=== PATIENT | female | born 1960 | race Caucasian/White ===

== ENCOUNTER → 2019-06-08 09:02 | Outpatient (CLI) | payer MEDICARE, MEDICAID, SELFPAY ==
--- NOTE | 2019-06-08 | DI.MRI.S_ITS ---
PROCEDURE: MR CERVICAL SPINE WO CON INDICATIONS: CERVICALGIA LOW BACK PAIN TECHNIQUE: Noncontrast sagittal T1 spin echo and T2 fast spin echo, sagittal STIR, foraminal oblique sagittal T2 fast spin echo, and axial gradient echo or T2 fast spin echo through the cervical spine. COMPARISON: [facility] Outside Film, CT, CT CERVICAL SPINE WITHOUT CONTRAST, 04/24/2016, 12:29. [facility], MR, MR LUMBAR SPINE WO CON, 06/08/2019, 9:51. [facility] [place], CR, XR CERVICAL SPINE 2 OR 3 VIEWS, 05/23/2019, 14:30. [facility] Outside Film, CT, CT CERVICAL SPINE WITHOUT CONTRAST, 11/13/2016, 14:29. FINDINGS: Image quality: This examination is limited by involuntary motion artifact. Images are repeated, with some improvement. Alignment and Curvature: There is normal bony alignment. Bone Marrow: Marrow demonstrates normal overall signal. Scattered foci are seen, which are hyperintense on T1-weighted and T2-weighted imaging, which are most consistent with benign vertebral body hemangiomas. Spinal Cord: Visualized spinal cord has normal size and signal. No cerebellar tonsillar herniation. Paraspinous Soft Tissues: No paravertebral masses. Prevertebral soft tissues are normal in thickness. C2-C3: Moderate loss of disc height is seen. Loss of disc signal is seen. No significant neural foraminal or central canal narrowing can be seen. C3-C4: The disc height is well-preserved. Loss of disc signal is seen at this level. No significant neural foraminal or central canal narrowing can be seen. C4-C5: Moderate loss of disc height is seen. Loss of disc signal is seen. Moderate generalized disc osteophyte complex is seen. There is a mild central disc osteophyte protrusion, as on series 3 image 20. Uncovertebral joint hypertrophy is seen at this level. Mild to moderate facet hypertrophy is seen. There is moderate to severe bilateral neural foraminal narrowing seen. Moderate central canal narrowing is seen, with mild mass effect upon the ventral spinal cord. C5-C6: There is at least moderate loss of disc height and disc signal seen. At least moderate disc osteophyte complex is seen. Uncovertebral joint hypertrophy is seen at this level. Mild to moderate facet hypertrophy is seen. There is moderate to severe bilateral neural foraminal narrowing seen. Moderate central canal narrowing is seen, with mild mass effect upon the ventral spinal cord. C6-C7: At least moderate loss of disc height and disc signal can be seen. Moderate generalized disc osteophyte complex is seen. Uncovertebral joint hypertrophy is seen at this level. Mild facet joint hypertrophy is seen. There is moderate to severe bilateral neural foraminal narrowing seen, left worse than right. Mild to moderate central canal narrowing is seen, with mild mass effect upon the ventral spinal cord. C7-T1: Moderate loss of disc height is seen. Loss of disc signal is seen. Moderate generalized disc osteophyte complex is seen. [id number]-[id number] bilateral neural foraminal narrowing is seen. No significant central canal narrowing is seen. IMPRESSION: Multiple levels of cervical spine degenerative change are seen, which are most prominent inferiorly. Dictated by: Antony Bates M.D. on 06/08/2019 at 9:15 Approved by: Antony Bates M.D. on 06/08/2019 at 9:24
--- NOTE | 2019-06-08 | DI.MRI.S_ITS ---
PROCEDURE: MR LUMBAR SPINE WO CON INDICATIONS: CERVICALGIA LOW BACK PAIN TECHNIQUE: Noncontrast sagittal T1 spin echo and T2 fast echo, sagittal STIR, axial T1 and T2 fast spin echo through the lumbar spine. In cases with scoliosis, additional coronal T2 fast spin echo may be performed. COMPARISON: [facility] Outside Film, MR, MR LUMBAR SPINE WITHOUT CONTRAST, 08/05/2016, 12:30 (images only, no report). [facility], MR, LUMBAR SPINE W/O CONTRAST, 03/19/2013, 10:30. [facility] Outside Film, CR, XR LUMBAR SPINE 2 OR 3 VIEWS, 04/24/2016, 12:28. [facility] Outside Film, CR, XR LUMBAR SPINE 2 OR 3 VIEWS, 04/10/2018, 14:43. [facility], MR, MR CERVICAL SPINE WO CON, 06/08/2019, 9:12. [facility] [place], CR, XR LUMBAR SPINE 2 OR 3 VIEWS, 05/23/2019, 14:34. FINDINGS: Image quality: Diagnostic, with note made of motion artifact. Alignment and Curvature: There is normal bony alignment. Bone Marrow: Marrow is of normal overall signal. Scattered foci are seen, which are hyperintense on T1-weighted and T2-weighted imaging, which are most consistent with benign vertebral body hemangiomas. No acute vertebral body compression fractures. Spinal Cord: Conus medullaris terminates at the L1 level. Visualized cord demonstrates normal signal and size. Paraspinous Soft Tissues: No paravertebral masses. T12-L1: Moderate loss of disc height is seen. Loss of disc signal is seen. Bridging endplate osteophytes are seen. Mild to moderate disc bulge is seen, with a central/left disc protrusion seen. No neural foraminal narrowing is seen. Mild central canal narrowing is seen. When comparison is made with the prior examination, these findings are similar. L1-L2: Mild to moderate disc bulge is seen, with a central disc protrusion. Mild facet joint hypertrophy is seen. No neural foraminal narrowing is seen. Mild central canal narrowing is seen. When comparison is made with the prior examination, these findings are similar. L2-L3: Mild loss of disc height is seen. Loss of disc signal is seen. Mild generalized disc bulge is seen. Mild facet joint hypertrophy is seen. No significant neural foraminal or central canal narrowing can be seen. When comparison is made with the prior examination, these findings are similar. L3-L4: Mild loss of disc height is seen. Loss of disc signal is seen. Mild to moderate disc bulge is seen, which is eccentric to the left. [id number] bilateral neural foraminal narrowing can be seen. Mild central canal narrowing is seen. No significant change from the prior. L4-L5: Moderate loss of disc height is seen. Loss of disc signal is seen. Moderate disc bulge is seen, with a central/left disc extrusion, with mild superior migration of disc material. Moderate to severe facet hypertrophy is seen. Fluid can be seen within the facet joints themselves. There is moderate to severe bilateral neural foraminal narrowing, right worse than left. There is a degree of compression seen upon the exiting nerve roots. At least moderate central canal narrowing is seen. These degenerative changes have clearly progressed compared to 2017. L5-S1: Moderate loss of disc height is seen. Loss of disc signal is seen. Reactive marrow endplate changes are seen, which are hyperintense on T1-weighted and T2-weighted imaging and most consistent with fatty metaplasia (Modic type II changes). Interval Schmorl's nodes can be seen at the inferior plate of L5 and superior endplate of S1. Moderate generalized disc bulge is seen. Moderate facet joint hypertrophy is seen. Moderate to severe bilateral neural foraminal narrowing is seen at this level. There is a degree of compression seen upon the exiting nerve roots. Mild to moderate central canal narrowing is seen. These degenerative changes have progressed compared to the prior. IMPRESSION: Multiple levels of lumbar spine degenerative change are seen, which are most prominent inferiorly. The degenerative changes at L4-L5 and L5-S1 progressed compared to the outside 2017 MRI examination. There is now seen a disc extrusion at L4-L5. Dictated by: Antony Bates M.D. on 06/08/2019 at 9:40 Approved by: Antony Bates M.D. on 06/08/2019 at 9:48
== END ==
PROVIDERS: PCP Nurse Practitioner Family; Visit Provider Orthopaedic Surgery Orthopaedic Surgery of the Spine
DX: M54.2 Cervicalgia (principal); M47.812 Spondylosis without myelopathy or radiculopathy, cervical region; M47.816 Spondylosis without myelopathy or radiculopathy, lumbar region; M47.817 Spondylosis without myelopathy or radiculopathy, lumbosacral region; M51.26 Other intervertebral disc displacement, lumbar region
CPT/HCPCS: 72141; 72148

== ENCOUNTER → 2019-09-04 15:50 | Outpatient (CLI) | payer MEDICARE, MEDICAID, SELFPAY ==
--- NOTE | 2019-09-04 | DI.ECHO.S_ITS ---
[facility]+ [facility] +---------+ : : [address] : [place] : : : : [id number] : : : : Phone: [phone]+ Echocardiogram Report + + :Name: FEI MCKEON Study Date: 09/04/2019 Height: 62 in : :[facility] Weight: 140 lb : : Gender: Female BSA: 1.6 m2 : :: 1960 Age: 59 yrs BP: 128/74 mmHg: :Reason For Study: Hypertension : :Ordering Physician: : :Joesph Orellana Performed By: Ruth Senior : :Referring: Marimar Gomes : + + Interpretation Summary 1) Normal left ventricular size, thickness, wall motion, and systolic function (EF 60-65%). 2) Normal right ventricular size and function. 3) No significant valvular abnormalities. 4) The right ventricular systolic pressure is estimated to be at least 22 mmHg based on an estimated right atrial pressure of 3 mm Hg. 5) No prior Echo available for comparison. Procedure: A two-dimensional transthoracic echocardiogram with color flow and Doppler was performed. The study quality was technically adequate. There is no prior echocardiogram noted for this patient. The patient was in normal sinus rhythm during the exam. Left Ventricle: The left ventricle is normal in size and wall thickness. The ejection fraction is estimated to be 60-65%. Left ventricular wall motion is normal. Diastolic parameters suggest probable normal left ventricular diastolic function and normal filling pressures. Right Ventricle: The right ventricle is normal in size and function. Atria: Both atria are normal in size. Mitral Valve: The mitral valve is normal in structure and function. There is no mitral regurgitation noted. Aortic Valve: The aortic valve opens well. The aortic valve is trileaflet. There is no aortic valve stenosis. There is trace aortic regurgitation. Tricuspid Valve: The tricuspid valve is normal in structure and function. There is a trace or physiologic amount of tricuspid regurgitation. The right ventricular systolic pressure is estimated to be at least 22 mmHg based on an estimated right atrial pressure of 3 mm Hg. Pulmonic Valve: The pulmonic valve is not well seen, but is grossly normal. There is a trace or physiologic amount of pulmonic regurgitation. Great Vessels: The aortic root is normal size. The ascending aorta is normal in size. The IVC is of normal diameter and collapses greater than 50% with a sniff. This suggests a low right atrial pressure of 3 mm Hg. Pericardium/ Pleura There is no pericardial effusion. MMode/2D Measurements & Calculations LVIDd: 4.7 cm LVOT diam: 2.1 cm LVIDs: 2.8 cm Ao root diam: 3.0 cm FS: 38.9 % asc Aorta Diam: 3.1 cm EPSS: 0.37 cm Ao Arch Diam (Prox Trans): 2.4 cm IVSd: 0.76 cm LVPWd: 1.1 cm LV morin. diameter/BSA (cm/m^2): 2.8 LV sys. diameter/BSA (cm/m^2): 1.7 LA A2 area: 16.0 cm2 RA long axis: 4.8 cm LA A4 area: 15.7 cm2 RA area: 16.2 cm2 LA length (vol): 4.6 cm RA vol: 46.5 ml LA vol: 46.5 ml RA : 28.3 ml/m2 LA vol index: 28.3 ml/m2 IVC diam: 1.7 cm RVD1 (basal): 3.0 cm RVD2 (mid): 3.0 cm TAPSE: 2.2 cm Doppler Measurements & Calculations Ao V2 max: 129.3 cm/sec LVOT Max Theo: 100.4 cm/sec Ao V2 mean: 87.7 cm/sec LV V1 max P.0 mmHg Ao max P.7 mmHg LV V1 VTI: 21.7 cm Ao mean P.4 mmHg EVERTON(I,D): 2.5 cm2 Ao V2 VTI: 28.2 cm EVERTON(V,D): 2.6 cm2 sev ratio: 0.77 EVERTON indexed to BSA (cm^2/m^2): 1.5 MV E max theo: 77.7 cm/sec TR max theo: 220.4 cm/sec MV A max theo: 73.0 cm/sec TR max P.4 mmHg MV E/A: 1.1 PA V2 max: 93.2 cm/sec Med Peak E' Theo: 7.7 cm/sec PA V2 mean: 64.9 cm/sec E/E' med: 10.1 PA mean P.9 mmHg Lat Peak E' Theo: 11.8 cm/sec PA pr(Accel): 30.7 mmHg E/E' lat: 6.6 PA Accel Time: 0.12 sec E/e' average: 8.4 MV dec time: 0.22 sec MV P1/2t: 63.2 msec MV P1/2t max theo: 79.5 cm/sec SV(LVOT): 71.7 ml MVA(P1/2t): 3.5 cm2 Reading Physician:[id number] PM
== END ==
PROVIDERS: PCP Family Medicine; Referring Provider Family Medicine; Visit Provider Internal Medicine Pulmonary Disease
DX: I27.20 Pulmonary hypertension, unspecified (principal)
CPT/HCPCS: 93306

== ENCOUNTER 2019-09-21 15:04 | Inpatient (IN) | payer MEDICARE, MEDICAID, SELFPAY ==
[2019-09-21] VITALS (12 sets, daily range): BP systolic 92–114; BP diastolic 52–61; PULSE 68–94; RESP 18–83; TEMP 36.6–37.4; O2SAT 4–98; BMI 23.8
--- NOTE | 2019-09-21 15:06 | DI.RAD.S_ITS ---
PROCEDURE: XR CHEST 1V INDICATIONS: SOB TECHNIQUE: One view of the chest was acquired. COMPARISON: Outside Film, CR, XR CHEST 2 VIEWS, 05/15/2018, 12:52. FINDINGS: Surgical changes and devices: None. Lungs and pleura: Bilateral patchy pulmonary opacities are present. Mediastinum: Mediastinal contours appear normal. Heart size is minimally prominent. Bones and chest wall: No suspicious bony lesions. Overlying soft tissues appear unremarkable. IMPRESSION: Bilateral pulmonary opacities suggestive of pneumonia. Areas of underlying edema and/or atelectasis cannot be excluded. Dictated by: Lynn Trujillo M.D. on 09/21/2019 at 16:09 Approved by: Lynn Trujillo M.D. on 09/21/2019 at 16:10
--- NOTE | 2019-09-21 15:15 | ED_ITS ---
HPI - General Adult General Chief complaint: Shortness of Breath/Dyspnea Stated complaint: SOB Time Seen by Provider: 09/21/19 15:05 Source: patient Mode of arrival: EMS Limitations: no limitations History of Present Illness HPI narrative: Patient is a 59-year-old female. Has a history of COPD. Is on 2 L of oxygen at home by nasal cannula. Here for evaluation of 3-4 days of dyspnea on exertion, productive cough, subjective fevers. No chest pain. No lower extremity swelling. No recent travel. No recent antibiotic use. She does not have a nebulizer at home. She states that her nebulizer broke. 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 She does use a Symbicort inhaler at home. Does take Lasix. No diagnosis of heart failure. Has been taking the rest of her medications. Received a DuoNeb in route by EMS Related Data Home Medications Medication Instructions Recorded Confirmed amitriptyline 100 mg PO BEDTIME 09/21/19 09/21/19 aspirin 81 mg PO QAM 09/21/19 09/21/19 budesonide-formoterol [Symbicort] 2 inh INHALATION BID 09/21/19 09/21/19 duloxetine 120 mg PO QAM 09/21/19 09/21/19 estradiol 0.5 mg PO QAM 09/21/19 09/21/19 furosemide 20 mg PO MOWEFR 09/21/19 09/21/19 gabapentin 1,200 mg PO TID 09/21/19 09/21/19 ibuprofen 800 mg PO TID PRN 09/21/19 09/21/19 lisinopril 2.5 mg PO QAM 09/21/19 09/21/19 lorazepam 0.5 mg PO DAILY PRN 09/21/19 09/21/19 metformin 500 mg PO BID 09/21/19 09/21/19 potassium chloride 20 meq PO QAM 09/21/19 09/21/19 pregabalin 75 mg PO TID 09/21/19 09/21/19 primidone 450 mg PO BEDTIME 09/21/19 09/21/19 ranitidine HCl 150 mg PO BEDTIME 09/21/19 09/21/19 simvastatin 20 mg PO BEDTIME 09/21/19 09/21/19 Allergies Allergy/AdvReac Type Severity Reaction Status Date / Time Sulfa (Sulfonamide Allergy Verified 09/21/19 15:16 Antibiotics) Review of Systems Constitutional Constitutional: Denies fatigue and Reports fever(s) ENT Ears, Nose, Mouth, and Throat: Denies vertigo and Denies dizziness Cardiovascular Cardiovascular: Denies chest pain, Denies rapid heart rate, Denies pedal edema, Denies edema, Reports dyspnea and Reports dyspnea on exertion Respiratory Respiratory: Reports cough, Reports dyspnea and Reports dyspnea on exertion Gastrointestinal Gastrointestinal: Denies abdominal pain, Denies nausea and Denies vomiting Genitourinary Genitourinary: Reports dysuria and Reports urinary urgency Musculoskeletal Musculoskeletal: Denies myalgias and Denies arthralgias Integumentary/Breasts Skin/Breast: Denies rash Neurologic Neurologic: Denies vertigo and Denies dizziness Endocrine Endocrine: Denies fatigue Hematologic/Lymphatic Hematologic/Lymphatic: Denies easy bleeding and Denies easy bruising Patient History Medical History (Updated 09/21/19 @ 17:56 by Quinten Valencia DO) COPD (chronic obstructive pulmonary disease) (Acute) Diabetes (Acute) Gastroesophageal reflux disease (Acute) Hypertension (Acute) Social History Smoking Status: Current every day smoker Exam Initial Vital Signs Initial Vital Signs: Vital Signs Temperature 99.1 F 09/21/19 15:16 Pulse Rate 84 09/21/19 15:16 Respiratory Rate 32 H 09/21/19 15:16 Blood Pressure 110/59 L 09/21/19 15:16 Pulse Oximetry 82 L 09/21/19 15:16 Const General: cooperative, comfortable and well developed Limitations: mental status not altered Resp Effort & Inspection: not labored and tachypneic Auscultation: clear to auscultation bilaterally Cardio Rate: tachycardic Rhythm: regular rhythm GI Inspection: non-distended Palpation: soft Skin Lesions: no lesions Rashes: no rashes Neuro General: alert and awake Cognition: normal cognition Speech: speech normal Extrem General: normal to inspection and capillary refill normal Psych Appearance: grossly normal and well kempt Scores GCS [place] coma scale eye opening: Spontaneous [place] coma scale verbal response: Orientated [place] coma scale motor response: Obey commands [place] coma scale total score: 15 Course Orders Ordered: ED Orders 09/21/19 15:00 Blood Culture Stat Complete Blood Count AUTO DIFF Stat Comprehensive Metabolic Panel Stat Lipase Stat NT-proBNP (BNP-Adult 18+) Stat Partial Thromboplastin Time Stat Procalcitonin Stat Prothrombin Time INR Stat Troponin I Stat 09/21/19 15:06 XR chest 1V Stat EKG-12 Lead Stat 09/21/19 15:50 Urine Culture Stat Urine Microscopic Stat 09/21/19 16:30 Respiratory Panel (Film Array) Stat Discontinued Medications Albuterol (Ventolin Hfa Prepack) 1 box MISC SEEINSTR ONE Stop: 09/21/19 17:20 Last Admin: 09/21/19 17:42 Dose: 1 box Documented by: ODALIS Albuterol/Ipratropium (Duoneb) 3 ml INH NOW ONE Stop: 09/21/19 15:11 Last Admin: 09/21/19 15:23 Dose: 3 ml Documented by: OSMIN Albuterol/Ipratropium (Duoneb) 6 ml INH NOW ONE Stop: 09/21/19 15:56 Last Admin: 09/21/19 15:57 Dose: 6 ml Documented by: OSMIN Levofloxacin (Levaquin) 750 mg in 150 mls @ 100 mls/hr IV NOW ONE Stop: 09/21/19 16:43 Last Infusion: 09/21/19 17:36 Dose: 0 mls/hr Documented by: Admin: 09/21/19 15:58 Dose: 100 mls/hr Documented by: JOSE Methylprednisolone (Solu-Medrol 125 Mg Vial) 125 mg IV NOW ONE Stop: 09/21/19 15:15 Last Admin: 09/21/19 15:30 Dose: 125 mg Documented by: JOSE Ondansetron HCl (Zofran) 4 mg IV NOW ONE Stop: 09/21/19 17:20 Last Admin: 09/21/19 17:36 Dose: 4 mg Documented by: JOSE Potassium Chloride (Potassium Chloride) 40 meq PO NOW ONE Stop: 09/21/19 15:57 Last Admin: 09/21/19 16:04 Dose: 40 meq Documented by: JOSE Vital Signs Vital signs: Vital Signs - 8 hr 09/21/19 15:16 09/21/19 15:17 09/21/19 15:24 Temperature 99.1 F Pulse Rate 84 80 Respiratory Rate 32 H 18 Blood Pressure 110/59 L Blood Pressure [Left Arm] Pulse Oximetry 82 L 91 91 09/21/19 15:57 09/21/19 16:12 09/21/19 17:00 Temperature Pulse Rate 94 H 80 83 Respiratory Rate 83 H 42 H 38 H Blood Pressure Blood Pressure [Left Arm] 100/59 L 107/57 L Pulse Oximetry 4 L 92 94 09/21/19 17:27 Temperature Pulse Rate 82 Respiratory Rate 30 H Blood Pressure Blood Pressure [Left Arm] Pulse Oximetry 98 Medical Decision Making Lab Data Lab results reviewed: Yes I reviewed the patient's lab results. Result diagrams: 09/21/19 15:00 09/21/19 15:00 Labs: Lab Results 09/21/19 09/21/19 09/21/19 Range/Units 15:00 15:00 15:00 WBC 8.8 (4.5-11.0) X10^3/uL RBC 4.55 (4.0-5.2) X10^6/uL Hgb 10.9 L (12.0-16.0) g/dL Hct 33.7 L (36-46) % MCV 74.2 L (80-100) fL MCH 24.0 L (26-34) PG MCHC 32.3 (30-36) % RDW 20.3 H (11.6-14.8) % Plt Count 327 (150-400) X10^3/uL Neut % (Auto) 73.9 (50-75) % Lymph % (Auto) 18.8 L (25-40) % [place] % (Auto) 3.4 (3-14) % Eos % (Auto) 3.1 (2-4) % Baso % (Auto) 0.8 (0-2) % Neut # (Auto) 6500 (3257-1748) /uL Lymph # (Auto) 1700 (3558-7136) /uL [place] # (Auto) 300 (0-900) /uL Eos # (Auto) 300 (0-450) /uL Baso # (Auto) 100 (0-100) /uL Toxic Vacuolation Present H RBC Morphology See below Polychromasia 1+ H Hypochromasia 1+ H Anisocytosis 1+ H PT 14.3 H (10.1-12.7) SECONDS INR 1.2 (0.9-1.3) APTT 31 (26.4-36.2) SECONDS Sodium 130 L (137-145) mmol/L Potassium 3.0 L (3.4-5.1) mmol/L Chloride 92 L (98-107) mmol/L Carbon Dioxide 27 (22-32) mmol/L BUN 6 L (7-17) mg/dL Creatinine 0.40 L (0.52-1.04) mg/dL Estimated GFR > 60.0 (>60) mL/min BUN/Creatinine Ratio 15.0 (6-22) Glucose 98 (70-100) mg/dL Calcium 8.3 L (8.4-10.2) mg/dL Total Bilirubin 0.6 (0.2-1.3) mg/dL AST 47 H (14-36) IU/L ALT 15 (<35) IU/L Alkaline Phosphatase 138 H (38-126) U/L Troponin I < 0.012 (0.01-0.034) ng/mL NT-Pro-B Natriuret Pep 1360 H (<125) pg/mL Total Protein 7.7 (6.3-8.2) g/dL Albumin 3.5 (3.5-5.0) g/dL Globulin 4.2 H (1.7-4.1) g/dL Albumin/Globulin Ratio 0.8 L (1.0-2.8) Lipase 81 (23-300) U/L Procalcitonin (<0.5) ng/mL Urine RBC (0-5/HPF) Urine WBC (0-5/HPF) Ur Squamous Epith Cells (0-5/HPF) Amorphous Sediment Urine Bacteria (None) Urine Mucus (Negative) Ur Culture Indicated? Chlamy pneumoniae PCR (Not Detect) Adenovirus (PCR) (Not Detect) B.parapertussis DNA PCR (Not Detect) Coronavirus OC43 (PCR) (Not Detect) Coronavirus HKU1 (PCR) (Not Detect) Coronavirus 229E (PCR) (Not Detect) Coronavirus NL63 (PCR) (Not Detect) Human Metapneumovir PCR (Not Detect) Influenza Type A (PCR) (Not Detect) Influenza Type B (PCR) (Not Detect) M. pneumoniae (PCR) (Not Detect) Parainfluenza 1 (PCR) (Not Detect) Parainfluenza 2 (PCR) (Not Detect) Parainfluenza 3 (PCR) (Not Detect) Parainfluenza 4 (PCR) (Not Detect) RSV (PCR) (Not Detect) Entero/Rhino (PCR) (Not Detect) 09/21/19 09/21/19 09/21/19 Range/Units 15:00 15:50 16:30 WBC (4.5-11.0) X10^3/uL RBC (4.0-5.2) X10^6/uL Hgb (12.0-16.0) g/dL Hct (36-46) % MCV (80-100) fL MCH (26-34) PG MCHC (30-36) % RDW (11.6-14.8) % Plt Count (150-400) X10^3/uL Neut % (Auto) (50-75) % Lymph % (Auto) (25-40) % [place] % (Auto) (3-14) % Eos % (Auto) (2-4) % Baso % (Auto) (0-2) % Neut # (Auto) (4965-7195) /uL Lymph # (Auto) (4417-6575) /uL [place] # (Auto) (0-900) /uL Eos # (Auto) (0-450) /uL Baso # (Auto) (0-100) /uL Toxic Vacuolation RBC Morphology Polychromasia Hypochromasia Anisocytosis PT (10.1-12.7) SECONDS INR (0.9-1.3) APTT (26.4-36.2) SECONDS Sodium (137-145) mmol/L Potassium (3.4-5.1) mmol/L Chloride (98-107) mmol/L Carbon Dioxide (22-32) mmol/L BUN (7-17) mg/dL Creatinine (0.52-1.04) mg/dL Estimated GFR (>60) mL/min BUN/Creatinine Ratio (6-22) Glucose (70-100) mg/dL Calcium (8.4-10.2) mg/dL Total Bilirubin (0.2-1.3) mg/dL AST (14-36) IU/L ALT (<35) IU/L Alkaline Phosphatase (38-126) U/L Troponin I (0.01-0.034) ng/mL NT-Pro-B Natriuret Pep (<125) pg/mL Total Protein (6.3-8.2) g/dL Albumin (3.5-5.0) g/dL Globulin (1.7-4.1) g/dL Albumin/Globulin Ratio (1.0-2.8) Lipase (23-300) U/L Procalcitonin 0.06 (<0.5) ng/mL Urine RBC None seen (0-5/HPF) Urine WBC 1-5/hpf (0-5/HPF) Ur Squamous Epith Cells 1-5 /hpf (0-5/HPF) Amorphous Sediment 1+ Urine Bacteria Many (>30) H (None) Urine Mucus 1+ H (Negative) Ur Culture Indicated? Specimen cultured Chlamy pneumoniae PCR Not detected (Not Detect) Adenovirus (PCR) Not detected (Not Detect) B.parapertussis DNA PCR Not detected (Not Detect) Coronavirus OC43 (PCR) Not detected (Not Detect) Coronavirus HKU1 (PCR) Not detected (Not Detect) Coronavirus 229E (PCR) Not detected (Not Detect) Coronavirus NL63 (PCR) Not detected (Not Detect) Human Metapneumovir PCR Detected H (Not Detect) Influenza Type A (PCR) Not detected (Not Detect) Influenza Type B (PCR) Not detected (Not Detect) M. pneumoniae (PCR) Not detected (Not Detect) Parainfluenza 1 (PCR) Not detected (Not Detect) Parainfluenza 2 (PCR) Not detected (Not Detect) Parainfluenza 3 (PCR) Not detected (Not Detect) Parainfluenza 4 (PCR) Not detected (Not Detect) RSV (PCR) Not detected (Not Detect) Entero/Rhino (PCR) Not detected (Not Detect) Urine Dip Bedside Urine Glucose Negative Bedside Urine Bilirubin + 1 Bedside Urine Ketone +++ 80 Urine Specific [place] 1.020 Bedside Urine Occult Blood - Negative Bedside Urine pH 6.0 Bedside Urine Protein + 30 Bedside Urine Urobilinogen 1+ 2mg Bedside Urine Nitrite + Positive Bedside Urine Leukocytes +/- 15 Esterase Point of care testing: Urine Dip Bedside Urine Glucose Negative Bedside Urine Bilirubin + 1 Bedside Urine Ketone +++ 80 Urine Specific [place] 1.020 Bedside Urine Occult Blood - Negative Bedside Urine pH 6.0 Bedside Urine Protein + 30 Bedside Urine Urobilinogen 1+ 2mg Bedside Urine Nitrite + Positive Bedside Urine Leukocytes +/- 15 Esterase Imaging Data Chest x-ray: Radiologist's Impression: [address] [address] XRay Report Signed Patient: Dana Bardales AMR#: [id number] : 1Acct:[id number] Age/Sex: 59 / FDate of Service: 09/21/19 Loc: ED Accession Number: [id number] Procedure: XR chest 1V Ordering Provider: Quinten Valencia D.O. PROCEDURE: XR CHEST 1V INDICATIONS: SOB TECHNIQUE: One view of the chest was acquired. COMPARISON: Outside Film, CR, XR CHEST 2 VIEWS, 05/15/2018, 12:52. FINDINGS: Surgical changes and devices: None. Lungs and pleura: Bilateral patchy pulmonary opacities are present. Mediastinum: Mediastinal contours appear normal. Heart size is minimally prominent. Bones and chest wall: No suspicious bony lesions. Overlying soft tissues appear unremarkable. IMPRESSION: Bilateral pulmonary opacities suggestive of pneumonia. Areas of underlying edema and/or atelectasis cannot be excluded. Dictated by: Lynn Trujillo M.D. on 09/21/2019 at 16:09 Approved by: Lynn Trujillo M.D. on 09/21/2019 at 16:10 ECG Data Attestation: I personally reviewed and interpreted this ECG as follows: Prior ECG tracings: not available for review Interpretation: Sinus rhythm Ventricular rate 82 Normal axis Normal QRS Normal QTC Nonspecific ST T wave changes MDM Narrative Medical decision making narrative: Patient was afebrile, no leukocytosis however does have COPD and has had increased sputum production and dyspnea on exertion. Chest x-ray is concerning for pneumonia. Respiratory panel pending. Was given Levaquin and steroids. Patient is also having dysuria and urinary frequency. Her urinalysis is consistent with a urinary tract infection. The Levaquin should cover for this as well. Patient normally at 2 L nasal cannula. Here in the emergency department patient needed 5 L in order to maintain oxygen saturations greater than 90. She did become hypoxic and dyspneic whenever she stood up even to use a bedside urinal. Patient was slightly hypokalemic. This could potentially have been secondary to the albuterol she received prior to arrival. She was ordered p.o. potassium for this. Was given 2 more DuoNebs here in the ER. EKG is nonspecific. Patient is not having chest pain. Does have an elevated BNP however has an echocardiogram from earlier this year showing an ejection fraction of greater than 60%. Will hold on Lasix. Given the increased oxygen requirement and the dyspnea on exertion feel that patient needs admitted to the hospital for respiratory care and also antibiotics. Discussed the case with Dr. Sánchez with Internal Medicine who will admit. Discussed the admission with the patient. She expressed understanding and agreement. Discharge Plan Departure Patient Disposition: Admitted As Inpatient Clinical Impression: Acute exacerbation of chronic obstructive airways disease, Community acquired pneumonia, Acute UTI, Hypoxia, Hypokalemia Referrals: Joesph Orellana MD [Primary Care Provider] -
[2019-09-21] MEDS: ALBUTEROL/IPRATROPIUM 3 ML AMPUL INH (15:23)
[2019-09-21] MEDS: methylPREDNISolone 125 MG/2 ML VIAL IV (15:30)
[2019-09-21 15:32] LABS: Add Manual Diff / Slide Review NO; Basophils Absolute Auto 100 /uL (0-100); Basophils Percent Auto 0.8 % (0-2); Eosinophils Absolute Auto 300 /uL (0-450); Eosinophils Percent Auto 3.1 % (2-4); Hematocrit 33.7 % (36-46); Hemoglobin 10.9 g/dL (12.0-16.0); Lymphocytes Absolute Auto 1700 /uL (1100-4500); Lymphocytes Percent Auto 18.8 % (25-40); Mean Corpuscular HGB Conc 32.3 % (30-36); Mean Corpuscular Volume 74.2 fL (80-100); Monocytes Absolute Auto 300 /uL (0-900); Monocytes Percent Auto 3.4 % (3-14); Neutrophils Absolute Auto 6500 /uL (1500-7000); Neutrophils Percent Auto 73.9 % (50-75); Platelet Count 327 X10^3/uL (150-400); Red Blood Cell Count 4.55 X10^6/uL (4.0-5.2); Red Cell Distribution Width 20.3 % (11.6-14.8); White Blood Cell Count 8.8 X10^3/uL (4.5-11.0)
[2019-09-21 15:40] LABS: INR 1.2 (0.9-1.3); Prothrombin Time 14.3 SECONDS (10.1-12.7)
[2019-09-21 15:42] LABS: PTT Partial Thromboplastin Tim 31 SECONDS (26.4-36.2)
[2019-09-21 15:45] LABS: Alanine Aminotransferase 15 IU/L (<35); Albumin 3.5 g/dL (3.5-5.0); Albumin Globulin Ratio 0.8 (1.0-2.8); Alkaline Phosphatase 138 U/L (38-126); Aspartate Aminotransferase 47 IU/L (14-36); Bilirubin Total 0.6 mg/dL (0.2-1.3); Blood Urea Nitrogen 6 mg/dL (7-17); Calcium 8.3 mg/dL (8.4-10.2); Carbon Dioxide 27 mmol/L (22-32); Chloride 92 mmol/L (98-107); Estimated Glomerular Filt Rate > 60.0 mL/min (>60); Globulin 4.2 g/dL (1.7-4.1); Glucose 98 mg/dL (70-100); HEMOLYSIS < 15 (0-50); Lipase 81 U/L (23-300); Sodium 130 mmol/L (137-145); Total Protein 7.7 g/dL (6.3-8.2)
[2019-09-21 15:56] LABS: Troponin I < 0.012 ng/mL (0.01-0.034)
[2019-09-21 15:57] LABS: Anisocytosis 1+; Hypochromasia 1+; Polychromasia 1+; Toxic Vacuolation Present
[2019-09-21] MEDS: ALBUTEROL/IPRATROPIUM 3 ML AMPUL 6 ML INH (15:57)
[2019-09-21] MEDS: levoFLOXacin 750 MG/150 ML PIGGYBACK 100 MG IV (15:58)
[2019-09-21 16:01] LABS: Procalcitonin 0.06 ng/mL (<0.5)
[2019-09-21 16:03] LABS: NT-proBNP (BNP-Adult 18+) 1360 pg/mL (<125)
[2019-09-21] MEDS: POTASSIUM CHLORIDE 20 MEQ/15 ML UDC 40 MEQ PO (16:04)
[2019-09-21 16:09] LABS: RBC Urine None Seen (0-5/HPF)
[2019-09-21 16:18] LABS: Amorphous Sediment Urine 1+; Bacteria Urine Many (>30); Culture Indicated Urine Specimen Cultured; Mucus Urine 1+ (Negative); Squamous Epithelial Cell Urine 1-5 /HPF (0-5/HPF); WBC Urine 1-5/HPF (0-5/HPF)
[2019-09-21] MEDS: ONDANSETRON 4 MG/2 ML INJ IV (17:36)
--- NOTE | 2019-09-21 17:36 | PC.NURSE ---
Respiratory with patient. Discussed concern with patient going home. Pt is coughing. Sats 79% on 5 LPM.. When coughing stops pt sats increase to 90% with time. Notified Dr Valencia and cupola tapper helperADRY Milan
[2019-09-21] MEDS: ALBUTEROL HFA PREPACK 1 BOX MISC (17:42)
[2019-09-21 17:47] LABS: Adenovirus Not Detected (Not Detect); Coronavirus 229E Not Detected (Not Detect); Coronavirus HKU1 Not Detected (Not Detect); Coronavirus NL 63 Not Detected (Not Detect); Coronavirus OC43 Not Detected (Not Detect); Human Metapneumovirus Detected (Not Detect)
[2019-09-21 17:48] LABS: Bordetella pertussis Not Detected (Not Detect); Chlamydophila pneumoniae Not Detected (Not Detect); Human Rhinovirus/Enterovirus Not Detected (Not Detect); Influenza A Not Detected (Not Detect); Influenza B Not Detected (Not Detect); Mycoplasma pneumoniae Not Detected (Not Detect); Parainfluenza Virus 1 Not Detected (Not Detect); Parainfluenza Virus 2 Not Detected (Not Detect); Parainfluenza Virus 3 Not Detected (Not Detect); Parainfluenza Virus 4 Not Detected (Not Detect); Respiratory Syncytial Virus Not Detected (Not Detect)
--- NOTE | 2019-09-21 20:15 | PC.ADMIT ---
NO [id number] 15 Admission Note: The patient,Dana Bardales,59 y/o, was given written information regarding hospital policies, unit procedures and contact persons. Pt arrived from ED via stretcher on 4L NC. Stand pivot trans to bed. Increased oxygen for trans, Sats dropped to mid 70's during trans; returned to 88-91%. Once in bed able to decrease O2 to 4L sats 88-91%. R.T. in for eval and Humidification applied to oxygen. Denies pain. Oriented to room and call system. Bed alarm on. Patient's smoking status: Current every day smoker. Vital Signs - 8 hr 09/21/19 15:16 09/21/19 15:17 09/21/19 15:24 Temperature 99.1 F Pulse Rate 84 80 Respiratory Rate 32 H 18 Blood Pressure 110/59 L Blood Pressure [Left Arm] Pulse Oximetry 82 L 91 91 09/21/19 15:57 09/21/19 16:12 09/21/19 17:00 Temperature Pulse Rate 94 H 80 83 Respiratory Rate 83 H 42 H 38 H Blood Pressure Blood Pressure [Left Arm] 100/59 L 107/57 L Pulse Oximetry 4 L 92 94 09/21/19 17:27 09/21/19 17:50 09/21/19 18:48 Temperature 99.4 F Pulse Rate 82 84 77 Respiratory Rate 30 H 20 27 H Blood Pressure Blood Pressure [Left Arm] 98/54 L Pulse Oximetry 98 90 L 86 L 09/21/19 19:34 Temperature 99.4 F Pulse Rate 75 Respiratory Rate 31 H Blood Pressure 96/55 L Blood Pressure [Left Arm] Pulse Oximetry 93
--- NOTE | 2019-09-21 20:17 | PM.HP.1 ---
History of Present Illness History of Present Illness Date Patient Seen: 09/21/19 Time Patient Seen: 20:17 Chief complaint: SOB Narrative: The patient is a 59-year-old female with PMH of COPD, pulmonary fibrosis, PAH, chronic respiratory failure with hypoxia / O2 dependence (2L), current 1PPD smoker (w/ 20 PYH of tobacco dependence), DM 2T, neuropathy, essential tremor, HLD, GERD, andxiety Patient presented to the ED on 09/21/2019 out of concern for shortness of breath. Patient reports a 2 week history of not feeling well with associated symptoms of fever, chills, malaise, myalgia, cough, pleurisy, dizziness/lightheadedness (w/ position change), and dysuria. Reports severe malaise, myalgia, and cough for the 1st week, which has now improved. Patient describes her cough as productive with clear phlegm without increased purulence in the first week, but has now been more of a dry couth. Reports increase use of her home nebulizer treatments, with partial relief of symptoms. Symptoms are exacerbated by exertion. Patient denies chest pain, palpitations, abdominal pain, and gastrointestinal distress. Denies peripheral edema and orthopnea. Patient denies recent travel. Denies exposure to ill contacts. ED Presentation & Work-Up VS, 09/21 1516. T 99.1F BP 110/59 HR 84 RR 32 SpO2 82% on 2L Labs 09/21 1500 WBC 8.8 PCT 0.06 Hgb 10.9 Plt 327 PT 14.3 INR 1.2 aPTT 31 Na 130 K 3.0 Cl 92 Ca 8.3 Alb 3.5 Glu 98 CO2 27 BUN 6 Cr 0.4 BUN:Cr 15 AST 47 ALT 15 ALP 138 Lipase 81 Trop < 0.012 NT-proBNP 1360 UA Dip bacteria > 30 + nitrite + LE In ED treated w/ DuoNeb (1523), methylprednisolone 125 mg IV (1530), DuoNeb x2 (1557), levofloxacin 750 IV (1558), KCl oral 40 mEq (1604), ondansetron 4 mg IV (1736), albuterol Patient History Medical History (Updated 09/21/19 @ 22:07 by JOCELYN Layne) COPD (chronic obstructive pulmonary disease) (Chronic) Diabetes (Acute) Gastroesophageal reflux disease (Acute) Hypertension (Acute) Pulmonary fibrosis (Chronic) Pulmonary hypertension (Chronic) Surgical History (Updated 09/21/19 @ 22:22 by JOCELYN Layne) History of 2 sections (Chronic) History of total abdominal hysterectomy (Chronic 2002) Family & Social History Family History (Updated 09/21/19 @ 22:19 by JOCELYN Layne) Mother Hypertension Cancer Psychiatric illness Emphysema/COPD ASHD (arteriosclerotic heart disease) Father Diabetes mellitus Hypertension Safety & Behavioral: Feels Safe in Current Yes Environment Tobacco & Substance use: Smoking Status Current every day smoker, 20 PYH; currently smokes 1PPD Substance Use Type does not use Meds Home Medications and Allergies Home Medications Medication Instructions Recorded Confirmed Type amitriptyline 100 mg PO BEDTIME 09/21/19 09/21/19 History aspirin 81 mg PO QAM 09/21/19 09/21/19 History budesonide-formoterol [Symbicort] 2 inh INHALATION BID 09/21/19 09/21/19 History duloxetine 120 mg PO QAM 09/21/19 09/21/19 History estradiol 0.5 mg PO QAM 09/21/19 09/21/19 History furosemide 20 mg PO MOWEFR 09/21/19 09/21/19 History gabapentin 1,200 mg PO TID 09/21/19 09/21/19 History ibuprofen 800 mg PO TID PRN 09/21/19 09/21/19 History lisinopril 2.5 mg PO QAM 09/21/19 09/21/19 History lorazepam 0.5 mg PO DAILY PRN 09/21/19 09/21/19 History metformin 500 mg PO BID 09/21/19 09/21/19 History potassium chloride 20 meq PO QAM 09/21/19 09/21/19 History pregabalin 75 mg PO TID 09/21/19 09/21/19 History primidone 450 mg PO BEDTIME 09/21/19 09/21/19 History ranitidine HCl 150 mg PO BEDTIME 09/21/19 09/21/19 History simvastatin 20 mg PO BEDTIME 09/21/19 09/21/19 History Allergies Allergy/AdvReac Type Severity Reaction Status Date / Time Sulfa (Sulfonamide Allergy Verified 09/21/19 15:16 Antibiotics) Review of Systems Review of Systems ROS: Yes All systems reviewed with the patient and are negative except as otherwise documented Exam Vital Signs (past 8 hours): - 09/21/19 15:16 09/21/19 15:17 09/21/19 15:24 Temperature 99.1 F Pulse Rate 84 80 Respiratory Rate 32 H 18 Blood Pressure 110/59 L Blood Pressure [Left Arm] Pulse Oximetry 82 L 91 91 09/21/19 15:57 09/21/19 16:12 09/21/19 17:00 Temperature Pulse Rate 94 H 80 83 Respiratory Rate 83 H 42 H 38 H Blood Pressure Blood Pressure [Left Arm] 100/59 L 107/57 L Pulse Oximetry 4 L 92 94 09/21/19 17:27 09/21/19 17:50 09/21/19 18:48 Temperature 99.4 F Pulse Rate 82 84 77 Respiratory Rate 30 H 20 27 H Blood Pressure Blood Pressure [Left Arm] 98/54 L Pulse Oximetry 98 90 L 86 L 09/21/19 19:34 Temperature 99.4 F Pulse Rate 75 Respiratory Rate 31 H Blood Pressure 96/55 L Blood Pressure [Left Arm] Pulse Oximetry 93 Oxygen Delivery Method Nasal Cannula Oxygen Flow Rate 6 Narrative Exam Narrative: Constitutional: NAD Neurologic: AOx3, no focal neurological deficits Head: NC, AT Eyes: PERRL, EOMI Ears: external ears normal, no otorrhea Nose: external nose normal, no rhinorrhea or epistaxis Throat: MMM, oropharynx w/o exudate Neck: no masses, lymphadenopathy, or JVD Chest / Respiratory: coarse, on 5L of oxygen Heart / CV: S1S2, no murmur Abdomen / GI: round, NT, ND, + BS, no organomegaly : no suprapubic tenderness, no CVA Peripheral / Vascular: warm to touch, DP and PT pulses palpable, no edema Musc: full ROM of upper and lower extremities, adequate muscle tone and bulk Skin: no ecchymosis or suspicious lesions / ulcers Objective Labs Result Diagrams: 09/21/19 15:00 09/21/19 15:00 Labs: Laboratory Results - last 24 hr 09/21/19 09/21/19 09/21/19 15:00 15:00 15:00 WBC 8.8 RBC 4.55 Hgb 10.9 L Hct 33.7 L MCV 74.2 L MCH 24.0 L MCHC 32.3 RDW 20.3 H Plt Count 327 Neut % (Auto) 73.9 Lymph % (Auto) 18.8 L [place] % (Auto) 3.4 Eos % (Auto) 3.1 Baso % (Auto) 0.8 Neut # (Auto) 6500 Lymph # (Auto) 1700 [place] # (Auto) 300 Eos # (Auto) 300 Baso # (Auto) 100 Toxic Vacuolation Present H RBC Morphology See below Polychromasia 1+ H Hypochromasia 1+ H Anisocytosis 1+ H PT 14.3 H INR 1.2 APTT 31 Sodium 130 L Potassium 3.0 L Chloride 92 L Carbon Dioxide 27 BUN 6 L Creatinine 0.40 L Estimated GFR > 60.0 BUN/Creatinine Ratio 15.0 Glucose 98 Calcium 8.3 L Total Bilirubin 0.6 AST 47 H ALT 15 Alkaline Phosphatase 138 H Troponin I < 0.012 NT-Pro-B Natriuret Pep 1360 H Total Protein 7.7 Albumin 3.5 Globulin 4.2 H Albumin/Globulin Ratio 0.8 L Lipase 81 Procalcitonin Urine RBC Urine WBC Ur Squamous Epith Cells Amorphous Sediment Urine Bacteria Urine Mucus Ur Culture Indicated? Chlamy pneumoniae PCR Adenovirus (PCR) B.parapertussis DNA PCR Coronavirus OC43 (PCR) Coronavirus HKU1 (PCR) Coronavirus 229E (PCR) Coronavirus NL63 (PCR) Human Metapneumovir PCR Influenza Type A (PCR) Influenza Type B (PCR) M. pneumoniae (PCR) Parainfluenza 1 (PCR) Parainfluenza 2 (PCR) Parainfluenza 3 (PCR) Parainfluenza 4 (PCR) RSV (PCR) Entero/Rhino (PCR) 09/21/19 09/21/19 09/21/19 15:00 15:50 16:30 WBC RBC Hgb Hct MCV MCH MCHC RDW Plt Count Neut % (Auto) Lymph % (Auto) [place] % (Auto) Eos % (Auto) Baso % (Auto) Neut # (Auto) Lymph # (Auto) [place] # (Auto) Eos # (Auto) Baso # (Auto) Toxic Vacuolation RBC Morphology Polychromasia Hypochromasia Anisocytosis PT INR APTT Sodium Potassium Chloride Carbon Dioxide BUN Creatinine Estimated GFR BUN/Creatinine Ratio Glucose Calcium Total Bilirubin AST ALT Alkaline Phosphatase Troponin I NT-Pro-B Natriuret Pep Total Protein Albumin Globulin Albumin/Globulin Ratio Lipase Procalcitonin 0.06 Urine RBC None seen Urine WBC 1-5/hpf Ur Squamous Epith Cells 1-5 /hpf Amorphous Sediment 1+ Urine Bacteria Many (>30) H Urine Mucus 1+ H Ur Culture Indicated? Specimen cultured Chlamy pneumoniae PCR Not detected Adenovirus (PCR) Not detected B.parapertussis DNA PCR Not detected Coronavirus OC43 (PCR) Not detected Coronavirus HKU1 (PCR) Not detected Coronavirus 229E (PCR) Not detected Coronavirus NL63 (PCR) Not detected Human Metapneumovir PCR Detected H Influenza Type A (PCR) Not detected Influenza Type B (PCR) Not detected M. pneumoniae (PCR) Not detected Parainfluenza 1 (PCR) Not detected Parainfluenza 2 (PCR) Not detected Parainfluenza 3 (PCR) Not detected Parainfluenza 4 (PCR) Not detected RSV (PCR) Not detected Entero/Rhino (PCR) Not detected Assessment & Plan Assessment & Plan narrative: Patient is being admitted under observation status for njakj-uq-ojrcwol respiratory failure with hypoxia Sunga-kw-lwmuevo respiratory failure with hypoxia - likely in the setting of acute viral illness (RVP + humanmetapneumovirus) w/sequela viral pneumonia and acute COPD exacerbation - blood cx pending - see POC for COPD Viral pneumonia, bilateral, present on admission, active - CXR suggests bilateral pulmonary opacities suggestive of pneumonia. Areas of underlying edema and/or atelectasis cannot be excluded. - Likely viral, evolved from hMPV - pending PCT level (currently on levofloxacin for UTI) - PCT 0.06, repeat level in am - incentive spirometer, Acapella valve COPD w/ acute exacerbation, present on admission, active - Not meeting criteria for a Zithromax son - Received 125 mg of Solu-Medrol in the ED, continue solumedrol 40 mg BID, wean accordingly - RT eval and treat - Supplemental O2, goal SpO2 88-94% Cough, acute, present on admission, active - Guaifenesin w/ codeine and Tessalon Perles prn cough Acute cystitis w/o hematuria, uncomplicated, present on admission, active - levofloxacin, continue x7 days - ua culture pending, to be followed Hyponatremia, acute, present on admission, active - IVF, NS at 75 ml/hr - Repeat BMP in am Hypokalemia, acute, present on admission, active - Received 40 mEq in ED, will give additional 40 mEq KCl - Check Mg - EKG shows NSR, prolonged QT DM2T (non-insulin dependent), chronic condition, present on admission, stable - resume PT regimen of metformin - on steroids - will trend glucose with routine a.m. labs, if elevated then will add SSI Tobacco dependence, chronic condition, present on admission, active - current everyday smoker, nicotine patch - smoking cessation highly encouraged Full code. Designates daughter is surrogate decision maker. Home medications reviewed and reconciled accordingly VTE prophylaxis w/ SCDs, lovenox
[2019-09-21] MEDS: SODIUM CHLORIDE 0.9% 1,000 ML 75 ML IV (23:03)
[2019-09-21] MEDS: NICOTINE 21 MG PATCH TOP (23:03)
[2019-09-22] VITALS (11 sets, daily range): BP systolic 94–107; BP diastolic 54–64; PULSE 68–90; RESP 16–30; TEMP 36.2–36.8; O2SAT 86–94
[2019-09-22] MEDS: POTASSIUM CHLORIDE 20 MEQ TAB 40 MEQ PO (00:28)
[2019-09-22] MEDS: AMITRIPTYLINE 25 MG TABLET 100 MG PO ×2 (00:46→19:55)
[2019-09-22] MEDS: BENZONATATE 100 MG CAPSULE PO (02:24)
[2019-09-22] MEDS: CODEINE/GUAIFENESIN LIQUID 5ML UDC 10 ML PO ×3 (02:24→20:01)
[2019-09-22 07:06] LABS: Add Manual Diff / Slide Review NO; Basophils Absolute Auto 0 /uL (0-100); Basophils Percent Auto 0.5 % (0-2); Eosinophils Absolute Auto 200 /uL (0-450); Eosinophils Percent Auto 1.9 % (2-4); Hematocrit 29.7 % (36-46); Hemoglobin 9.4 g/dL (12.0-16.0); Lymphocytes Absolute Auto 2100 /uL (1100-4500); Lymphocytes Percent Auto 24.7 % (25-40); Mean Corpuscular HGB Conc 31.8 % (30-36); Mean Corpuscular Volume 75.5 fL (80-100); Monocytes Absolute Auto 400 /uL (0-900); Monocytes Percent Auto 4.7 % (3-14); Neutrophils Absolute Auto 5700 /uL (1500-7000); Neutrophils Percent Auto 68.2 % (50-75); Platelet Count 300 X10^3/uL (150-400); Red Blood Cell Count 3.93 X10^6/uL (4.0-5.2); Red Cell Distribution Width 20.4 % (11.6-14.8); White Blood Cell Count 8.3 X10^3/uL (4.5-11.0)
[2019-09-22 07:11] LABS: Alanine Aminotransferase 14 IU/L (<35); Albumin Globulin Ratio 0.8 (1.0-2.8); Alkaline Phosphatase 106 U/L (38-126); Aspartate Aminotransferase 43 IU/L (14-36); BUN Creatinine Ratio 12.5 (6-22); Bilirubin Total 0.4 mg/dL (0.2-1.3); Blood Urea Nitrogen 5 mg/dL (7-17); Carbon Dioxide 28 mmol/L (22-32); Chloride 96 mmol/L (98-107); Estimated Glomerular Filt Rate > 60.0 mL/min (>60); Globulin 3.6 g/dL (1.7-4.1); Glucose 95 mg/dL (70-100); HEMOLYSIS < 15 (0-50); Magnesium 2.2 mg/dL (1.6-2.3); Potassium 3.9 mmol/L (3.4-5.1); Sodium 129 mmol/L (137-145); Total Protein 6.6 g/dL (6.3-8.2)
[2019-09-22 07:31] LABS: Anisocytosis 2+; Poikilocytosis 1+
[2019-09-22 08:01] LABS: Procalcitonin 0.07 ng/mL (<0.5)
[2019-09-22] MEDS: ASPIRIN EC 81 MG TABLET PO (08:41)
[2019-09-22] MEDS: METFORMIN HCL 500 MG TABLET PO ×2 (08:41→17:08)
[2019-09-22] MEDS: DULOXETINE 30 MG CAPSULE 120 MG PO (08:42)
[2019-09-22] MEDS: ENOXAPARIN 40 MG/0.4 ML SYRINGE SUBCUT (08:42)
[2019-09-22] MEDS: NICOTINE 21 MG PATCH TOP (08:42)
[2019-09-22] MEDS: ALBUTEROL/IPRATROPIUM 3 ML AMPUL INH ×3 (08:51→16:36)
[2019-09-22] MEDS: estradioL 0.5 MG TABLET PO (10:27)
[2019-09-22] MEDS: IBUPROFEN 400 MG TABLET PO ×2 (10:28→20:00)
[2019-09-22] MEDS: SODIUM CHLORIDE 0.9% 1,000 ML 75 ML IV (10:29)
--- NOTE | 2019-09-22 11:20 | PC.NURSE ---
Addendum entered by Suly Sharpe R.N. 09/22/19 14:36: RESP/PAIN - some dry, congested but not productive coughing after lunch, 02 sat decr to 84% and then reovers to 93%, given guif w/codeine, discussed medications for chronic back discomfort, reports being comfortable and that the earlier ibuprofen provided good relief, declines tylenol now. Original Note: AM NOTE - awake at bedside shift report, 02 6L 92-93%, mildly labored breathing at rest, incr sob w/speech or activity, occass congested, non productive cough, expir wheezes mid lobe, dim throughout, per pt, uses 2l at home, chronic back discomfort, given ibuprofen as requested, pt assisted to bsc and quickly desat to 82%, incr temporarily to 9L, had rest until recovered to 88% prior to returning to bed, RT changed delivery to humidified high flow cannula.
--- NOTE | 2019-09-22 12:53 | CM.DANOTE ---
DCP: Case received, EMR reviewed and met with patient. Introduced self and role. Was able to obtain information from patient regarding baseline health, activity, and living situation. DCP assessment completed with information currently. DCP assessment completed with information currently available. Patient is a 59 year old female who admitted yesterday evening to the care of the hospitalist team. PCP: Dr. Orellana. Payer: confirmed: Medicare/Medicaid. Patient came to the hospital via ambulance secondary to increased shortness of breath. She currently holds diagnosis of respitory failure. Patient has history of COPD, and pulmonary fibrosis as well. Confirmed with patient that she does have home oxygen. Met with patient in her room. She was sitting up in bed. She is alert and oriented. Confirmed also with patient that she has caregivers in the home through [employer]. Asked her who her [facility] field care coordinator was, and she stated, I can't remember, I think that her name is Violeta. Patient stated that the caregivers help with meal prep and house hold chores. Patient can take her own showers, and has a shower chair at home. Patient stated that she lives [place], and also has a friend next door who helps out. Patient does not drive, and relies on [employer] caregivers. She has a daughter that resides in [place]. P: DCP to continue to follow closely. Did discuss home health with patient, and she thought it might be a good idea, for nursing to come in. Will discuss with hospitalist. Carie Frazier RN/Cardiopulmonary Technologist Chief
[2019-09-22] MEDS: levoFLOXacin 750 MG/150 ML PIGGYBACK 100 MG IV (14:23)
--- NOTE | 2019-09-22 16:27 | PC.NURSE ---
Addendum entered by Tena Chi R.N. 09/22/19 21:50: R.TJamie treatment delivered. Pt now 93% on 6L per hi flow NC. Heplocked as per orders. Waffle cushion provided under buttocks for c/o chronic back pain. Refuses scd's. Instructed pt bedpan use moving forward. Addendum entered by Tena Chi R.N. 09/22/19 21:11: Pt up to commode with [employer] after 02 increased to 7L for movement. Pt desats to 81% and reports difficulty catching breath upon return to bed. Head of bed elevated and pt encouraged to position self upright in bed. Has been increased to 9L per hi flow cannula and 02 level 90% checked on fingers of both hands. Decreased to 6L following rest per hi flow and sats 86-88%. Pt reports more shortness of breath following this toileting. Discussed with JOCELYN Summers who states is okay to have oxygen saturation level 88% on 6L. Also permits bedpan use. RJamieTJamie called to bedside to administer treatment and consult. Addendum entered by Tena Chi R.N. 09/22/19 18:18: R.Roger Summers, has decreased pt's 02 saturation level to 4L. Pt slowly eating evening meal and oxygen monitor alarms repeatedly. 02 sats 88% with eating. Increased to 5L per hi flow cannula with meal and 02 saturation level to 94%. Original Note: Pt uses call light to summon staff for toileting. Per report, pt desats with activity so commode is choice for toileting. Stand by assistance with walker form bed to commode. Pt moves slowly, but is steady on feet. 02 per hi flow cannula 6L and pt desats to 81% while sitting on commode. Is not profoundly dyspneic. Increased 02 to 7L and pt recovers while on commode to 90%. Returned to bed and 02 sats to 96% with rest. Decreased oxygen to 5L per hi flow cannula after consultation with Konrad Grimes. Continuous pulse oximeter in place. Pt denies pain.
--- NOTE | 2019-09-22 17:55 | PM.PN.1 ---
Subjective Subjective Date Patient Seen: 09/22/19 Interval history: Patient reports improvement in shortness of breath and cough. She is less dyspneic getting up to go to the bathroom. Her sputum has been clear. Exam Vital Signs (past 8 hours): - 09/22/19 13:09 09/22/19 13:41 09/22/19 16:36 Temperature 97.2 F L Pulse Rate 74 72 71 Respiratory Rate 18 16 18 Blood Pressure 103/60 Pulse Oximetry 94 92 94 09/22/19 17:00 Temperature 98.2 F Pulse Rate 73 Respiratory Rate 24 Blood Pressure 104/64 Pulse Oximetry 90 L Oxygen Delivery Method High Flow Nasal Cannula Oxygen Flow Rate 2.5 Narrative Exam Narrative: General: Alert very pleasant female in no acute distress Lungs: Breathing nonlabored, diffuse inspiratory crackles bilaterally Heart: Regular rhythm Extremities: Trace pretibial edema Neurological: Nonfocal Objective Labs Result Diagrams: 09/22/19 06:30 09/22/19 06:30 Labs: Laboratory Results - last 24 hr 09/22/19 09/22/19 09/22/19 06:30 06:30 06:30 WBC 8.3 RBC 3.93 L Hgb 9.4 L Hct 29.7 L MCV 75.5 L MCH 24.0 L MCHC 31.8 RDW 20.4 H Plt Count 300 Neut % (Auto) 68.2 Lymph % (Auto) 24.7 L [place] % (Auto) 4.7 Eos % (Auto) 1.9 L Baso % (Auto) 0.5 Neut # (Auto) 5700 Lymph # (Auto) 2100 [place] # (Auto) 400 Eos # (Auto) 200 Baso # (Auto) 0 RBC Morphology Not Reportable Poikilocytosis 1+ H Anisocytosis 2+ H Sodium 129 L Potassium 3.9 Chloride 96 L Carbon Dioxide 28 BUN 5 L Creatinine 0.40 L Estimated GFR > 60.0 BUN/Creatinine Ratio 12.5 Glucose 95 Calcium 8.0 L Magnesium 2.2 Total Bilirubin 0.4 AST 43 H ALT 14 Alkaline Phosphatase 106 Total Protein 6.6 Albumin 3.0 L Globulin 3.6 Albumin/Globulin Ratio 0.8 L Procalcitonin 0.07 Assessment & Plan Assessment & Plan narrative: 1. Acute on chronic hypoxic respiratory failure, present on admission -likely in the setting of acute viral illness (RVP + humanmetapneumovirus) and COPD exacerbation -blood cx negative -improving with IV steroids -current O2 sat 90% on 2.5 L, at home she is usually on 2 L 2. COPD with acute exacerbation, present on admission -sputum clear and she does not need antibiotic -continue Solu-Medrol 40 mg b.i.d. -continue nebulizer treatments with RT -supplemental O2, goal SpO2 88-92% -guaifenesin with codeine and Tessalon Perles as needed cough 3. Pulmonary fibrosis, chronic -chest x-ray findings consistent with severe pulmonary fibrosis, although we do not have comparison x-ray at [facility] -doubt pneumonia with absence of fever, normal WBC, prolactin less than 0.1 x 2 4. Acute cystitis without hematuria, uncomplicated -received 2 doses of Levaquin 750 mg IV which should be adequate to treat UTI -patient had described mild dysuria x1 episode -urine culture growing both gram-positive cocci and gram-negative bacilli 5. Hyponatremia, undetermined chronicity -serum sodium 130-129 relatively mild in nature -Hep-Lock IV fluids 6. Type 2 diabetes, controlled -glucose 98-121, continue metformin 7. Nicotine dependency -nicotine patch Patient with clinical improvement on inpatient hospital care for acute respiratory failure and likely ready for discharge tomorrow Tuesday. Quality VTE Deep Vein Thrombosis/Pulmonary Embolism Present on Admission: No
[2019-09-22] MEDS: SIMVASTATIN 20 MG TABLET PO (19:54)
[2019-09-22] MEDS: PRIMIDONE 50 MG TABLET 450 MG PO (19:56)
[2019-09-22] MEDS: ALBUTEROL 2.5 MG/3 ML NEB (ADULT) INH (21:20)
[2019-09-23] VITALS (14 sets, daily range): BP systolic 86–113; BP diastolic 47–63; PULSE 67–85; RESP 16–22; TEMP 36.2–36.9; O2SAT 86–94
[2019-09-23] MEDS: ALBUTEROL/IPRATROPIUM 3 ML AMPUL INH ×3 (07:02→20:13)
--- NOTE | 2019-09-23 07:24 | RT ---
Pt has COPD and wears home O2 at home, 2 lpm. Still a current heavy smoker. I discussed the possibility of pt attending pulmonary rehab classes. Pt perked up and seemed interested about this. I asked her if she wanted a pamphlet, she declined after I told her the goal of PW staff is to have their patients to be a non/ex smoker or actively trying to quit. She seemed disinterested after the discussion about cigs.
[2019-09-23] MEDS: CODEINE/GUAIFENESIN LIQUID 5ML UDC 10 ML PO ×2 (07:57→21:25)
[2019-09-23] MEDS: estradioL 0.5 MG TABLET PO (07:57)
[2019-09-23] MEDS: METFORMIN HCL 500 MG TABLET PO ×2 (07:57→17:20)
[2019-09-23] MEDS: ENOXAPARIN 40 MG/0.4 ML SYRINGE SUBCUT (09:36)
[2019-09-23] MEDS: DULOXETINE 30 MG CAPSULE 120 MG PO (09:36)
[2019-09-23] MEDS: ASPIRIN EC 81 MG TABLET PO (09:36)
[2019-09-23] MEDS: NICOTINE 21 MG PATCH TOP (09:37)
[2019-09-23] MEDS: SODIUM CHLORIDE 0.9% FLUSH 10 ML IV ×2 (09:37→21:31)
--- NOTE | 2019-09-23 11:01 | PC.NURSE ---
AM NOTE - pt is awake, states she did have coughing spell during night, admin guif/codeine as requested, sob w/speech at rest 6L HF with sat 92-93%, pt asked about getting up to br, discussed first trial with bedpan and when pt assisted with bedpan and underwear her sat decr to 79%, enc stopping and resting and recovering and with 02 incr briefly to 9L, pt sat returned to 88%, then turned back to 6L to maintain 90-92%, coarse and fine crackles keven mid to lower, declines pain medication this am.
[2019-09-23] MEDS: AZITHROMYCIN 500 MG in DEXTROSE 5% IN WATER 250 ML IV (11:56)
--- NOTE | 2019-09-23 11:56 | PM.PN.1 ---
Subjective Subjective Date Patient Seen: 09/23/19 Interval history: Patient is admitted for exacerbation of COPD and pulmonary fibrosis. She seems to be not doing as well as yesterday. She is on 5-6 L nasal cannula to maintain O2 sat around 90. Her sats dropped to the 70s with any exertion. Her cough is stable with clear phlegm. Exam Vital Signs (past 8 hours): - 09/23/19 04:02 09/23/19 07:19 09/23/19 08:00 Temperature 97.4 F L 97.8 F Pulse Rate 74 78 75 Respiratory Rate 22 20 16 Blood Pressure 113/61 96/53 L Pulse Oximetry 86 L 91 92 Oxygen Delivery Method High Flow Nasal Cannula Oxygen Flow Rate 6 Narrative Exam Narrative: General: Alert very pleasant female appearing comfortable resting in bed Lungs: Breathing nonlabored, diffuse inspiratory crackles bilaterally Heart: Regular rhythm Extremities: no edema Neurological: Nonfocal Objective Labs Result Diagrams: 09/22/19 06:30 09/22/19 06:30 Assessment & Plan Assessment & Plan narrative: 1. Acute on chronic hypoxic respiratory failure, present on admission -likely in the setting of acute viral illness (RVP + humanmetapneumovirus), underlying pulmonary fibrosis, and COPD exacerbation -patient is slow to improve with significant O2 requirement verses usual baseline 2 L NC at home. 2. COPD with acute exacerbation, present on admission -sputum clear -continue Solu-Medrol 40 mg b.i.d. -continue nebulizer treatments with RT -supplemental O2, goal SpO2 88-92% -guaifenesin with codeine and Tessalon Perles as needed cough 3. Pulmonary fibrosis, chronic -chest x-ray findings consistent with severe pulmonary fibrosis, although we do not have comparison x-ray at [facility] -doubt pneumonia with absence of fever, normal WBC, procalcitonin less than 0.1 x 2 -Zithromax 500 mg IV q.day being administered for anti-inflammatory affects 4. Acute cystitis without hematuria, uncomplicated -received 2 doses of Levaquin 750 mg IV which should be adequate to treat UTI -patient had described mild dysuria x1 episode -urine culture positive for 100,000 Staph epi and [id number] E coli both pansensitive 5. Hyponatremia, undetermined chronicity -serum sodium 130-129 relatively mild in nature -Hep-Lock IV fluids 6. Type 2 diabetes, controlled -glucose 90-120 range, continue metformin 7. Nicotine dependency -nicotine patch Patient needs ongoing inpatient management of respiratory failure. Quality VTE Deep Vein Thrombosis/Pulmonary Embolism Present on Admission: No
[2019-09-23] MEDS: BENZONATATE 100 MG CAPSULE PO ×3 (12:24→21:25)
[2019-09-23] MEDS: GABAPENTIN 600 MG TABLET 1200 MG PO ×2 (14:16→21:25)
[2019-09-23] MEDS: PREGABALIN 75 MG CAPSULE PO ×2 (14:16→21:25)
[2019-09-23] MEDS: LORazepam 0.5 MG TABLET PO (21:25)
[2019-09-23] MEDS: raNITIdine 150 MG CAPSULE PO (21:25)
[2019-09-23] MEDS: PRIMIDONE 50 MG TABLET 450 MG PO (21:27)
[2019-09-23] MEDS: SIMVASTATIN 20 MG TABLET PO (21:30)
--- NOTE | 2019-09-23 23:30 | PC.NURSE ---
Evening note: Dana resting in bed tonight, on 5L HF NC. Intermittent cough until around 2129 when patient could not stop coughing, continuous pulse ox alarming at 78%, respirations 28/minute. I increased O2 to 8L until she was able to recover. I administered Ativan, Tessalon & Guaif w/codeine cough syrup. Pt slow to recover but able to stop coughing, O2 then turned down to 5L, at rest saturation is 88-94% Patient desaturates to 78-80% with any movement in bed, or use of bedpan. VS stable, borderline low BP's 80's/40's but when rechecked half hour later BP stable. Fall precautions in place, pt instructed to call staff for increased SOB, or any needs/concerns. Remains on droplet isolation.
[2019-09-23] MEDS: AMITRIPTYLINE 25 MG TABLET 100 MG PO (23:39)
[2019-09-24] VITALS (14 sets, daily range): BP systolic 84–135; BP diastolic 52–78; PULSE 64–101; RESP 18–22; TEMP 36.5–37.5; O2SAT 88–97
--- NOTE | 2019-09-24 02:28 | PC.NURSE ---
Addendum entered by Justina Swenson R.N. 09/24/19 04:53: Pt now resting with O2 sats running at 98%. O2 decreased to 6L and O2 sats running at 93%. [facility] Goal of 90-92% O2 sat levels. Original Note: Pt alert and oriented x4. Reports pain with coughing, reduced with cough meds. Shortness of breath with any excerption. Pt desats to low 80s with any movement or coughing. Pt also desating to 83% while sleeping. O2 turned upto 7L high flow NC when unable to get sats up. RT up to view patient at bedside. O2 sats running at 86-88%. After time patient o2 sats now running at 92% on 7L o2 NC. [facility]
[2019-09-24] MEDS: CODEINE/GUAIFENESIN LIQUID 5ML UDC 10 ML PO ×2 (03:28→14:38)
[2019-09-24] MEDS: ALBUTEROL/IPRATROPIUM 3 ML AMPUL INH ×2 (05:50→13:42)
[2019-09-24] MEDS: METFORMIN HCL 500 MG TABLET PO (08:00)
[2019-09-24] MEDS: GABAPENTIN 600 MG TABLET 1200 MG PO ×2 (09:25→14:38)
[2019-09-24] MEDS: ASPIRIN EC 81 MG TABLET PO (09:25)
[2019-09-24] MEDS: ENOXAPARIN 40 MG/0.4 ML SYRINGE SUBCUT (09:25)
[2019-09-24] MEDS: NICOTINE 21 MG PATCH TOP (09:25)
[2019-09-24] MEDS: estradioL 0.5 MG TABLET PO (09:25)
[2019-09-24] MEDS: DULOXETINE 30 MG CAPSULE 120 MG PO (09:25)
[2019-09-24] MEDS: PREGABALIN 75 MG CAPSULE PO ×2 (09:25→14:38)
[2019-09-24] MEDS: SODIUM CHLORIDE 0.9% FLUSH 10 ML IV ×2 (09:26→12:21)
--- NOTE | 2019-09-24 11:18 | CM.DPC ---
Addendum entered by NIGHAT Bach 09/24/19 14:02: ADD: Per MD, pt medically stable to d/c home today with ongoing home oxygen that pt has at baseline. No further needs at this time. BF Original Note: DCP Home planning Per MD, pt seems to be almost back to baseline with oxygen needs and will assess her further for oxygen levels with mobility before determining if pt stable for d/c home today with [employer] Caregivers. SW completed bedside rounding with pt and MD and pt confirms that her preference is to d/c home today and feels almost back to baseline with oxygen. Pt states her caregiver can likely provide transport home today and she has already spoken to her caregivers for additional assist at night for a short bit once she gets home. Pt confirms that she lives in a double wide trailer that her walker works well in and is used to her home oxygen needs and ambulation. Pt states she also has bedside commode at home in case needed after d/c. Plan: SW to follow closely after further MD assess to determine if pt safe for d/c home with [facility] CG today. NIGHAT Bach
--- NOTE | 2019-09-24 11:37 | P.DS_ITS ---
History of Present Illness History of Present Illness Date Patient Seen: 09/24/19 Time Patient Seen: 11:37 Chief complaint: SOB Narrative: As per JOCELYN Layne: The patient is a 59-year-old female with PMH of COPD, pulmonary fibrosis, PAH, chronic respiratory failure with hypoxia / O2 dependence (2L), current 1PPD smoker (w/ 20 PYH of tobacco dependence), DM 2T, neuropathy, essential tremor, HLD, GERD, andxiety Patient presented to the ED on 09/21/2019 out of concern for shortness of breath. Patient reports a 2 week history of not feeling well with associated symptoms of fever, chills, malaise, myalgia, cough, pleurisy, dizziness/lighth eadedness (w/ position change), and dysuria. Reports severe malaise, myalgia, and cough for the 1st week, which has now improved. Patient describes her cough as productive with clear phlegm without increased purulence in the first week, but has now been more of a dry couth. Reports increase use of her home nebulizer treatments, with partial relief of symptoms. Symptoms are exacerbated by exertion. Patient denies chest pain, palpitations, abdominal pain, and gastrointestinal distress. Denies peripheral edema and orthopnea. Patient denies recent travel. Denies exposure to ill contacts. Discharge Providers Provider Date of admission: 09/21/19 19:17 Discharge Date: 09/24/19 Primary care physician: Joesph Orellana MD Consults: 09/21/19 21:57 Consult to Dietitian, Adult Routine Comment: Reason For Exam: 70 lb weight loss (unintentional) 09/21/19 22:00 Consult to Respiratory Therapy Evaluate & Treat Comment: Physician Instructions: Evaluate and treat 09/22/19 16:25 Consult to Dietitian, Adult Routine Comment: Reason For Exam: poor appetite/end stage COPD Discharge provider: Jhonny Mcdaniel DO Summary Hospital Course Discharge Diagnosis: Please see discharge summary by problem below. Hospital Course: 1. Acute on chronic hypoxic respiratory failure, present on admission -likely in the setting of acute viral illness (RVP + humanmetapneumovirus), underlying pulmonary fibrosis, and COPD exacerbation -patient was slow to improve with significant O2 requirement verses usual baseline 2 L NC at home. She improved to near baseline upon discharge and was stable for discharge home on slightly higher O2 requirements. Patient was given return precautions including fever, worsening oxygen requirements or worsening dyspnea. -patient was further treated for possible superimposed bacterial pneumonia with levaquin as this could not be ruled out based on radiographic imaging. She will complete her antibiotic course at home. 2. COPD with acute exacerbation, present on admission, improved -patient was given Solu-Medrol 40 mg b.i.d. while inpatient. Discharged on oral prednisone. 3. Pulmonary fibrosis, chronic -chest x-ray findings as well as physical exam were consistent with severe pulmonary fibrosis, although we do not have comparison x-ray at [facility] 4. Acute cystitis without hematuria, uncomplicated -received Levaquin as noted above, which should be adequate to treat UTI -patient had described mild dysuria x1 episode -urine culture positive for 100,000 Staph epi and [id number] E coli both pansensitive 5. Hyponatremia, undetermined chronicity -serum sodium 130-129 relatively mild in nature, further evaluation can be persued as an outpatient. 6. Type 2 diabetes, controlled -glucose was controlled during her hospital stay. No changes were made to her medications upon discharge. 7. Nicotine dependency -nicotine patch was provided. Encouraged smoking cessation as patient is on home O2 as well. Status at Discharge Overall status at discharge: patient is progressing back to baseline Time Spent with Patient Time spent: Greater than 30 minutes Exam Vital Signs (past 8 hours): - 09/24/19 04:52 09/24/19 05:29 09/24/19 05:35 Temperature 97.7 F Pulse Rate 64 Respiratory Rate 21 Blood Pressure 84/55 L 89/55 L Pulse Oximetry 93 95 92 09/24/19 05:54 09/24/19 05:57 09/24/19 06:46 Temperature Pulse Rate Respiratory Rate Blood Pressure 92/52 L Pulse Oximetry 88 L 93 09/24/19 08:07 09/24/19 09:45 09/24/19 11:34 Temperature 98.0 F 99.1 F Pulse Rate 72 101 H Respiratory Rate 22 18 Blood Pressure 101/56 L 135/73 Pulse Oximetry 89 L 97 92 Oxygen Delivery Method Nasal Cannula Oxygen Flow Rate 3.5 Narrative Exam Narrative: General: Alert very pleasant female appearing comfortable resting in bed Lungs: Breathing nonlabored, diffuse inspiratory crackles bilaterally Heart: Regular rhythm, no m/r/g Extremities: no edema Neurological: alert, appropriately interactive, no focal deficits. Objective Labs Result Diagrams: 09/22/19 06:30 09/22/19 06:30 Discharge Plan Discharge Plan Patient Disposition: Home Health Service Discharge comment: You were admitted to the hospital with an exacerbation of COPD, as well as an viral infection. A superimposed pneumonia cannot be ruled out. You are being discharged on steroids and antibiotics. You should follow- up with her primary care provider and vision teacher as previously scheduled. You should probably have a new pulmonary function test as well as potentially pulmonary rehab if deemed necessary by your vision teacher. Discharge orders & Medications Prescriptions: New prednisone 10 mg tablet 40 mg PO DAILY 4 Days Qty: 16 RF: 0 levofloxacin 750 mg tablet 750 mg PO DAILY 3 Days Qty: 3 RF: 0 Continued metformin 500 mg tablet 500 mg PO BID RF: 0 primidone 50 mg tablet 450 mg PO BEDTIME RF: 0 gabapentin 600 mg tablet 1,200 mg PO TID RF: 0 ibuprofen 800 mg tablet 800 mg PO TID PRN (Reason: pain) RF: 0 ranitidine HCl 300 mg tablet 150 mg PO BEDTIME RF: 0 aspirin 81 mg Tablet,Delayed Release (Dr/Ec) 81 mg PO QAM RF: 0 potassium chloride 20 mEq tablet,ER particles/crystals 20 meq PO QAM RF: 0 lorazepam 0.5 mg tablet 0.5 mg PO DAILY PRN (Reason: breakthrough anxiety) RF: 0 simvastatin 20 mg tablet 20 mg PO BEDTIME RF: 0 furosemide 20 mg tablet 20 mg PO MOWEFR RF: 0 estradiol 0.5 mg Tablet 0.5 mg PO QAM RF: 0 amitriptyline 100 mg tablet 100 mg PO BEDTIME RF: 0 lisinopril 2.5 mg tablet 2.5 mg PO QAM RF: 0 duloxetine 60 mg capsule,delayed release(DR/EC) 120 mg PO QAM RF: 0 pregabalin 75 mg capsule 75 mg PO TID RF: 0 budesonide-formoterol [Symbicort] 160-4.5 mcg/actuation HFA aerosol inhaler 2 inh INHALATION BID RF: 0 Follow up/Referrals: Joesph Orellana MD [Primary Care Provider] - Discharge Health Status Health Concerns: viral respiratory infection COPD exacerbation Diet/Activity/Treatments Diet: Diet as Tolerated Activity: As toleraeted Discharge Data Primary Care Provider: Joesph Orellana Discharges patient from system. Discharge Date/Time: 09/24/19 18:15 Quality VTE Deep Vein Thrombosis/Pulmonary Embolism Present on Admission: No
[2019-09-24] MEDS: AZITHROMYCIN 500 MG in DEXTROSE 5% IN WATER 250 ML IV (12:20)
--- NOTE | 2019-09-24 15:32 | PC.NURSE ---
AM shift. pt AO and receptive to care. Expressing motivation to go home today. On 2L NC at home and currently ranging between 4-6L (humidified) NC. Satting between 88-91 throughout shift. Up to BSC with FWW a couple times with O2 fluctuating between 78-88. pt denied any breathing issues during each episode. At around 1330 pt reported a tightness in her chest. RT called and provided a breathing treatment, pt reported improvements. Administered guafenesin/codeine for mild cough and irritation. around 1400. pt awaiting ride for DC and states her friend will be here around [id number]. Tolerating meals. PIV saline locked.
--- NOTE | 2019-09-24 16:04 | DIET.PN ---
Dietary Progress Note Assessment: Ms. Bardales is a 59 yof with PMHx of COPD, pulmonary fibrosis, PAH, chronic respiratory failure with hypoxia / O2 dependence (2L), current 1PPD smoker, DM 2T, neuropathy, essential tremor, HLD, GERD, anxiety who presented to the ED on 09/21/2019 out of concern for shortness of breath. She reports significant decrease in PO's and weight loss over the last few months. Relates some weight loss related to mental health and depression, however, she reports low income and ability to cover cost of healthier food items. She reports receiving $50/mo in food stamps and lives on social security. Generally shops at the [employer] store for frozen meals such as pizza rolls and canned soups. Report 70lb weight loss x 3 months per med records. HT: 157.48cm WT: 62.5kg UBW: 94kg BMI: 25.2 Labs: Na: 129 L K: 3.0 L BUN: 5 L Cr: 0.40 L MNA: 5 Eric: 20 Nutrition Diagnosis: Severe chronic illness PCM r/t physiological causes increasing nutrient needs due to chronic illness end stage COPD/psychological causes depression aeb energy intake <75% EER > 1mo, weight loss >7.5% in 3 mo, unable to eat sufficient energy/protein r/t depression, finances. Interventions: 1. Provided education on COPD MNT. Discussed calorie and protein needs. Handouts provided. 2. Discussed importance of protein w/ meals and ONS when appetite is low. Provided coupons for Ensure/Ensure Max. Diet Order: Heart Healthy/Cardiac EER: Calories [phone] @ 25-30cal/kg Pro: 80g @ 1.3g/kg Monitoring/Evaluations:PO's, weight, need for ONS if PO's <75%
== END 2019-09-24 18:15 | disposition home or self-care (01) | DRG 189 ==
LOC: ED 18:10 → AC 19:17
PROVIDERS: Nurse Practitioner Gerontology; Admitting Provider Internal Medicine; Emergency Provider Emergency Medicine; PCP Family Medicine; Referring Provider Emergency Medicine; Visit Provider Internal Medicine
DX: J96.21 Acute and chronic respiratory failure with hypoxia (principal); J12.3 Human metapneumovirus pneumonia; J44.1 Chronic obstructive pulmonary disease with (acute) exacerbation; N30.00 Acute cystitis without hematuria; E87.1 Hypo-osmolality and hyponatremia; J44.0 Chronic obstructive pulmonary disease with (acute) lower respiratory infection; Z99.81 Dependence on supplemental oxygen; J84.10 Pulmonary fibrosis, unspecified; E87.6 Hypokalemia; F17.210 Nicotine dependence, cigarettes, uncomplicated; G25.0 Essential tremor; E11.40 Type 2 diabetes mellitus with diabetic neuropathy, unspecified; E78.5 Hyperlipidemia, unspecified; K21.9 Gastro-esophageal reflux disease without esophagitis; F41.9 Anxiety disorder, unspecified; Z79.84 Long term (current) use of oral hypoglycemic drugs
CPT/HCPCS: 36415; 71045; 80053; 81003; 81015; 82962; 83690; 83735; 83880; 84145; 84484; 85025; 85610; 85730; 87040; 87077; 87086; 87147; 87186; 87633; 93005; 94640; 94760; 94762; 96365; 96366; 96375; 99285; J1650; J1956; J2405; J2920; J2930; J7613

== ENCOUNTER 2020-04-08 11:50 | Inpatient (IN) | payer MEDICARE, MEDICAID, SELFPAY ==
[2019-09-21 20:15] VITALS: BMI 23.8
[2020-04-08] VITALS (22 sets, daily range): BP systolic 94–119; BP diastolic 52–61; PULSE 75–96; RESP 5–43; TEMP 37.5–37.7; O2SAT 78–98; BMI 22.8
--- NOTE | 2020-04-08 11:59 | DI.RAD.S_ITS ---
PROCEDURE: XR CHEST 1V INDICATIONS: dyspnea TECHNIQUE: One view of the chest was acquired. COMPARISON: Outside [facility], CR, XR CHEST 2 VIEWS, 05/15/2018, 12:52. [facility], CR, XR CHEST 1V, 09/21/2019, 15:11. FINDINGS: Surgical changes and devices: None. Lungs and pleura: Diffuse interstitial prominence is seen. No pleural effusions or pneumothorax. Mediastinum: The cardiac contours are at the upper limits of normal. The aorta demonstrates calcification and tortuosity. Bones and chest wall: No suspicious bony lesions. Age-appropriate bony degenerative changes are seen. Mild dextroconvex scoliotic curvature is seen. Overlying soft tissues appear unremarkable. IMPRESSION: Interstitial prominence is seen throughout. The interstitial prominence is nonspecific, yet may be related to pulmonary edema. Dictated by: Antony Bates M.D. on 04/08/2020 at 12:44 Approved by: Antony Bates M.D. on 04/08/2020 at 12:45
[2020-04-08] MEDS: SODIUM CHLORIDE 0.9% 1,000 ML 1000 ML IV (12:16)
[2020-04-08] MEDS: methylPREDNISolone 125 MG/2 ML VIAL IV (12:16)
[2020-04-08] MEDS: CEFTRIAXONE 2 GM/50 ML FROZ.PIGGY IV (12:20)
[2020-04-08] MEDS: AZITHROMYCIN 500 MG in DEXTROSE 5% IN WATER 250 ML IV (12:21)
--- NOTE | 2020-04-08 12:31 | PC.NURSE ---
pt c/o sob and cp with inspiration for the past 3 days. symptoms worsening since yesterday, increasing her oxygen use to 3l today. medics arrived pt was in 70's o2 sats they increased her to high flow, improved to 100%, decreased her back down to 6L NC. when she arrived pt 97% on 6L, decreased oxygen to 4L pt remained between 88% and 92%.
[2020-04-08 12:34] LABS: Add Manual Diff / Slide Review NO; Basophils Absolute Auto 100 /uL (0-100); Basophils Percent Auto 0.6 % (0-2); Eosinophils Absolute Auto 100 /uL (0-450); Hematocrit 33.6 % (36-46); Hemoglobin 11.1 g/dL (12.0-16.0); Lymphocytes Absolute Auto 600 /uL (1100-4500); Lymphocytes Percent Auto 5.7 % (25-40); Mean Corpuscular HGB Conc 32.9 % (30-36); Mean Corpuscular Hemoglobin 27.4 PG (26-34); Mean Corpuscular Volume 83.2 fL (80-100); Monocytes Absolute Auto 300 /uL (0-900); Monocytes Percent Auto 2.3 % (3-14); Neutrophils Absolute Auto 9800 /uL (1500-7000); Neutrophils Percent Auto 90.4 % (50-75); Platelet Count 252 X10^3/uL (150-400); Red Blood Cell Count 4.04 X10^6/uL (4.0-5.2); Red Cell Distribution Width 18.1 % (11.6-14.8); White Blood Cell Count 10.9 X10^3/uL (4.5-11.0)
--- NOTE | 2020-04-08 12:42 | ED.SOB ---
HPI - SOB/Dyspnea General Chief Complaint: Shortness of Breath/Dyspnea Stated Complaint: SOB x3 Days Time Seen by Provider: 04/08/20 11:55 Source: patient and EMS Mode of arrival: EMS History of Present Illness HPI Narrative: 60-year-old woman with a history of COPD and hypertension, on 3-4 L of oxygen at home presents with increasing dyspnea, mild nonproductive cough and low-grade fever all getting worse for the past 3 days. Even on her usual 3-4 L at home she has noticed her saturations as low as the mid 70s. She describes some central chest pain/pressure that is worse with deep breathing. Related Data Home Medications Medication Instructions Recorded Confirmed amitriptyline 100 mg PO BEDTIME 09/21/19 09/21/19 aspirin 81 mg PO QAM 09/21/19 09/21/19 budesonide-formoterol [Symbicort] 2 inh INHALATION BID 09/21/19 09/21/19 duloxetine 120 mg PO QAM 09/21/19 09/21/19 estradiol 0.5 mg PO QAM 09/21/19 09/21/19 furosemide 20 mg PO MOWEFR 09/21/19 09/21/19 gabapentin 1,200 mg PO TID 09/21/19 09/21/19 ibuprofen 800 mg PO TID PRN 09/21/19 09/21/19 lisinopril 2.5 mg PO QAM 09/21/19 09/21/19 lorazepam 0.5 mg PO DAILY PRN 09/21/19 09/21/19 metformin 500 mg PO BID 09/21/19 09/21/19 potassium chloride 20 meq PO QAM 09/21/19 09/21/19 pregabalin 75 mg PO TID 09/21/19 09/21/19 primidone 450 mg PO BEDTIME 09/21/19 09/21/19 ranitidine HCl 150 mg PO BEDTIME 09/21/19 09/21/19 simvastatin 20 mg PO BEDTIME 09/21/19 09/21/19 Allergies Allergy/AdvReac Type Severity Reaction Status Date / Time Sulfa (Sulfonamide Allergy Verified 04/08/20 11:53 Antibiotics) Review of Systems Review of Systems Narrative: Pertinent positive and negative findings as per HPI Remainder of review of systems is otherwise unremarkable for ENT: No sore throat, neck pain, ear pain GI: Nausea, vomiting, diarrhea, change in bowel habits, black or bloody stools : Dysuria, hematuria, flank pain MS: Muscle weakness, numbness, joint swelling or warmth Skin: Rashes, nonhealing lesions Neuro: Syncope, dizziness, tingling Patient History Medical History COPD (chronic obstructive pulmonary disease) (Chronic) Diabetes (Acute) Gastroesophageal reflux disease (Acute) Hypertension (Acute) Pulmonary fibrosis (Chronic) Pulmonary hypertension (Chronic) Surgical History History of 2 sections (Chronic) History of total abdominal hysterectomy (Chronic 2002) Family History Mother Hypertension Cancer Psychiatric illness Emphysema/COPD ASHD (arteriosclerotic heart disease) Father Diabetes mellitus Hypertension Social History household members: none Smoking Status: Current every day smoker alcohol intake: former Smoking Status: Current every day smoker Substance Use Type: does not use Exam Narrative Exam Narrative: General: Arrives by ambulance, pale with cool periphery, no acute distress with 100% non-rebreather in place and oxygen saturations at 100%. Able to give a complete. HEENT: Dry mucous membranes, normal sclera with reactive pupils, Neck: No JVD, supple Respiratory: Lungs mild scattered wheezes in the upper lung [place] any question of developing rhonchi in the right axillary area. Full and symmetrical air movement Cardiac: Regular rate and rhythm, 3/6 systolic ejection murmur, no bruits Abdomen: Soft nontender good bowel tones, no flank pain Skin: Finger tips were cool and mildly dusky responding nicely to oxygen levels currently and color is returning Neurologic: Grossly neurologically intact with no obvious asymmetries or abnormalities Extremities: No trauma, well perfused Psych: Cooperative, appropriate insight and affect Initial Vital Signs Initial Vital Signs: Vital Signs Pulse Rate 95 H 04/08/20 11:52 Respiratory Rate 04/08/20 11:52 Pulse Oximetry 89 L 04/08/20 11:52 Course Orders Ordered: ED Orders 04/08/20 11:59 XR chest 1V Stat EKG-12 Lead Stat 04/08/20 12:20 Blood Culture Stat COVID19 -ED/INPAT/OR/L&D Stat Complete Blood Count AUTO DIFF Stat Comprehensive Metabolic Panel Stat D Dimer Stat Lactate (Lactic Acid) Stat Magnesium Stat NT-proBNP (BNP-Adult 18+) Stat Procalcitonin Stat Troponin I Stat 04/08/20 13:09 Consult to Respiratory Therapy Evaluate & Treat 04/08/20 13:38 CT angio chest PE protocol Stat 04/08/20 13:48 Arterial Blood Gas Stat 04/08/20 14:11 COVID19 -ED/INPAT/OR/L&D Stat Respiratory Panel (Film Array) Stat 04/08/20 15:06 Urinalysis and Microscopic Stat Urine Culture Stat Albuterol/Ipratropium (Duoneb) 3 ml INH Q1H PRN PRN Reason: Shortness Of Breath Last Admin: 04/08/20 13:43 Dose: 3 ml Documented by: ANGELLA Discontinued Medications Ceftriaxone Sodium/Dextrose (Rocephin) 2 gm in 50 mls @ 100 mls/hr IV NOW ONE Stop: 04/08/20 12:27 Last Infusion: 04/08/20 13:04 Dose: 0 mls/hr Documented by: Admin: 04/08/20 12:20 Dose: 100 mls/hr Documented by: TAMICA Sodium Chloride (Normal Saline 0.9%) 1,000 mls @ 1,000 mls/hr IV BOLUS ONE Stop: 04/08/20 12:57 Last Infusion: 04/08/20 13:16 Dose: 0 mls/hr Documented by: Admin: 04/08/20 12:16 Dose: 1,000 mls/hr Documented by: TAMICA Azithromycin 500 mg/ Dextrose 250 mls @ 250 mls/hr IV NOW ONE Stop: 04/08/20 11:59 Last Infusion: 04/08/20 13:30 Dose: 0 mls/hr Documented by: Admin: 04/08/20 12:21 Dose: 250 mls/hr Documented by: TAMICA Methylprednisolone (Solu-Medrol 125 Mg Vial) 125 mg IV NOW ONE Stop: 04/08/20 11:59 Last Admin: 04/08/20 12:16 Dose: 125 mg Documented by: TAMICA Vital Signs Vital signs: Vital Signs - 8 hr 04/08/20 11:52 04/08/20 11:53 04/08/20 11:59 Temperature 99.9 F H Pulse Rate 95 H 92 H Respiratory Rate 20 28 H 28 H Blood Pressure 106/54 L Pulse Oximetry 89 L 88 L 90 L 04/08/20 12:30 04/08/20 13:00 04/08/20 13:30 Temperature Pulse Rate 91 H 91 H Respiratory Rate 27 H 25 H Blood Pressure 112/53 L 97/52 L Pulse Oximetry 85 L 78 L 04/08/20 13:34 04/08/20 13:48 04/08/20 14:00 Temperature Pulse Rate 87 87 Respiratory Rate 28 H 28 H Blood Pressure 113/56 L 108/55 L Pulse Oximetry 88 L 95 04/08/20 14:01 04/08/20 14:30 04/08/20 15:00 Temperature Pulse Rate 89 96 H Respiratory Rate 5 L 42 H Blood Pressure Pulse Oximetry 95 94 85 L 04/08/20 15:01 Temperature Pulse Rate 96 H Respiratory Rate 43 H Blood Pressure 119/53 L Pulse Oximetry 80 L MDM - SOB/Dyspnea Medical Records Attestation: I reviewed the patient's medical records. Lab Data Attestation: I reviewed the patient's lab results. Result diagrams: 04/08/20 12:20 04/08/20 12:20 Labs: Lab Results 04/08/20 04/08/20 04/08/20 Range/Units 12:20 12:20 12:20 WBC 10.9 (4.5-11.0) X10^3/uL RBC 4.04 (4.0-5.2) X10^6/uL Hgb 11.1 L (12.0-16.0) g/dL Hct 33.6 L (36-46) % MCV 83.2 (80-100) fL MCH 27.4 (26-34) PG MCHC 32.9 (30-36) % RDW 18.1 H (11.6-14.8) % Plt Count 252 (150-400) X10^3/uL Neut % (Auto) 90.4 H (50-75) % Lymph % (Auto) 5.7 L (25-40) % [place] % (Auto) 2.3 L (3-14) % Eos % (Auto) 1.0 L (2-4) % Baso % (Auto) 0.6 (0-2) % Neut # (Auto) 9800 H (2172-1011) /uL Lymph # (Auto) 600 L (2996-5628) /uL [place] # (Auto) 300 (0-900) /uL Eos # (Auto) 100 (0-450) /uL Baso # (Auto) 100 (0-100) /uL D-Dimer 1748 H (<230) ng/mL ABG pH (7.35-7.45) ABG pCO2 (35-45) mmHg ABG pO2 (80-100) mmHg ABG HCO3 (22-26) mmol/L ABG Total CO2 (21-31) mmol/L ABG O2 Saturation (95-100) % ABG Base Excess (-2-2) mmol/L FiO2 Sodium 125 L (137-145) mmol/L Potassium 3.8 (3.4-5.1) mmol/L Chloride 92 L (98-107) mmol/L Carbon Dioxide 28 (22-32) mmol/L BUN 4 L (7-17) mg/dL Creatinine 0.37 L (0.52-1.04) mg/dL Estimated GFR > 60.0 (>60) mL/min BUN/Creatinine Ratio 10.8 (6-22) Glucose 101 H (70-100) mg/dL Lactate (0.7-2.1) mmol/L Calcium 8.3 L (8.4-10.2) mg/dL Magnesium 1.8 (1.6-2.3) mg/dL Total Bilirubin 0.5 (0.2-1.3) mg/dL AST 49 H (14-36) IU/L ALT 13 (<35) IU/L Alkaline Phosphatase 125 (38-126) U/L Troponin I < 0.012 (0.01-0.034) ng/mL NT-Pro-B Natriuret Pep 704 H (<125) pg/mL Total Protein 6.6 (6.3-8.2) g/dL Albumin 3.6 (3.5-5.0) g/dL Globulin 3.0 (1.7-4.1) g/dL Albumin/Globulin Ratio 1.2 (1.0-2.8) Procalcitonin (<0.5) ng/mL Urine Color Urine Appearance Urine pH (4.5-8.0) Ur Specific [place] (1.000-1.035) Urine Protein (Negative) Urine Glucose (UA) (Negative) g/dL Urine Ketones (NEGATIVE) Urine Occult Blood (Negative) Urine Nitrate (Negative) Urine Bilirubin (NEGATIVE) Urine Urobilinogen (0.2) E.U./dL Ur Leukocyte Esterase (NEGATIVE) Urine RBC (0-5/HPF) Urine WBC (0-5/HPF) Ur Squamous Epith Cells (0-5/HPF) Amorphous Sediment Urine Bacteria (None) Ur Culture Indicated? Chlamy pneumoniae PCR (Not Detect) Adenovirus (PCR) (Not Detect) B.parapertussis DNA PCR (Not Detect) Coronavirus OC43 (PCR) (Not Detect) Coronavirus HKU1 (PCR) (Not Detect) Coronavirus 229E (PCR) (Not Detect) COVID-19 PCR (Negative) Coronavirus NL63 (PCR) (Not Detect) Human Metapneumovir PCR (Not Detect) Influenza Type A (PCR) (Not Detect) Influenza Type B (PCR) (Not Detect) M. pneumoniae (PCR) (Not Detect) Parainfluenza 1 (PCR) (Not Detect) Parainfluenza 2 (PCR) (Not Detect) Parainfluenza 3 (PCR) (Not Detect) Parainfluenza 4 (PCR) (Not Detect) RSV (PCR) (Not Detect) Entero/Rhino (PCR) (Not Detect) 04/08/20 04/08/20 04/08/20 Range/Units 12:20 12:20 12:20 WBC (4.5-11.0) X10^3/uL RBC (4.0-5.2) X10^6/uL Hgb (12.0-16.0) g/dL Hct (36-46) % MCV (80-100) fL MCH (26-34) PG MCHC (30-36) % RDW (11.6-14.8) % Plt Count (150-400) X10^3/uL Neut % (Auto) (50-75) % Lymph % (Auto) (25-40) % [place] % (Auto) (3-14) % Eos % (Auto) (2-4) % Baso % (Auto) (0-2) % Neut # (Auto) (7241-6295) /uL Lymph # (Auto) (7428-1773) /uL [place] # (Auto) (0-900) /uL Eos # (Auto) (0-450) /uL Baso # (Auto) (0-100) /uL D-Dimer (<230) ng/mL ABG pH (7.35-7.45) ABG pCO2 (35-45) mmHg ABG pO2 (80-100) mmHg ABG HCO3 (22-26) mmol/L ABG Total CO2 (21-31) mmol/L ABG O2 Saturation (95-100) % ABG Base Excess (-2-2) mmol/L FiO2 Sodium (137-145) mmol/L Potassium (3.4-5.1) mmol/L Chloride (98-107) mmol/L Carbon Dioxide (22-32) mmol/L BUN (7-17) mg/dL Creatinine (0.52-1.04) mg/dL Estimated GFR (>60) mL/min BUN/Creatinine Ratio (6-22) Glucose (70-100) mg/dL Lactate 1.3 (0.7-2.1) mmol/L Calcium (8.4-10.2) mg/dL Magnesium (1.6-2.3) mg/dL Total Bilirubin (0.2-1.3) mg/dL AST (14-36) IU/L ALT (<35) IU/L Alkaline Phosphatase (38-126) U/L Troponin I (0.01-0.034) ng/mL NT-Pro-B Natriuret Pep (<125) pg/mL Total Protein (6.3-8.2) g/dL Albumin (3.5-5.0) g/dL Globulin (1.7-4.1) g/dL Albumin/Globulin Ratio (1.0-2.8) Procalcitonin < 0.05 (<0.5) ng/mL Urine Color Urine Appearance Urine pH (4.5-8.0) Ur Specific [place] (1.000-1.035) Urine Protein (Negative) Urine Glucose (UA) (Negative) g/dL Urine Ketones (NEGATIVE) Urine Occult Blood (Negative) Urine Nitrate (Negative) Urine Bilirubin (NEGATIVE) Urine Urobilinogen (0.2) E.U./dL Ur Leukocyte Esterase (NEGATIVE) Urine RBC (0-5/HPF) Urine WBC (0-5/HPF) Ur Squamous Epith Cells (0-5/HPF) Amorphous Sediment Urine Bacteria (None) Ur Culture Indicated? Chlamy pneumoniae PCR (Not Detect) Adenovirus (PCR) (Not Detect) B.parapertussis DNA PCR (Not Detect) Coronavirus OC43 (PCR) (Not Detect) Coronavirus HKU1 (PCR) (Not Detect) Coronavirus 229E (PCR) (Not Detect) COVID-19 PCR Negative (Negative) Coronavirus NL63 (PCR) (Not Detect) Human Metapneumovir PCR (Not Detect) Influenza Type A (PCR) (Not Detect) Influenza Type B (PCR) (Not Detect) M. pneumoniae (PCR) (Not Detect) Parainfluenza 1 (PCR) (Not Detect) Parainfluenza 2 (PCR) (Not Detect) Parainfluenza 3 (PCR) (Not Detect) Parainfluenza 4 (PCR) (Not Detect) RSV (PCR) (Not Detect) Entero/Rhino (PCR) (Not Detect) 04/08/20 04/08/20 04/08/20 Range/Units 13:48 14:11 14:11 WBC (4.5-11.0) X10^3/uL RBC (4.0-5.2) X10^6/uL Hgb (12.0-16.0) g/dL Hct (36-46) % MCV (80-100) fL MCH (26-34) PG MCHC (30-36) % RDW (11.6-14.8) % Plt Count (150-400) X10^3/uL Neut % (Auto) (50-75) % Lymph % (Auto) (25-40) % [place] % (Auto) (3-14) % Eos % (Auto) (2-4) % Baso % (Auto) (0-2) % Neut # (Auto) (5271-1024) /uL Lymph # (Auto) (1795-0653) /uL [place] # (Auto) (0-900) /uL Eos # (Auto) (0-450) /uL Baso # (Auto) (0-100) /uL D-Dimer (<230) ng/mL ABG pH 7.48 H (7.35-7.45) ABG pCO2 32.2 L (35-45) mmHg ABG pO2 50 L (80-100) mmHg ABG HCO3 24 (22-26) mmol/L ABG Total CO2 25 (21-31) mmol/L ABG O2 Saturation 88 L (95-100) % ABG Base Excess 0.0 (-2-2) mmol/L FiO2 44 Sodium (137-145) mmol/L Potassium (3.4-5.1) mmol/L Chloride (98-107) mmol/L Carbon Dioxide (22-32) mmol/L BUN (7-17) mg/dL Creatinine (0.52-1.04) mg/dL Estimated GFR (>60) mL/min BUN/Creatinine Ratio (6-22) Glucose (70-100) mg/dL Lactate (0.7-2.1) mmol/L Calcium (8.4-10.2) mg/dL Magnesium (1.6-2.3) mg/dL Total Bilirubin (0.2-1.3) mg/dL AST (14-36) IU/L ALT (<35) IU/L Alkaline Phosphatase (38-126) U/L Troponin I (0.01-0.034) ng/mL NT-Pro-B Natriuret Pep (<125) pg/mL Total Protein (6.3-8.2) g/dL Albumin (3.5-5.0) g/dL Globulin (1.7-4.1) g/dL Albumin/Globulin Ratio (1.0-2.8) Procalcitonin (<0.5) ng/mL Urine Color Urine Appearance Urine pH (4.5-8.0) Ur Specific [place] (1.000-1.035) Urine Protein (Negative) Urine Glucose (UA) (Negative) g/dL Urine Ketones (NEGATIVE) Urine Occult Blood (Negative) Urine Nitrate (Negative) Urine Bilirubin (NEGATIVE) Urine Urobilinogen (0.2) E.U./dL Ur Leukocyte Esterase (NEGATIVE) Urine RBC (0-5/HPF) Urine WBC (0-5/HPF) Ur Squamous Epith Cells (0-5/HPF) Amorphous Sediment Urine Bacteria (None) Ur Culture Indicated? Chlamy pneumoniae PCR Not detected (Not Detect) Adenovirus (PCR) Not detected (Not Detect) B.parapertussis DNA PCR Not detected (Not Detect) Coronavirus OC43 (PCR) Not detected (Not Detect) Coronavirus HKU1 (PCR) Not detected (Not Detect) Coronavirus 229E (PCR) Not detected (Not Detect) COVID-19 PCR Negative (Negative) Coronavirus NL63 (PCR) Not detected (Not Detect) Human Metapneumovir PCR Not detected (Not Detect) Influenza Type A (PCR) Not detected (Not Detect) Influenza Type B (PCR) Not detected (Not Detect) M. pneumoniae (PCR) Not detected (Not Detect) Parainfluenza 1 (PCR) Not detected (Not Detect) Parainfluenza 2 (PCR) Not detected (Not Detect) Parainfluenza 3 (PCR) Not detected (Not Detect) Parainfluenza 4 (PCR) Not detected (Not Detect) RSV (PCR) Not detected (Not Detect) Entero/Rhino (PCR) Not detected (Not Detect) 04/08/20 Range/Units 15:06 WBC (4.5-11.0) X10^3/uL RBC (4.0-5.2) X10^6/uL Hgb (12.0-16.0) g/dL Hct (36-46) % MCV (80-100) fL MCH (26-34) PG MCHC (30-36) % RDW (11.6-14.8) % Plt Count (150-400) X10^3/uL Neut % (Auto) (50-75) % Lymph % (Auto) (25-40) % [place] % (Auto) (3-14) % Eos % (Auto) (2-4) % Baso % (Auto) (0-2) % Neut # (Auto) (9035-2806) /uL Lymph # (Auto) (0395-6146) /uL [place] # (Auto) (0-900) /uL Eos # (Auto) (0-450) /uL Baso # (Auto) (0-100) /uL D-Dimer (<230) ng/mL ABG pH (7.35-7.45) ABG pCO2 (35-45) mmHg ABG pO2 (80-100) mmHg ABG HCO3 (22-26) mmol/L ABG Total CO2 (21-31) mmol/L ABG O2 Saturation (95-100) % ABG Base Excess (-2-2) mmol/L FiO2 Sodium (137-145) mmol/L Potassium (3.4-5.1) mmol/L Chloride (98-107) mmol/L Carbon Dioxide (22-32) mmol/L BUN (7-17) mg/dL Creatinine (0.52-1.04) mg/dL Estimated GFR (>60) mL/min BUN/Creatinine Ratio (6-22) Glucose (70-100) mg/dL Lactate (0.7-2.1) mmol/L Calcium (8.4-10.2) mg/dL Magnesium (1.6-2.3) mg/dL Total Bilirubin (0.2-1.3) mg/dL AST (14-36) IU/L ALT (<35) IU/L Alkaline Phosphatase (38-126) U/L Troponin I (0.01-0.034) ng/mL NT-Pro-B Natriuret Pep (<125) pg/mL Total Protein (6.3-8.2) g/dL Albumin (3.5-5.0) g/dL Globulin (1.7-4.1) g/dL Albumin/Globulin Ratio (1.0-2.8) Procalcitonin (<0.5) ng/mL Urine Color Yellow Urine Appearance Clear Urine pH 7.0 (4.5-8.0) Ur Specific [place] <=1.005 (1.000-1.035) Urine Protein Negative (Negative) Urine Glucose (UA) Negative (Negative) g/dL Urine Ketones Negative (NEGATIVE) Urine Occult Blood Negative (Negative) Urine Nitrate Positive H (Negative) Urine Bilirubin Negative (NEGATIVE) Urine Urobilinogen 0.2 (0.2) E.U./dL Ur Leukocyte Esterase Negative (NEGATIVE) Urine RBC None seen (0-5/HPF) Urine WBC 5-10/hpf H (0-5/HPF) Ur Squamous Epith Cells 0-1 /hpf (0-5/HPF) Amorphous Sediment 1+ Urine Bacteria Many (>30) H (None) Ur Culture Indicated? Specimen cultured Chlamy pneumoniae PCR (Not Detect) Adenovirus (PCR) (Not Detect) B.parapertussis DNA PCR (Not Detect) Coronavirus OC43 (PCR) (Not Detect) Coronavirus HKU1 (PCR) (Not Detect) Coronavirus 229E (PCR) (Not Detect) COVID-19 PCR (Negative) Coronavirus NL63 (PCR) (Not Detect) Human Metapneumovir PCR (Not Detect) Influenza Type A (PCR) (Not Detect) Influenza Type B (PCR) (Not Detect) M. pneumoniae (PCR) (Not Detect) Parainfluenza 1 (PCR) (Not Detect) Parainfluenza 2 (PCR) (Not Detect) Parainfluenza 3 (PCR) (Not Detect) Parainfluenza 4 (PCR) (Not Detect) RSV (PCR) (Not Detect) Entero/Rhino (PCR) (Not Detect) Imaging Data Echocardiogram September 04, 2019: Radiologist's Impression: Interpretation Summary 1) Normal left ventricular size, thickness, wall motion, and systolic function (EF 60-65%). 2) Normal right ventricular size and function. 3) No significant valvular abnormalities. 4) The right ventricular systolic pressure is estimated to be at least 22 mmHg based on an estimated right atrial pressure of 3 mm Hg. 5) No prior Echo available for comparison. CT PE study: Radiologist's Impression: FINDINGS: Image quality: Excellent. Pulmonary arteries: Pulmonary arteries are normal in size, and demonstrate no intraluminal filling defects to suggest central pulmonary embolism. There are widespread ill-defined and severe reticular and patchy consolidative, ground-glass opacity seen bilaterally involving the upper and lower lobes. Thickening of the interlobular septal lines noted in both lung bases. No pleural effusions or pneumothorax. Mediastinum: Heart size is normal, without pericardial effusion. Enlarged bilateral hilar and mediastinal lymph nodes are present. Subcarinal lymph node measures 2.3 x 2.5 cm image 57/5. Thoracic aorta is normal in caliber and enhancement. Esophagus is normal in caliber, without hiatal hernia. Bones and chest wall: No suspicious bony lesions. Ribs and thoracic spine appear intact throughout. Thyroid gland negative . No axillary or supraclavicular adenopathy. Subcentimeter hepatic foci are statistically cysts or hemangiomas, although technically too small to characterize accurately and therefore nonspecific. IMPRESSION: No evidence of pulmonary embolism. Diffuse bilateral upper and lower lobe patchy consolidative and ground-glass opacities with associated subpleural reticulation and interlobular septal thickening. The appearance could reflect chronic interstitial disease (given the appearance of prior chest radiographs) however cannot exclude superimposed and atypical/viral pneumonia, or pulmonary edema . If there is persistent clinical diagnostic uncertainty, continued surveillance with short interval chest radiographs after treatment is recommended. Dictated by: Randy Villavicencio M.D. on 04/08/2020 at 13:31 Chest x-ray: Radiologist's Impression: IMPRESSION: Interstitial prominence is seen throughout. The interstitial prominence is nonspecific, yet may be related to pulmonary edema. Dictated by: Antony Bates M.D. on 04/08/2020 at 12:44 ECG Data Attestation: I personally reviewed and interpreted this ECG as follows: Interpretation: Sinus rhythm at a rate of [address] T wave changes Normal intervals, normal axis MDM Narrative Medical decision making narrative: 60-year-old woman with 3 days of increasing hypoxia and work of breathing without significant wheeze. She believes that it is a COPD exacerbation but was unaware of the fever present. Her initial covered screen is unremarkable. D-dimer is significantly elevated in oxygen requirements are continuing to increase. CT scan is pending. Will check an ABG and increase oxygen as needed. Currently 86% on 6 L nasal cannula next step will be high-flow oxygen. 13:52 continued increasing oxygenation demands. CT scan suggests bilateral upper and lower lobe patchy consolidative ground glass opacities most likely an atypical pneumonia. proBNP is not dramatically elevated and she currently has no clinical signs of right-sided heart failure. Antibiotics for community-acquired pneumonia (ceftriaxone and azithromycin) are given.. Given her increased oxygen capacity needs currently at least 6 L per nasal cannula if not high-flow or non-rebreather will need hospitalization. With initial covid screen negative, she may benefit from BiPAP. Will do a DuoNeb inhaler and re-evaluate. Oxygenating well at 40% with high-flow oxygen saturations in the mid 90s and patient is quite comfortable. No bed capacity at [facility]. Will contact [facility]. - no beds [facility] - no returned call Prov August- will talk with hospitalists and have them call back for admit discussion. discussed with Dr. Agustin, hospitalist who accepts the patient 420 ICU bed is now open at [facility]. Care is reviewed with Dr. Barbosa who will accept the patient. Discharge Plan Departure Patient Disposition: [facility] Clinical Impression: Acute exacerbation of chronic obstructive airways disease, Hypoxia, Acute hyponatremia Community acquired pneumonia Qualifiers: Laterality: unspecified laterality Qualified Code(s): J18.9 - Pneumonia, unspecified organism COPD (chronic obstructive pulmonary disease) Qualifiers: COPD type: COPD with acute exacerbation Qualified Code(s): J44.1 - Chronic obstructive pulmonary disease with (acute) exacerbation Congestive heart failure Qualifiers: Heart failure type: unspecified Heart failure chronicity: acute on chronic Qualified Code(s): I50.9 - Heart failure, unspecified Discharge Date/Time: 04/08/20 16:29 Admit Date/Time: 04/08/20 16:28 Admit Provider: Liana Barbosa
[2020-04-08 12:51] LABS: D Dimer 1748 ng/mL (<230)
[2020-04-08 12:52] LABS: COVID19 -Nasal RAPID Negative (Negative)
[2020-04-08 13:00] LABS: Alanine Aminotransferase 13 IU/L (<35); Albumin 3.6 g/dL (3.5-5.0); Albumin Globulin Ratio 1.2 (1.0-2.8); Alkaline Phosphatase 125 U/L (38-126); Aspartate Aminotransferase 49 IU/L (14-36); BUN Creatinine Ratio 10.8 (6-22); Bilirubin Total 0.5 mg/dL (0.2-1.3); Blood Urea Nitrogen 4 mg/dL (7-17); Calcium 8.3 mg/dL (8.4-10.2); Carbon Dioxide 28 mmol/L (22-32); Chloride 92 mmol/L (98-107); Estimated Glomerular Filt Rate > 60.0 mL/min (>60); Glucose 101 mg/dL (70-100); HEMOLYSIS < 15 (0-50); Lactate (Lactic Acid) 1.3 mmol/L (0.7-2.1); Magnesium 1.8 mg/dL (1.6-2.3); Potassium 3.8 mmol/L (3.4-5.1); Sodium 125 mmol/L (137-145); Total Protein 6.6 g/dL (6.3-8.2)
[2020-04-08 13:07] LABS: NT-proBNP (BNP-Adult 18+) 704 pg/mL (<125); Procalcitonin < 0.05 ng/mL (<0.5)
[2020-04-08 13:22] LABS: Troponin I < 0.012 ng/mL (0.01-0.034)
--- NOTE | 2020-04-08 13:38 | DI.CT.S_ITS ---
PROCEDURE: CT ANGIO CHEST PE PROTOCOL INDICATIONS: worsening dyspnea, elevated d dimer TECHNIQUE: After the administration of intravenous contrast, 2 mm thick sections acquired from the pulmonary apices to the posterior costophrenic angles. 3-dimensional maximum intensity projection (MIP) coronal and sagittal reformats were then acquired through the thorax. For radiation dose reduction, the following was used: automated exposure control, adjustment of mA and/or kV according to patient size. COMPARISON: [facility], CR, XR CHEST 1V, 09/21/2019, 15:11. [facility], CR, XR CHEST 2 VIEWS, 05/15/2018, 12:52. [facility], CR, XR CHEST 1V, 04/08/2020, 12:49. FINDINGS: Image quality: Excellent. Pulmonary arteries: Pulmonary arteries are normal in size, and demonstrate no intraluminal filling defects to suggest central pulmonary embolism. There are widespread ill-defined and severe reticular and patchy consolidative, ground-glass opacity seen bilaterally involving the upper and lower lobes. Thickening of the interlobular septal lines noted in both lung bases. No pleural effusions or pneumothorax. Mediastinum: Heart size is normal, without pericardial effusion. Enlarged bilateral hilar and mediastinal lymph nodes are present. Subcarinal lymph node measures 2.3 x 2.5 cm image 57/5. Thoracic aorta is normal in caliber and enhancement. Esophagus is normal in caliber, without hiatal hernia. Bones and chest wall: No suspicious bony lesions. Ribs and thoracic spine appear intact throughout. Thyroid gland negative . No axillary or supraclavicular adenopathy. Subcentimeter hepatic foci are statistically cysts or hemangiomas, although technically too small to characterize accurately and therefore nonspecific. IMPRESSION: No evidence of pulmonary embolism. Diffuse bilateral upper and lower lobe patchy consolidative and ground-glass opacities with associated subpleural reticulation and interlobular septal thickening. The appearance could reflect chronic interstitial disease (given the appearance of prior chest radiographs) however cannot exclude superimposed and atypical/viral pneumonia, or pulmonary edema . If there is persistent clinical diagnostic uncertainty, continued surveillance with short interval chest radiographs after treatment is recommended. Dictated by: Randy Villavicencio M.D. on 04/08/2020 at 13:31 Approved by: Randy Villavicencio M.D. on 04/08/2020 at 13:42
[2020-04-08] MEDS: ALBUTEROL/IPRATROPIUM 3 ML AMPUL INH ×2 (13:43→19:34)
[2020-04-08 14:18] LABS: HCO3 ABG 24 mmol/L (22-26); PCO2 ABG 32.2 mmHg (35-45); PO2 ABG 50 mmHg (80-100); pH ABG 7.48 (7.35-7.45)
[2020-04-08 14:19] LABS: Fractionated Inspired Oxygen 44; Oxygen Saturation ABG 88 % (95-100); TCO2 ABG 25 mmol/L (21-31)
[2020-04-08 15:07] LABS: Adenovirus Not Detected (Not Detect); Bordetella pertussis Not Detected (Not Detect); Chlamydophila pneumoniae Not Detected (Not Detect); Coronavirus 229E Not Detected (Not Detect); Coronavirus HKU1 Not Detected (Not Detect); Coronavirus NL 63 Not Detected (Not Detect); Coronavirus OC43 Not Detected (Not Detect); Human Metapneumovirus Not Detected (Not Detect); Human Rhinovirus/Enterovirus Not Detected (Not Detect); Influenza A Not Detected (Not Detect); Influenza B Not Detected (Not Detect); Mycoplasma pneumoniae Not Detected (Not Detect); Parainfluenza Virus 1 Not Detected (Not Detect); Parainfluenza Virus 2 Not Detected (Not Detect); Parainfluenza Virus 3 Not Detected (Not Detect); Parainfluenza Virus 4 Not Detected (Not Detect); Respiratory Syncytial Virus Not Detected (Not Detect)
[2020-04-08 15:08] LABS: COVID19 -Nasal RAPID Negative (Negative)
[2020-04-08 15:13] LABS: RBC Urine None Seen (0-5/HPF)
[2020-04-08 15:15] LABS: Appearance Urine UA CLEAR; Bilirubin Urine UA NEGATIVE (NEGATIVE); Color Urine UA YELLOW; Glucose Urine UA NEGATIVE (Negative); Ketones Urine UA NEGATIVE (NEGATIVE); Leukocyte Esterase Urine UA NEGATIVE (NEGATIVE); Nitrite Urine UA POSITIVE (Negative); Occult Blood Urine UA NEGATIVE (Negative); Protein Urine UA NEGATIVE (Negative); Specific Gravity Urine UA <=1.005 (1.000-1.035); Urobilinogen Urine UA 0.2 E.U./dL (0.2)
[2020-04-08 15:24] LABS: Amorphous Sediment Urine 1+; Squamous Epithelial Cell Urine 0-1 /HPF (0-5/HPF); WBC Urine 5-10/HPF (0-5/HPF)
[2020-04-08 15:25] LABS: Bacteria Urine Many (>30); Culture Indicated Urine Specimen Cultured
[2020-04-08] MEDS: methylPREDNISolone 125 MG/2 ML VIAL 60 MG IV (19:30)
--- NOTE | 2020-04-08 19:41 | P.HP_ITS ---
History of Present Illness History of Present Illness Date Patient Seen: 04/08/20 Chief complaint: SOB x3 Days Narrative: Patient is a 60-year-old female with a history of COPD, chronic resp iratory failure on 2-3 L at home, ongoing smoking, type 2 diabetes, pulmonary fibrosis, hypertension, and pulmonary hypertension. Patient was in her usual state of health until 3 days ago. At that time the patient noted increasing shortness of breath. She was using her albuterol Atrovent inhaler multiple times without significant relief. She denies any wheezing. However she had shortness of breath with minimal activity. She had a nonproductive cough. Patient also reports low-grade fever. She was feeling fatigued and weak. She presented to the hospital for further evaluation. In the emergency department the patient was tested for coded twice which was negative. Chest x-ray showed a n official interstitial infiltrates. Chest CT revealed no evidence of PE, bilateral interstitial infiltrates, suggesting atypical pneumonia. Patient typically requires 3 L of oxygen. However she is on high-flow oxygen at this time to maintain her O2 sat. She she does report chest pain. He relates this to coughing. She has had no hemoptysis. She has had low-grade fever to 101. No runny nose or headaches. She denies any nausea vomiting or diarrhea. She reports swelling in the right lower extremity. Patient is admitted to the hospital for further treatment and evaluation of acute on chronic respiratory failure. Patient was hospitalized in September of this year. She states that her current symptoms are similar to her prior admission in September of 2019. Patient History Medical History COPD (chronic obstructive pulmonary disease) (Chronic) Diabetes (Acute) Gastroesophageal reflux disease (Acute) Hypertension (Acute) Pulmonary fibrosis (Chronic) Pulmonary hypertension (Chronic) Surgical History History of 2 sections (Chronic) History of total abdominal hysterectomy (Chronic 2002) Family & Social History Family History Mother Hypertension Cancer Psychiatric illness Emphysema/COPD ASHD (arteriosclerotic heart disease) Father Diabetes mellitus Hypertension Social History: household members none Prior Living Arrangements Mobile home Safety & Behavioral: Feels Safe in Current Yes Environment Been Physically Hurt or No Threatened By a Person Suicidal Ideation Description None Suicide Plan Description No Plan Tobacco & Substance use: Tobacco type cigarettes Smoking Status Current every day smoker Smoking packs per day 1 alcohol intake former Substance Use Type does not use Meds Home Medications and Allergies Home Medications Medication Instructions Recorded Confirmed Type amitriptyline 100 mg PO BEDTIME 09/21/19 04/08/20 History aspirin 81 mg PO QAM 09/21/19 04/08/20 History budesonide-formoterol [Symbicort] 2 inh INHALATION BID 09/21/19 04/08/20 History duloxetine 120 mg PO QAM 09/21/19 04/08/20 History estradiol 0.5 mg PO QAM 09/21/19 04/08/20 History furosemide 20 mg PO MOWEFR 09/21/19 04/08/20 History gabapentin 1,200 mg PO TID 09/21/19 04/08/20 History ibuprofen 800 mg PO TID PRN 09/21/19 04/08/20 History lisinopril 2.5 mg PO QAM 09/21/19 04/08/20 History lorazepam 0.5 mg PO DAILY PRN 09/21/19 04/08/20 History metformin 500 mg PO BID 09/21/19 04/08/20 History potassium chloride 20 meq PO QAM 09/21/19 04/08/20 History pregabalin 75 mg PO TID 09/21/19 04/08/20 History primidone 450 mg PO BEDTIME 09/21/19 04/08/20 History simvastatin 20 mg PO BEDTIME 09/21/19 04/08/20 History Allergies Allergy/AdvReac Type Severity Reaction Status Date / Time Sulfa (Sulfonamide Allergy Verified 04/08/20 11:53 Antibiotics) Review of Systems Review of Systems ROS: Yes All systems reviewed with the patient and are negative except as otherwise documented Exam Vital Signs (past 8 hours): - 04/08/20 11:52 04/08/20 11:53 04/08/20 11:59 Temperature 99.9 F H Pulse Rate 95 H 92 H Respiratory Rate 20 28 H 28 H Blood Pressure 106/54 L Pulse Oximetry 89 L 88 L 90 L 04/08/20 12:30 04/08/20 13:00 04/08/20 13:30 Temperature Pulse Rate 91 H 91 H Respiratory Rate 27 H 25 H Blood Pressure 112/53 L 97/52 L Pulse Oximetry 85 L 78 L 04/08/20 13:34 04/08/20 13:48 04/08/20 14:00 Temperature Pulse Rate 87 87 Respiratory Rate 28 H 28 H Blood Pressure 113/56 L 108/55 L Pulse Oximetry 88 L 95 04/08/20 14:01 04/08/20 14:30 04/08/20 15:00 Temperature Pulse Rate 89 96 H Respiratory Rate 5 L 42 H Blood Pressure Pulse Oximetry 95 94 85 L 04/08/20 15:01 04/08/20 16:30 04/08/20 17:08 Temperature 99.9 F H Pulse Rate 96 H 85 89 Respiratory Rate 43 H 29 H 24 Blood Pressure 119/53 L 114/61 Pulse Oximetry 80 L 94 94 04/08/20 18:03 Temperature Pulse Rate Respiratory Rate Blood Pressure Pulse Oximetry 95 Fraction of Inspired Oxygen 45 Oxygen Delivery Method Heated High Flow Oxygen Flow Rate 40 Narrative Exam Narrative: Ill-appearing frail female lying in bed short of breath HEENT: Normocephalic atraumatic, extraocular muscles are intact, oropharynx is clear, neck is supple, Lungs: Decreased breath sounds bibasilar Velcro crackles 1[address] bilaterally Cardiac exam: Regular rate and rhythm normal S1-S2 with a 2/6 systolic ejection Abdomen: Soft nontender nondistended no evidence of hepatosplenomegaly Extremities: Trace edema Neuro exam: Nonfocal Skin exam: No rashes skin is warm and dry Psychiatric exam: Patient is awake alert and appropriate, no delusions, no hallucinations, no confusion Objective Labs Result Diagrams: 04/08/20 12:20 04/08/20 12:20 Labs: Laboratory Results - last 24 hr 04/08/20 04/08/20 04/08/20 12:20 12:20 12:20 WBC 10.9 RBC 4.04 Hgb 11.1 L Hct 33.6 L MCV 83.2 MCH 27.4 MCHC 32.9 RDW 18.1 H Plt Count 252 Neut % (Auto) 90.4 H Lymph % (Auto) 5.7 L Centre % (Auto) 2.3 L Eos % (Auto) 1.0 L Baso % (Auto) 0.6 Neut # (Auto) 9800 H Lymph # (Auto) 600 L Centre # (Auto) 300 Eos # (Auto) 100 Baso # (Auto) 100 D-Dimer 1748 H ABG pH ABG pCO2 ABG pO2 ABG HCO3 ABG Total CO2 ABG O2 Saturation ABG Base Excess FiO2 Sodium 125 L Potassium 3.8 Chloride 92 L Carbon Dioxide 28 BUN 4 L Creatinine 0.37 L Estimated GFR > 60.0 BUN/Creatinine Ratio 10.8 Glucose 101 H Lactate Calcium 8.3 L Magnesium 1.8 Total Bilirubin 0.5 AST 49 H ALT 13 Alkaline Phosphatase 125 Troponin I < 0.012 NT-Pro-B Natriuret Pep 704 H Total Protein 6.6 Albumin 3.6 Globulin 3.0 Albumin/Globulin Ratio 1.2 Procalcitonin Urine Color Urine Appearance Urine pH Ur Specific [place] Urine Protein Urine Glucose (UA) Urine Ketones Urine Occult Blood Urine Nitrate Urine Bilirubin Urine Urobilinogen Ur Leukocyte Esterase Urine RBC Urine WBC Ur Squamous Epith Cells Amorphous Sediment Urine Bacteria Ur Culture Indicated? Chlamy pneumoniae PCR Adenovirus (PCR) B.parapertussis DNA PCR Coronavirus OC43 (PCR) Coronavirus HKU1 (PCR) Coronavirus 229E (PCR) COVID-19 PCR Coronavirus NL63 (PCR) Human Metapneumovir PCR Influenza Type A (PCR) Influenza Type B (PCR) M. pneumoniae (PCR) Parainfluenza 1 (PCR) Parainfluenza 2 (PCR) Parainfluenza 3 (PCR) Parainfluenza 4 (PCR) RSV (PCR) Entero/Rhino (PCR) 04/08/20 04/08/20 04/08/20 12:20 12:20 12:20 WBC RBC Hgb Hct MCV MCH MCHC RDW Plt Count Neut % (Auto) Lymph % (Auto) Centre % (Auto) Eos % (Auto) Baso % (Auto) Neut # (Auto) Lymph # (Auto) Centre # (Auto) Eos # (Auto) Baso # (Auto) D-Dimer ABG pH ABG pCO2 ABG pO2 ABG HCO3 ABG Total CO2 ABG O2 Saturation ABG Base Excess FiO2 Sodium Potassium Chloride Carbon Dioxide BUN Creatinine Estimated GFR BUN/Creatinine Ratio Glucose Lactate 1.3 Calcium Magnesium Total Bilirubin AST ALT Alkaline Phosphatase Troponin I NT-Pro-B Natriuret Pep Total Protein Albumin Globulin Albumin/Globulin Ratio Procalcitonin < 0.05 Urine Color Urine Appearance Urine pH Ur Specific [place] Urine Protein Urine Glucose (UA) Urine Ketones Urine Occult Blood Urine Nitrate Urine Bilirubin Urine Urobilinogen Ur Leukocyte Esterase Urine RBC Urine WBC Ur Squamous Epith Cells Amorphous Sediment Urine Bacteria Ur Culture Indicated? Chlamy pneumoniae PCR Adenovirus (PCR) B.parapertussis DNA PCR Coronavirus OC43 (PCR) Coronavirus HKU1 (PCR) Coronavirus 229E (PCR) COVID-19 PCR Negative Coronavirus NL63 (PCR) Human Metapneumovir PCR Influenza Type A (PCR) Influenza Type B (PCR) M. pneumoniae (PCR) Parainfluenza 1 (PCR) Parainfluenza 2 (PCR) Parainfluenza 3 (PCR) Parainfluenza 4 (PCR) RSV (PCR) Entero/Rhino (PCR) 04/08/20 04/08/20 04/08/20 13:48 14:11 14:11 WBC RBC Hgb Hct MCV MCH MCHC RDW Plt Count Neut % (Auto) Lymph % (Auto) Centre % (Auto) Eos % (Auto) Baso % (Auto) Neut # (Auto) Lymph # (Auto) Centre # (Auto) Eos # (Auto) Baso # (Auto) D-Dimer ABG pH 7.48 H ABG pCO2 32.2 L ABG pO2 50 L ABG HCO3 24 ABG Total CO2 25 ABG O2 Saturation 88 L ABG Base Excess 0.0 FiO2 44 Sodium Potassium Chloride Carbon Dioxide BUN Creatinine Estimated GFR BUN/Creatinine Ratio Glucose Lactate Calcium Magnesium Total Bilirubin AST ALT Alkaline Phosphatase Troponin I NT-Pro-B Natriuret Pep Total Protein Albumin Globulin Albumin/Globulin Ratio Procalcitonin Urine Color Urine Appearance Urine pH Ur Specific [place] Urine Protein Urine Glucose (UA) Urine Ketones Urine Occult Blood Urine Nitrate Urine Bilirubin Urine Urobilinogen Ur Leukocyte Esterase Urine RBC Urine WBC Ur Squamous Epith Cells Amorphous Sediment Urine Bacteria Ur Culture Indicated? Chlamy pneumoniae PCR Not detected Adenovirus (PCR) Not detected B.parapertussis DNA PCR Not detected Coronavirus OC43 (PCR) Not detected Coronavirus HKU1 (PCR) Not detected Coronavirus 229E (PCR) Not detected COVID-19 PCR Negative Coronavirus NL63 (PCR) Not detected Human Metapneumovir PCR Not detected Influenza Type A (PCR) Not detected Influenza Type B (PCR) Not detected M. pneumoniae (PCR) Not detected Parainfluenza 1 (PCR) Not detected Parainfluenza 2 (PCR) Not detected Parainfluenza 3 (PCR) Not detected Parainfluenza 4 (PCR) Not detected RSV (PCR) Not detected Entero/Rhino (PCR) Not detected 04/08/20 15:06 WBC RBC Hgb Hct MCV MCH MCHC RDW Plt Count Neut % (Auto) Lymph % (Auto) Centre % (Auto) Eos % (Auto) Baso % (Auto) Neut # (Auto) Lymph # (Auto) Centre # (Auto) Eos # (Auto) Baso # (Auto) D-Dimer ABG pH ABG pCO2 ABG pO2 ABG HCO3 ABG Total CO2 ABG O2 Saturation ABG Base Excess FiO2 Sodium Potassium Chloride Carbon Dioxide BUN Creatinine Estimated GFR BUN/Creatinine Ratio Glucose Lactate Calcium Magnesium Total Bilirubin AST ALT Alkaline Phosphatase Troponin I NT-Pro-B Natriuret Pep Total Protein Albumin Globulin Albumin/Globulin Ratio Procalcitonin Urine Color Yellow Urine Appearance Clear Urine pH 7.0 Ur Specific [place] <=1.005 Urine Protein Negative Urine Glucose (UA) Negative Urine Ketones Negative Urine Occult Blood Negative Urine Nitrate Positive H Urine Bilirubin Negative Urine Urobilinogen 0.2 Ur Leukocyte Esterase Negative Urine RBC None seen Urine WBC 5-10/hpf H Ur Squamous Epith Cells 0-1 /hpf Amorphous Sediment 1+ Urine Bacteria Many (>30) H Ur Culture Indicated? Specimen cultured Chlamy pneumoniae PCR Adenovirus (PCR) B.parapertussis DNA PCR Coronavirus OC43 (PCR) Coronavirus HKU1 (PCR) Coronavirus 229E (PCR) COVID-19 PCR Coronavirus NL63 (PCR) Human Metapneumovir PCR Influenza Type A (PCR) Influenza Type B (PCR) M. pneumoniae (PCR) Parainfluenza 1 (PCR) Parainfluenza 2 (PCR) Parainfluenza 3 (PCR) Parainfluenza 4 (PCR) RSV (PCR) Entero/Rhino (PCR) Assessment & Plan Assessment & Plan narrative: Impression 1. 60-year-old female with acute on chronic respiratory failure likely multifactorial -patient with known underlying pulmonary fibrosis -given fever, abnormal x-ray, abnormal CT possibility atypical infection is present CT shows interstitial -patient tested negative for Covid-19 x2, respiratory panel x2 is negative -the patient continues to smoke a pack per day -patient with known underlying COPD -will continue IV Solu-Medrol 60 Q 8, continue albuterol ipratropium nebulized, steroid inhaler -will start empiric antibiotics with ceftriaxone and azithromycin -will continue high-flow oxygen 2. Probable urinary tract infection, present on admission -UA positive for leukocyte esterase, bacteria, and wbc's -continue antibiotics with ceftriaxone azithromycin -will narrow antibiotic, based on culture findings 3. Type 2 diabetes -will discontinue metformin at this time -will start correctional insulin, anticipate higher blood sugars given steroids, stress of infection and the lack usual anti diabetic medication -consider basal insulin if blood sugars become significantly elevated 4. Hyperlipidemia -continue simvastatin 5. Diabetic polyneuropathy -continue amitriptyline, gabapentin, and Lyrica 6. Chronic pain -continue duloxetine, and ibuprofen Patient will be placed on DVT prophylaxis, she is a full code, The patient is admitted to inpatient status given significant hypoxemia a need for intensive care
[2020-04-08] MEDS: AMITRIPTYLINE 25 MG TABLET 100 MG PO (21:26)
[2020-04-08] MEDS: PREGABALIN 75 MG CAPSULE PO (21:26)
[2020-04-08] MEDS: GABAPENTIN 600 MG TABLET 1200 MG PO (21:26)
[2020-04-08] MEDS: LORazepam 0.5 MG TABLET PO (21:26)
[2020-04-08] MEDS: SIMVASTATIN 20 MG TABLET PO (21:26)
[2020-04-08] MEDS: PRIMIDONE 50 MG TABLET PO (21:26)
[2020-04-09] VITALS (25 sets, daily range): BP systolic 89–110; BP diastolic 50–60; PULSE 71–93; RESP 15–38; TEMP 37.2–38.1; O2SAT 82–100
[2020-04-09] MEDS: ALBUTEROL/IPRATROPIUM 3 ML AMPUL INH ×7 (00:01→18:59)
[2020-04-09] MEDS: QUETIAPINE 25 MG TABLET 100 MG PO ×2 (00:38→21:00)
[2020-04-09] MEDS: MORPHINE 2 MG/ML INJ IV ×2 (00:38→22:21)
[2020-04-09] MEDS: LORazepam 0.5 MG TABLET PO ×3 (02:22→17:34)
--- NOTE | 2020-04-09 03:00 | PC.NURSE ---
Evening shift note Pt arrived via gurney from ED, A/O x3, VSS, High flow nasal canula 30L at 40%. Pt able to scoot over to bed, attached to monitors, oriented to room and call light system. Admission assessment, skin assessment and medication rec completed. Pt able to make needs known and use call light appropriately. Bed low and locked, call light within reach, will continue to monitor.
[2020-04-09] MEDS: methylPREDNISolone 125 MG/2 ML VIAL 60 MG IV ×2 (04:23→21:23)
[2020-04-09 04:54] LABS: Add Manual Diff / Slide Review NO; Basophils Absolute Auto 0 /uL (0-100); Basophils Percent Auto 0.1 % (0-2); Eosinophils Absolute Auto 0 /uL (0-450); Hematocrit 28.2 % (36-46); Hemoglobin 9.4 g/dL (12.0-16.0); Lymphocytes Absolute Auto 900 /uL (1100-4500); Lymphocytes Percent Auto 9.5 % (25-40); Mean Corpuscular HGB Conc 33.4 % (30-36); Mean Corpuscular Hemoglobin 27.6 PG (26-34); Mean Corpuscular Volume 82.9 fL (80-100); Monocytes Absolute Auto 400 /uL (0-900); Monocytes Percent Auto 3.9 % (3-14); Neutrophils Absolute Auto 7900 /uL (1500-7000); Neutrophils Percent Auto 86.5 % (50-75); Platelet Count 220 X10^3/uL (150-400); White Blood Cell Count 9.1 X10^3/uL (4.5-11.0)
[2020-04-09 05:03] LABS: BUN Creatinine Ratio 18.2 (6-22); Blood Urea Nitrogen 6 mg/dL (7-17); Carbon Dioxide 27 mmol/L (22-32); Chloride 94 mmol/L (98-107); Estimated Glomerular Filt Rate > 60.0 mL/min (>60); Glucose 124 mg/dL (70-100); HEMOLYSIS < 15 (0-50); Potassium 3.6 mmol/L (3.4-5.1); Sodium 123 mmol/L (137-145)
[2020-04-09] MEDS: BUDESONIDE 0.5 MG/2 ML NEB INH ×2 (06:10→21:23)
[2020-04-09 08:39] LABS: Procalcitonin < 0.05 ng/mL (<0.5)
[2020-04-09] MEDS: DULOXETINE 30 MG CAPSULE 120 MG PO (09:46)
[2020-04-09] MEDS: NICOTINE 21 MG PATCH TOP (09:47)
[2020-04-09] MEDS: PREGABALIN 75 MG CAPSULE PO ×3 (09:47→21:22)
[2020-04-09] MEDS: GABAPENTIN 600 MG TABLET 1200 MG PO ×3 (09:47→21:22)
[2020-04-09] MEDS: POTASSIUM CHLORIDE 20 MEQ TAB 40 MEQ PO (09:47)
[2020-04-09] MEDS: ENOXAPARIN 40 MG/0.4 ML SYRINGE SUBCUT (09:47)
[2020-04-09] MEDS: OXcarbazepine 150 MG TABLET 300 MG PO (09:54)
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
[2020-04-09 10:38] LABS: Fractionated Inspired Oxygen 45; HCO3 ABG 26 mmol/L (22-26); Oxygen Saturation ABG 92 % (95-100); PCO2 ABG 34.6 mmHg (35-45); PO2 ABG 59 mmHg (80-100); TCO2 ABG 27 mmol/L (21-31); pH ABG 7.48 (7.35-7.45)
[2020-04-09] MEDS: CEFTRIAXONE 2 GM/50 ML FROZ.PIGGY IV (12:00)
[2020-04-09] MEDS: AZITHROMYCIN 500 MG in DEXTROSE 5% IN WATER 250 ML IV (12:58)
[2020-04-09] MEDS: INSULIN ASPART 100 UNIT/ML INSULN PEN SUBCUT (12:59)
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
[2020-04-09] MEDS: ACETAMINOPHEN 325 MG TABLET 650 MG PO (19:25)
[2020-04-09] MEDS: SIMVASTATIN 20 MG TABLET PO (21:22)
[2020-04-09] MEDS: AMITRIPTYLINE 25 MG TABLET 100 MG PO (21:22)
[2020-04-09] MEDS: PRIMIDONE 50 MG TABLET PO (21:22)
[2020-04-09] MEDS: guaiFENesin ER 600 MG TAB 1200 MG PO (21:23)
[2020-04-10] VITALS (15 sets, daily range): BP systolic 97–123; BP diastolic 53–67; PULSE 70–88; RESP 20–30; TEMP 36.5–37.1; O2SAT 65–100
[2020-04-10] MEDS: ALBUTEROL/IPRATROPIUM 3 ML AMPUL INH ×6 (03:54→19:57)
[2020-04-10 04:41] LABS: Add Manual Diff / Slide Review NO; Basophils Absolute Auto 0 /uL (0-100); Basophils Percent Auto 0.3 % (0-2); Eosinophils Absolute Auto 0 /uL (0-450); Hematocrit 31.4 % (36-46); Hemoglobin 10.4 g/dL (12.0-16.0); Lymphocytes Absolute Auto 700 /uL (1100-4500); Lymphocytes Percent Auto 6.7 % (25-40); Mean Corpuscular HGB Conc 33.1 % (30-36); Mean Corpuscular Hemoglobin 27.4 PG (26-34); Mean Corpuscular Volume 82.9 fL (80-100); Monocytes Absolute Auto 200 /uL (0-900); Monocytes Percent Auto 2.2 % (3-14); Neutrophils Absolute Auto 10100 /uL (1500-7000); Neutrophils Percent Auto 90.8 % (50-75); Platelet Count 260 X10^3/uL (150-400); Red Blood Cell Count 3.79 X10^6/uL (4.0-5.2); Red Cell Distribution Width 18.3 % (11.6-14.8); White Blood Cell Count 11.2 X10^3/uL (4.5-11.0)
--- NOTE | 2020-04-10 04:42 | PC.NURSE ---
Patient with episode of respiratory distress, following ambulation to bedside commode. Patient requested for RN to turn the oxygen up. RT notified for assistance. Patient desaturated into the 60's. Patient ashen, lowe with circumoral cyanosis. JOCELYN Coronel notified and present at bedside. Patient then placed on 100% FI02 on heated high flow. Patient received neb treatment and stated she felt better. Patient remains in bed, on 100% FI02 heated high flow oxygen.
[2020-04-10 04:52] LABS: BUN Creatinine Ratio 16.7 (6-22); Blood Urea Nitrogen 6 mg/dL (7-17); Calcium 8.4 mg/dL (8.4-10.2); Carbon Dioxide 28 mmol/L (22-32); Chloride 95 mmol/L (98-107); Estimated Glomerular Filt Rate > 60.0 mL/min (>60); Glucose 152 mg/dL (70-100); HEMOLYSIS < 15 (0-50); Magnesium 2.1 mg/dL (1.6-2.3); Potassium 3.9 mmol/L (3.4-5.1); Sodium 128 mmol/L (137-145)
[2020-04-10 05:07] LABS: Procalcitonin < 0.05 ng/mL (<0.5)
[2020-04-10 05:47] LABS: TSH w/ Reflex to FT4 1.96 uIU/mL (0.47-4.68)
[2020-04-10] MEDS: ALBUTEROL 2.5 MG/3 ML NEB (ADULT) INH (05:48)
[2020-04-10] MEDS: LORazepam 0.5 MG TABLET PO (06:18)
[2020-04-10] MEDS: INSULIN ASPART 100 UNIT/ML INSULN PEN SUBCUT ×2 (06:24→16:51)
--- NOTE | 2020-04-10 07:25 | DI.RAD.S_ITS ---
PROCEDURE: XR CHEST 1V INDICATIONS: Hypoxia TECHNIQUE: One view of the chest was acquired. COMPARISON: [facility], CT, CT ANGIO CHEST PE PROTOCOL, 04/08/2020, 13:15. [facility], CR, XR CHEST 2 VIEWS, 05/15/2018, 12:52. [facility], CR, XR CHEST 1V, 04/08/2020, 12:49. [facility], CR, XR CHEST 1V, 09/21/2019, 15:11. FINDINGS: Surgical changes and devices: None. Lungs and pleura: Lungs are abnormal with a generalized alveolar infiltration pattern that is virtually identical to that present 2 days ago and also 09/21/19. No pleural effusions or pneumothorax. Mediastinum: Mediastinal contours appear normal. Heart size is normal. Bones and chest wall: No suspicious bony lesions. Overlying soft tissues appear unremarkable. IMPRESSION: Generalized alveolitis pattern, etiology uncertain. Piano Maker consultation is recommended if this has not yet been obtained. As noted, the abnormality is virtually identical that to that present 09/21/19. This also appears to have been present to a slightly lesser degree on a comparison two-view chest from 05/15/18. Dictated by: Ramez Childress M.D. on 04/10/2020 at 9:13 Approved by: Ramez Childress M.D. on 04/10/2020 at 9:16
[2020-04-10] MEDS: methylPREDNISolone 125 MG/2 ML VIAL IV (07:49)
[2020-04-10] MEDS: MORPHINE 2 MG/ML INJ IV ×3 (07:50→21:26)
[2020-04-10] MEDS: LORazepam 2 MG/ML INJ 0.5 MG IV ×2 (08:15→20:12)
[2020-04-10 08:32] LABS: Hemoglobin A1C% w Est Avg Glu 5.3 % (4.0-6.0)
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
[2020-04-10] MEDS: BUDESONIDE 0.5 MG/2 ML NEB INH ×2 (09:15→19:57)
[2020-04-10 09:27] LABS: Fractionated Inspired Oxygen 45; HCO3 ABG 29 mmol/L (22-26); Oxygen Saturation ABG 90 % (95-100); PCO2 ABG 37.7 mmHg (35-45); PO2 ABG 55 mmHg (80-100); TCO2 ABG 30 mmol/L (21-31); pH ABG 7.49 (7.35-7.45)
[2020-04-10] MEDS: GABAPENTIN 600 MG TABLET 1200 MG PO ×3 (09:30→20:01)
[2020-04-10] MEDS: PREGABALIN 75 MG CAPSULE PO ×3 (09:30→20:03)
[2020-04-10] MEDS: lisinopriL 5 MG TABLET 2.5 MG PO (09:30)
[2020-04-10] MEDS: OXcarbazepine 150 MG TABLET 300 MG PO (09:30)
[2020-04-10] MEDS: DULOXETINE 30 MG CAPSULE 120 MG PO (09:30)
--- NOTE | 2020-04-10 11:34 | DIET.PN ---
Dietary Progress Note Assessment: 60y F admitted for 3d increasing SOB c past medical history significant for pulmonary fibrosis diagnosed in 2018, COPD, chronic hypoxemic respiratory failure on 3 L of oxygen, pulmonary hypertension, tobacco dependence, hyperlipidemia, diabetes mellitus type 2, non-insulin using, with complication of diabetic polyneuropathy and chronic pain, extensive mental health issues issues including bipolar disorder, PTSD, anxiety and depression with suicidal attempt recently referred to nutrition for weight loss. HT: 157.4cm WT: 56.6kg UBW: 62kg BMI: 22.8 Labs: na 128 L, BUN 6 L, Cr 0.36 L, ABG derangements Pt reports one main meal per day at lunchtime which consists of taco salad c lettuce, onion, tomatoes, meat, and low kcal ranch. Pt occasionally has bowl of Special K cereal c 1% milk in evening. Pt smokes cigarettes and drinks coffee with non-dairy creamer throughout the day. Pt reports being homebound and on fixed income c EBT benefits which do not supply foods to support her health. Pt was getting Meals on Wheels pre-covid but stopped service as she got $250 bill which she couldn't pay and felt like she was wasting the food they brought her. Pt does not like ONS supps as they are too thick and sweet. Pt agreeable to bid yogurt instead. Nutrition Diagnosis: Severe Acute on Chronic Protein Calorie Malnutrition r/t progression of pulmonary fibrosis, food and nutrition related knowledge deficit, and food insecurity aeb 12% weight loss in 6mo (severe), <50% EER, low creatinine and BUN, pt reports not having enough money to purchase foods to support her health, pt is homebound, pt requiring 25L heated high flow O2 up from 3L supplemental, pt food recall includes one meal per day of raw vegetable salad c protein. Interventions: 1. Recc ONS yogurt bid to supplement pts PRO and kcal needs between meals. 2. Educated pt extensively on foods to support weight maintenance and foods to eat c pulmonary fibrosis. Encouraged pt to switch from 1% to 2% milk on cereal, focus on healthy fats and proteins to supply needed pro and kcals, and to eat cooked rather than raw foods to reduce work of alternating chewing with breathing. 3. Encouraged pt to eat well while in hospital to support her body and lungs. Diet Order: General EER: 2,000kcal (35kcal/kg per PCM), 75g PRO (1.3g/kg per PCM) Monitoring/Evaluations: POs
[2020-04-10] MEDS: ENOXAPARIN 40 MG/0.4 ML SYRINGE SUBCUT (11:57)
[2020-04-10] MEDS: NICOTINE 21 MG PATCH TOP (11:58)
[2020-04-10] MEDS: DOCUSATE 100 MG CAPSULE PO (14:12)
[2020-04-10] MEDS: CEFTRIAXONE 2 GM/50 ML FROZ.PIGGY IV (14:12)
[2020-04-10] MEDS: AZITHROMYCIN 500 MG in DEXTROSE 5% IN WATER 250 ML IV (14:44)
--- NOTE | 2020-04-10 15:03 | PC.NURSE ---
7-3 SHIFT NOTE: PT HYPOXIC FOR LENGTHY TIME- MEDICATED WITH IV LORZ/MS AND CODE STATUS CHANGED TO DNR/DNI- MD AT BEDSIDE - O2 REMAINS ON HHFNC 100% INITIALLY WITH SPO2 MID 60-70'S. UP TO BSC TO VOID- ABLE TO TOLERATE VERY LITTLE MOBILITY ALTHOUGH THIS IS IMPROVING THROUGHOUT DAY - NOW DOWN TO 50% 35LITERS FOR SPO2 90-95%- DENIES PAIN- BUT MORPHINE FOR WORKLOAD OF BREATHING- BEING TREATED FOR UTI WELL
[2020-04-10] MEDS: methylPREDNISolone 125 MG/2 ML VIAL 60 MG IV ×2 (16:30→23:46)
[2020-04-10] MEDS: AMITRIPTYLINE 25 MG TABLET 100 MG PO (20:00)
[2020-04-10] MEDS: SIMVASTATIN 20 MG TABLET PO (20:00)
[2020-04-10] MEDS: PRIMIDONE 50 MG TABLET PO (20:02)
[2020-04-10] MEDS: QUETIAPINE 25 MG TABLET 100 MG PO (20:02)
--- NOTE | 2020-04-10 23:56 | PC.NURSE ---
Phone call received, stating patient should be placed on contact precautions due to gram + cocci in urine. Order to be placed, isolation cart and signage placed outside of patient's room.
[2020-04-11] VITALS (12 sets, daily range): BP systolic 104–120; BP diastolic 56–62; PULSE 61–77; RESP 12–26; TEMP 36.1–37.4; O2SAT 89–97
--- NOTE | 2020-04-11 02:45 | PC.NURSE ---
Addendum entered by Erlinda Hendrix R.N. 04/11/20 02:52: Correction: RN placed patient on nonrebreather mask at 15L, in addition to hi flow cannula, per RT recommendations. Original Note: Contacted respiratory therapy regarding patient's heated hi flow machine alarming due to patient disconnect. RT stated that meant patient was breathing through her mouth and it was not registering patient's breathing. Educated patient on this, and why the machine was beeping. Also informed RT of patient's sats at 84% on 45% Fi02. RT instructed RN to place patient on nonrebreather mask for 15 minutes to allow patient's reserve to come up. RN placed patient on nonrebreather mask at 15L. Sats currently 91%.
[2020-04-11 05:17] LABS: Add Manual Diff / Slide Review NO; Basophils Absolute Auto 0 /uL (0-100); Basophils Percent Auto 0.3 % (0-2); Eosinophils Absolute Auto 0 /uL (0-450); Eosinophils Percent Auto 0.1 % (2-4); Hematocrit 30.1 % (36-46); Lymphocytes Absolute Auto 1100 /uL (1100-4500); Lymphocytes Percent Auto 13.1 % (25-40); Mean Corpuscular HGB Conc 33.3 % (30-36); Mean Corpuscular Hemoglobin 27.8 PG (26-34); Mean Corpuscular Volume 83.3 fL (80-100); Monocytes Absolute Auto 400 /uL (0-900); Monocytes Percent Auto 4.7 % (3-14); Neutrophils Absolute Auto 7200 /uL (1500-7000); Neutrophils Percent Auto 81.8 % (50-75); Platelet Count 256 X10^3/uL (150-400); Red Blood Cell Count 3.61 X10^6/uL (4.0-5.2); Red Cell Distribution Width 17.9 % (11.6-14.8); White Blood Cell Count 8.7 X10^3/uL (4.5-11.0)
[2020-04-11 05:34] LABS: BUN Creatinine Ratio 34.4 (6-22); Blood Urea Nitrogen 11 mg/dL (7-17); Carbon Dioxide 30 mmol/L (22-32); Chloride 97 mmol/L (98-107); Estimated Glomerular Filt Rate > 60.0 mL/min (>60); Glucose 160 mg/dL (70-100); HEMOLYSIS < 15 (0-50); Potassium 4.5 mmol/L (3.4-5.1); Sodium 128 mmol/L (137-145)
--- NOTE | 2020-04-11 05:51 | PC.NURSE ---
law enforcement instructor note: Patient has been up, ambulating to bedside commode multiple times throughout shift with minimal respiratory distress. Patient remains on heated hi flow nasal cannula, currently at 60% Fi02, 25L due to RT titration. Patient remains AOx4, VSS. Patient placed on isolation precautions at beginning of shift due to gram + cocci in urine culture. Patient has not required any PRN pain medication or anxiety medication throughout shift. Patient currently resting in bed, sleeping. Will continue to monitor.
[2020-04-11] MEDS: INSULIN ASPART 100 UNIT/ML INSULN PEN SUBCUT ×4 (06:41→20:38)
[2020-04-11] MEDS: ALBUTEROL/IPRATROPIUM 3 ML AMPUL INH ×4 (07:03→19:34)
[2020-04-11] MEDS: BUDESONIDE 0.5 MG/2 ML NEB INH ×2 (07:03→19:35)
[2020-04-11] MEDS: NICOTINE 21 MG PATCH TOP (08:33)
[2020-04-11] MEDS: ENOXAPARIN 40 MG/0.4 ML SYRINGE SUBCUT (08:33)
[2020-04-11] MEDS: DULOXETINE 30 MG CAPSULE 120 MG PO (08:35)
[2020-04-11] MEDS: methylPREDNISolone 125 MG/2 ML VIAL 60 MG IV ×2 (08:36→16:42)
[2020-04-11] MEDS: GABAPENTIN 600 MG TABLET 1200 MG PO ×3 (08:41→20:37)
[2020-04-11] MEDS: lisinopriL 5 MG TABLET 2.5 MG PO (08:42)
[2020-04-11] MEDS: PREGABALIN 75 MG CAPSULE PO ×3 (08:42→20:38)
[2020-04-11] MEDS: OXcarbazepine 150 MG TABLET 300 MG PO (08:45)
[2020-04-11] MEDS: MORPHINE 2 MG/ML INJ IV ×3 (08:45→20:50)
[2020-04-11] MEDS: DOCUSATE 100 MG CAPSULE PO (08:49)
[2020-04-11] MEDS: polyethylene glycoL 3350 17 GM POWD.PACK PO (08:49)
[2020-04-11 09:46] LABS: Fractionated Inspired Oxygen 60; HCO3 ABG 27 mmol/L (22-26); Oxygen Saturation ABG 96 % (95-100); PCO2 ABG 40.8 mmHg (35-45); PO2 ABG 79 mmHg (80-100); TCO2 ABG 28 mmol/L (21-31); pH ABG 7.43 (7.35-7.45)
[2020-04-11] MEDS: LORazepam 2 MG/ML INJ 0.5 MG IV ×2 (10:48→14:00)
[2020-04-11] MEDS: CEFTRIAXONE 2 GM/50 ML FROZ.PIGGY IV (13:58)
[2020-04-11] MEDS: BISACODYL 10 MG SUPP PR (13:58)
[2020-04-11] MEDS: BISACODYL 5 MG TABLET 10 MG PO (14:06)
--- NOTE | 2020-04-11 14:11 | CM.DPNOTE ---
DCP Cont Reviewed chart and spoke w/Dr Hester this afternoon re POC. patient remains on heated high flow, 30L, patient is not medically declining at this time, although, she has not made progress towards hospital goal for DC: to wean off heated high flow (in preparation for DC home on O2). Dr Hester hopeful to see progress over the next day or two but patient may inevitably need to decide on next steps in POC- attempt transfer to [place] [facility] for half-way RT management (if patient qualifies?) vs transition to comfort management (possibly in the hospital) vs home w/hospice (unsure if patient has any in home support for this?) Visited w/patient today at bedside, offered support. Patient admits she dissociates and she was likely told numerous times by providers about the disease trajectory for pulmonary fibrosis. Patient unsure what will happen next, states she is going a day at a time but very hopeful to return home soon. Discussed supports; Patient reviews how difficult the COVID-19 pandemic has made social connection, she has not seen any restoration friends/community and does not see any other friends, especially if they are at all symptomatic. Patient has two dtrs that live in [place], she states they are both estranged, patient has one grand baby. Patient has been attempting to contact her dtrs to update on her prognosis and hopeful she can see her dtrs and grand baby at least one more time. Patient has contacted her counselor, Breann, through [facility], multiple times since being admitted. Patient is a part of their intensive outpatient program. Patient had a psychiatric visit scheduled for today but had to cancel, psychiatrist states I don't have privileges at psychiatrist will be in close contact w/Breann, patient's counselor for updates. Then connected w/Cole Lazcano, [place] w/the [facility] program through [facility] P# [phone]. Cole has access to patient's records through the [facility] contract w/ [employer]. Patient also gave this SCHOOL SPEECH LANGUAGE PATHOLOGIST permission to speak w/ Cole aboutanything he needs to know. Cole has known patient for at least 5 years and explains before COVID-19 pandemic, he would be visiting patient in the hospital while admitted and then continue visitation once home, Cole provides care coordination/ continuity of care, now he must check in by phone. This SCHOOL SPEECH LANGUAGE PATHOLOGIST will attempt to keep Cole updated, patient feels Cole provides good advocacy and support to her in the outpatient setting. Following closely for support and coordination of DCP as POC unfolds. NIGHAT Stephens
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
[2020-04-11] MEDS: AMITRIPTYLINE 25 MG TABLET 100 MG PO (20:36)
[2020-04-11] MEDS: QUETIAPINE 25 MG TABLET 100 MG PO (20:37)
[2020-04-11] MEDS: SIMVASTATIN 20 MG TABLET PO (20:38)
[2020-04-11] MEDS: PRIMIDONE 50 MG TABLET PO (20:38)
[2020-04-11] MEDS: LORazepam 0.5 MG TABLET PO (20:50)
--- NOTE | 2020-04-11 22:19 | PC.NURSE ---
Shift Note: Pt awake alert and oriented x4, out of bed with one person assist. Continues on HHFNC at 40% FIO2, 30L, sats 95%. Breath sounds equal, with crackles throughout. Heart tones audible, RRR, all pulses palpable. Pt complains of not being able to have a BM, laxatives and suppository given earlier in the day without good result. Now complains of some indigestion.
[2020-04-12] VITALS (20 sets, daily range): BP systolic 100–133; BP diastolic 55–61; PULSE 57–92; RESP 12–24; TEMP 36.2–36.8; O2SAT 83–94
[2020-04-12] MEDS: methylPREDNISolone 125 MG/2 ML VIAL 60 MG IV ×3 (00:15→17:08)
--- NOTE | 2020-04-12 05:19 | PC.NURSE ---
Addendum entered by Erlinda Hendrix R.N. 04/12/20 05:22: Patient attempted to have BM but unsuccessful even after laxatives throughout the day. Patient with no complaints of nausea or indigestion. Patient not requiring any PRN pain medication throughout the shift, either. Original Note: Patient has slept majority of the night, waking to use bedside commode. Patient with VSS, remains on 30 L, 40% FIO2 via heated high flow cannula. Sats range from 89-92%.
[2020-04-12] MEDS: BUDESONIDE 0.5 MG/2 ML NEB INH ×2 (06:06→19:13)
[2020-04-12] MEDS: ALBUTEROL/IPRATROPIUM 3 ML AMPUL INH ×4 (06:06→19:13)
[2020-04-12] MEDS: INSULIN ASPART 100 UNIT/ML INSULN PEN SUBCUT ×2 (06:36→17:03)
[2020-04-12 08:45] LABS: Fractionated Inspired Oxygen 40; HCO3 ABG 28 mmol/L (22-26); Oxygen Saturation ABG 97 % (95-100); PCO2 ABG 40.7 mmHg (35-45); PO2 ABG 85 mmHg (80-100); TCO2 ABG 29 mmol/L (21-31); pH ABG 7.44 (7.35-7.45)
[2020-04-12] MEDS: MORPHINE 2 MG/ML INJ IV ×3 (09:14→18:43)
[2020-04-12] MEDS: LORazepam 0.5 MG TABLET PO ×3 (09:15→21:10)
[2020-04-12] MEDS: DULOXETINE 30 MG CAPSULE 120 MG PO (10:23)
[2020-04-12] MEDS: GABAPENTIN 600 MG TABLET 1200 MG PO ×3 (10:23→21:03)
[2020-04-12] MEDS: ENOXAPARIN 40 MG/0.4 ML SYRINGE SUBCUT (10:23)
[2020-04-12] MEDS: lisinopriL 5 MG TABLET 2.5 MG PO (10:24)
[2020-04-12] MEDS: OXcarbazepine 150 MG TABLET 300 MG PO (10:25)
[2020-04-12] MEDS: PREGABALIN 75 MG CAPSULE PO ×3 (10:25→21:03)
[2020-04-12] MEDS: NICOTINE 21 MG PATCH TOP (10:25)
--- NOTE | 2020-04-12 10:32 | PT.IIE ---
Current Diagnoses Acute and chronic respiratory failure, unspecified whether with hypoxia or hypercapnia (04/08/20) Surgical History (Last Reviewed 04/08/20 @ 19:43 by Liana Barbosa MD) History of 2 sections (Chronic) History of total abdominal hysterectomy (Chronic 2002) Medical History (Last Reviewed 04/08/20 @ 19:43 by Liana Barbosa MD) COPD (chronic obstructive pulmonary disease) (Chronic) Diabetes (Acute) Gastroesophageal reflux disease (Acute) Hypertension (Acute) Pulmonary fibrosis (Chronic) Pulmonary hypertension (Chronic) Physical Therapy Inpatient Evaluation/Re-Eval M1 PT/OT-IP Prior Functional Status Start: 04/12/20 10:15 Freq: NEEDED Status: Active Protocol: Document 04/12/20 10:15 SAK (Rec: 04/12/20 10:32 SAK [id number]) Medical Review Prior Functional Status Medical History Reviewed Yes Communication WNL Mobility and Gait Ambulated in her home and yard with 4WW due to history of multiple falls and fractures, especially when gardening Activities of Daily Living and IADL's independent Prior Functional Level (Other details) Has history of having caregivers to assist in the home and with shopping and transportation. Reports her insurance is no longer paying for this Social History Household Members none Living Arrangements Mobile home Number of Floors (Floors) One Floor Number of Stairs To Enter/Railing? has a ramp Home Environment Standard Height Toilet,Tub/ Shower Home Equipment Four Wheel Walker,Shower Seat with Backrest Additional Social History Comment disabled M2 PT-IP Current Condition Start: 04/12/20 10:15 Freq: NEEDED Status: Active Protocol: Document 04/12/20 10:15 SAK (Rec: 04/12/20 10:32 SAK [email or web address]) Physical Therapy Current Condition Current Condition Evaluation Date 04/12/20 Treatment Diagnosis SOB x 3 days Onset Date 3 days Precautions Other Precautions On heated hi flow oxygen at 30L (was increased to 40L by respiratory therapy during PT session) Weight Bearing Status Weight Bearing Status Full Weight Bearing M3 PT-IP Subjective Start: 04/12/20 10:15 Freq: NEEDED Status: Active Protocol: Document 04/12/20 10:15 SAK (Rec: 04/12/20 10:32 SAK [email or web address]) Subjective Physical Therapy Visit Type Type Initial Evaluation Visit Start Time 09:22 Visit Stop Time 10:12 Total Visit Minutes 50 Physical Therapy Visit Comments Patient Comments Patient reports Hospice is being discussed for her at discharge Patient Goals hoping to be discharged home. Has small dog to take care of Therapy Pain Assessment Pain When Pain Assessed denied dana Pain Present Pain Present Denied Pain M4 PT-IP Mobility and Gait Start: 04/12/20 10:15 Freq: NEEDED Status: Active Protocol: Document 04/12/20 10:15 SAK (Rec: 04/12/20 10:32 SAK [email or web address]) PT-Bed Mobility Assessment Supine to Sit Supine to Sit Minimal Assistance Scooting Scooting to Edge of Bed Minimal Assistance PT-Transfer Assessment Sit to and From Stand Sit to and from Stand Contact Guard Assistance Equipment Transfer Assistive Device 4 Wheeled Walker Orthotic/Prosthetic Devices or Brace: No Transfers Transfer Destination Chair Transfer Ability Level of Assist Contact Guard Assistance Gait Assessment Gait Gait Assistance Required: Contact Guard Assist Distance (Feet) 6 Assistive Devices Assistive Device 4 Wheeled Walker Gait Deviations General Gait Pattern Decreased Stride Length, Decreased Feet Clearance Factors Limiting Gait Function Factors Limiting Gait Function Decreased Activity Tolerance Comments Gait Comments Ambulated from bed to window with 4WW, respiratory therapist present to monitor patient status and equipment. Patient assisted to chair and was left sitting up, call light in place, HOME THEATER SPECIALIST and respiratory therapist in the room. PT-Balance Assessment Sitting Balance and Reactions Static Sitting Balance Ability Good Dynamic Sitting Balance Ability Good Standing Balance and Reactions Static Standing Balance Ability Fair Dynamic Standing Balance Ability Fair Comments Other Balance Tests/Deviations/Treatment No LOB during mobility skills : using 4WW M5 PT-IP Objective Assessments Start: 04/12/20 10:15 Freq: NEEDED Status: Active Protocol: Document 04/12/20 10:15 SAK (Rec: 04/12/20 10:32 [facility] [id number]) Orientation Orientation/Cognition Level of Alertness Alert Orientation Name,Place,Situation Language Function Ability No Deficits Noted Safety Awareness Understands Safety Issues Gross Range of Motion Upper Extremity ROM Assessment Within Functional Limits Lower Extremity ROM Assessment Within Functional Limits Strength Upper Extremity Strength Assessment Within Functional Limits Lower Extremity Strength Assessment Within Functional Limits Comments Strength Comments low muscle endurance Coordination Assessment Gross Coordination Gross Coordination WNL Sensation Assessment Sensation Gross Sensation Right LE Impaired,Left LE Impaired Sensation Description Numbness Comments Sensation Comments neuropathy bilaterally Muscle Tone Muscle Tone WNL Yes M6 PT-IP Treatment Start: 04/12/20 10:15 Freq: NEEDED Status: Active Protocol: Document 04/12/20 10:15 SAK (Rec: 04/12/20 10:32 [facility] [email or web address]) Physical Therapy Treatment Exercises Exercises Ankle Pumps,Heel Slides Other Treatments Other Treatment Performed gait in room, cues for pacing and nasal breathing M7 PT-IP Assessment and Plan Start: 04/12/20 10:15 Freq: NEEDED Status: Active Protocol: Document 04/12/20 10:15 [facility] (Rec: 04/12/20 10:32 [facility] [id number]) PT Summary Assessment and Plan Potential Rehabilitation Potential Fair Status of Condition at Evaluation Evolving Summary Impairments Strength,Gait,Activity Tolerance Goals Bed Mobility Goal Independent Transfer Goal Independent Gait Goal Independent Gait Distance 200' Days to Meet Goals 5 Frequency of Treatment Frequency Of Treatment Twice a Day Treatment Plan Physical Therapy Treatment Plan Bed Mobility Training,Transfer Training,Gait Training, Therapeutic Exercise,Discharge Planning Recommendations To Nursing Amount of Assist Needed 2 Person Assist Discharge Recommendations PT Discharge Recommendations Home with Assistance,Home Health Equipment Needed for Home Before further assessment needed Discharge
--- NOTE | 2020-04-12 11:56 | OT.IP.EVAL ---
Current Diagnoses Acute and chronic respiratory failure, unspecified whether with hypoxia or hypercapnia (04/08/20) Past Medical History (Last Reviewed 04/08/20 @ 19:43 by Liana Barbosa MD) COPD (chronic obstructive pulmonary disease) (Chronic) Diabetes (Acute) Gastroesophageal reflux disease (Acute) Hypertension (Acute) Pulmonary fibrosis (Chronic) Pulmonary hypertension (Chronic) Surgical History (Last Reviewed 04/08/20 @ 19:43 by Liana Barbosa MD) History of 2 sections (Chronic) History of total abdominal hysterectomy (Chronic 2002) Occupational Therapy Inpatient Evaluation/Re-Eval M1 PT/OT-IP Prior Functional Status Start: 04/12/20 10:15 Freq: NEEDED Status: Active Protocol: Document 04/12/20 13:22 CGR (Rec: 04/12/20 13:41 CGR [email or web address]) Medical Review Prior Functional Status Medical History Reviewed Yes Communication WNL Mobility and Gait Ambulated in her home and yard with 4WW due to history of multiple falls and fractures, especially when gardening Activities of Daily Living and IADL's Pt states she is able to do most tasks with extra time but that she leaves the cleaning 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 Prior Functional Level (Other details) Pt has assistance once a week for general house keeping and laundry. Social History Household Members none Living Arrangements Mobile home Number of Floors (Floors) One Floor Number of Stairs To Enter/Railing? has a ramp Home Environment Standard Height Toilet,Walk in Shower,Tub/Shower Home Equipment Four Wheel Walker,Raised Toilet Seat w/Armrests,Shower Seat with Backrest,Hand Held Shower Additional Social History Comment Pt is disabled. Pt has an adjustable bed. M2 OT-IP Current Condition Start: 04/12/20 13:22 Freq: Status: Active Protocol: Document 04/12/20 13:22 CGR (Rec: 04/12/20 13:41 CGR [email or web address]) Occupational Therapy Current Condition Current Condition Evaluation Date 04/12/20 Treatment Diagnosis SOB, PNA, acute on chronic respiratory failure. Diagnosis Onset Date 04/11/20 M3 OT- IP Subjective and Pain Start: 04/12/20 13:22 Freq: Status: Active Protocol: Document 04/12/20 13:22 CGR (Rec: 04/12/20 13:41 CGR [email or web address]) OT- Subjective Occupational Therapy Visit Type Type Initial Evaluation Visit Start Time 11:32 Visit Stop Time 11:56 Total Visit Minutes 24 Notes Pt requesting to stay up in the chair as she feels comfortable. OT Pain Assessment Pain When Pain Assessed At Rest Pain Present Pain Present Denied Pain M4 OT- IP ADL's Start: 04/12/20 13:22 Freq: Status: Active Protocol: Document 04/12/20 13:22 CGR (Rec: 04/12/20 13:41 CGR [email or web address]) OT AFA-Fith-Chzcctt Comments OT Self-Feeding Comments not meal time OT ADL-Grooming General Evaluation Grooming Ability Standby Assistance Areas Needing Assistance Retrieving/Set-up of Grooming Items,Face Washing Comments OT Grooming Comments seated in chair OT ADL-Oral Care General Eval Oral Care Ability Standby Assistance Areas of Assistance Brushing Teeth,Retrieving/Set- Up of Items Comments Oral Care Comments seated in chair. OT ADL-Dressing General Eval Lower Body Dressing Ability Total Assistance Areas Needing Assistance Socks Comments OT Dressing Comments seated in chair OT ADL-Toileting Comments OT Toileting Comments not performed OT ADL-Bathing Bathing Type Bathing Type Sponge Bath General Evaluation Bathing Ability Minimal Assistance Areas Needing Assistance Retrieving/Setting Up Items Comments OT Bathing Comments Pt performed seated in chair. Pt states she would like to wash up her upper body. Pt provided with warm wash cloths and pt was able to perform arm and chest cleaning without assist. Pt declined further cleaning at this time but is interested in a shower soon. M5 OT- IP IADL's Start: 04/12/20 13:22 Freq: Status: Active Protocol: Document 04/12/20 13:22 CGR (Rec: 04/12/20 13:41 CGR [email or web address]) OT-Instrumental Activities of Daily Living Deficits IADL Deficits Identified Deficits Home Safety Awareness Awareness of Need for Assistance at Home Good Awareness Ability to Problem Solve Emergency Able to Problem Solve Situations Medication Management Medication Management No Deficits Identified Money Management Money Management No Deficits Identified Meal Preparation Meal Preparation Caregiver Provides Assist Ingredient Specialist Ingredient Specialist Caregiver Provides Assist Driving Driving Comments Pt states that she has not driven in 5 years. M6 OT- IP Functional Cognition Start: 04/12/20 13:22 Freq: Status: Active Protocol: Document 04/12/20 13:22 CGR (Rec: 04/12/20 13:41 CGR [email or web address]) Cognitive Factors Limiting Selfcare Function Cognitive Ability Level of Alertness Alert Patient Orientation Name,Age,Birthday,Month,Date, Year,Day of Week,Place, Situation Attention Span Ability Capable of Focused Attention, Capable of Sustained Attention Ability to Follow Commands Able to Follow One Step Commands Memory Description No Deficits Noted Safety Awareness No Deficits Noted Cognitive Comments Cognitive Assessment Comments Pt would benefit from formal cog assessment. OT- Vision and Hearing OT- Hearing Assessment OT- Hearing Assessment WFL OT- Vision Assessment Visual Acuity WFL,Glasses All The Time Visual Attentiveness WFL Occular Pursuits WFL Visual Convergence WFL Vision Assessment Comments Pt wears bifocals M7 OT- IP Mobility and Balance Start: 04/12/20 13:22 Freq: Status: Active Protocol: Document 04/12/20 13:22 CGR (Rec: 04/12/20 13:41 CGR [email or web address]) OT-Transfer Assessment Sit to and From Stand Sit to and from Stand Contact Guard Assistance Transfers Transfer Ability Contact Guard Assistance, Minimal Assistance Technique Transfer Destination Chair Transfer Technique Stand Step Pivot Devices Transfer Assistive Devices Gait Belt Comments Mobility Comments Pt performed sit to stand and marching in place with gait belt. Pt needed min a for maintaining balance with marching but states that she typically has her 4ww. OT- Balance Assessment Sitting Balance and Reactions Static Sitting Balance Ability Good Dynamic Sitting Balance Ability Fair M8 OT- IP Objective Assessments Start: 04/12/20 13:22 Freq: Status: Active Protocol: Document 04/12/20 13:22 CGR (Rec: 04/12/20 13:41 CGR [email or web address]) OT Gross Range of Motion Upper Extremity Range of Motion Assessment Bilaterally Impaired ROM Impairments B shld impairment with pain. Pt with greater ROM to the RUE than the LUE. OT Strength Upper Extremity Strength Assessment Within Functional Limits Comments Strength Comments 4-/5 throguhout OT- Coordination Assessment Upper Extremity Finger to Nose Test Within Functional Limits Finger Tapping Test Within Functional Limits OT-Muscle Tone Assessment Muscle Tone WNL Yes OT Sensation Assessment Edema Edema Absent M9 OT- IP Assessment and Plan Start: 04/12/20 13:22 Freq: Status: Active Protocol: Document 04/12/20 13:22 CGR (Rec: 04/12/20 13:41 CGR [email or web address]) OT Summary Assessment and Plan Potential Rehabilitation Potential Fair Analytic Complexity at Evaluation Moderate Summary OT Impairments Range of Motion,Strength, Balance,Functional Mobility, Grooming,Dressing,Toileting, Bathing,Toilet Transfers, Shower Transfers,Activity Tolerance Progress Towards Goals Slow Progress due to Medical Issues,Slow Progress due to Activity Tolerance Assessment Summary Pt presents as a moderate complexity evaluation s/p decline in respiratory status. Pt with significant hx of respiratory disorders and making slow progress at this time. Pt will benefit form continued OT services to address declines. Recommendation at this time is for SNF but as pt's endurance improves pt may be appropriate for d/c home. Goals Grooming Goal Independent Dressing Goal Independent Toileting Goal Independent Bathing Goal Independent,Grab Bars,Hand Held Shower Sprayer Toilet Transfer Goal Independent,Raised Toilet Seat With Rails,Grab Bars Shower Transfer Goal Independent,Walk-in Shower, Shower Chair Days to Meet Goals 15 Frequency of Treatment Frequency Of Treatment Once a Day Treatment Plan OT Treatment Plan ADL Training,Functional Mobility,Patient/Family Education,Discharge Planning Other Treatment Recommendations and Next slums, shower Treatment Focus Discharge Recommendations OT Discharge Recommendations SNF Rehab Transportation Needs at Discharge Private Vehicle
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
[2020-04-12] MEDS: CEFTRIAXONE 2 GM/50 ML FROZ.PIGGY IV (12:48)
[2020-04-12] MEDS: polyethylene glycoL 3350 17 GM POWD.PACK PO (13:09)
[2020-04-12] MEDS: BISACODYL 5 MG TABLET 10 MG PO (13:09)
[2020-04-12 14:08] LABS: HCO3 ABG 27 mmol/L (22-26); PCO2 ABG 40.7 mmHg (35-45); PO2 ABG 59 mmHg (80-100); TCO2 ABG 28 mmol/L (21-31); pH ABG 7.43 (7.35-7.45)
[2020-04-12 14:09] LABS: Fractionated Inspired Oxygen 30; Oxygen Saturation ABG 91 % (95-100)
--- NOTE | 2020-04-12 14:31 | PT.IPTN ---
Current Diagnoses Acute and chronic respiratory failure, unspecified whether with hypoxia or hypercapnia (04/08/20) Physical Therapy Treatment Note M2 PT-IP Current Condition Start: 04/12/20 10:15 Freq: NEEDED Status: Active Protocol: Document 04/12/20 10:15 SAK (Rec: 04/12/20 10:32 SAK [email or web address]) Physical Therapy Current Condition Current Condition Evaluation Date 04/12/20 Treatment Diagnosis SOB x 3 days Onset Date 3 days Precautions Other Precautions On heated hi flow oxygen at 30L (was increased to 40L by respiratory therapy during PT session) Weight Bearing Status Weight Bearing Status Full Weight Bearing M3 PT-IP Subjective Start: 04/12/20 10:15 Freq: NEEDED Status: Active Protocol: Document 04/12/20 14:10 [place] (Rec: 04/12/20 15:54 [place] [id number]) Subjective Physical Therapy Visit Type Type Treatment Note Visit Start Time 14:10 Visit Stop Time 14:31 Total Visit Minutes 21 Number of FRAMING MECHANIC Visits 1 Physical Therapy Visit Comments Patient Comments Patient reports Hospice is being discussed for her at discharge Patient Goals hoping to be discharged home. Has small dog to take care of M4 PT-IP Mobility and Gait Start: 04/12/20 10:15 Freq: NEEDED Status: Active Protocol: Document 04/12/20 14:10 KS (Rec: 04/12/20 15:54 KS [id number]) PT-Bed Mobility Assessment Supine to Sit Supine to Sit Standby Assistance,Head of Bed Elevated PT-Transfer Assessment Comments Mobility Comments Pt in bed upon arrival from therapy and reported fatigue from previous activity and several hours spent in chair, but agreed to perform LE exercises to promote strengthening and blood flow. Pt completed 1x10 bilateral ankle pumps, quad sets, glute sets, and heel slides. Pt tolerated exercises well, with cues for breathing throughout . Dr. Hester arrived during treatment and discussed pts prognosis. Gait Assessment Comments Gait Comments Not assessed d/t fatigue. M5 PT-IP Objective Assessments Start: 04/12/20 10:15 Freq: NEEDED Status: Active Protocol: Document 04/12/20 10:15 SAK (Rec: 04/12/20 10:32 SAK [email or web address]) Orientation Orientation/Cognition Level of Alertness Alert Orientation Name,Place,Situation Language Function Ability No Deficits Noted Safety Awareness Understands Safety Issues Gross Range of Motion Upper Extremity ROM Assessment Within Functional Limits Lower Extremity ROM Assessment Within Functional Limits Strength Upper Extremity Strength Assessment Within Functional Limits Lower Extremity Strength Assessment Within Functional Limits Comments Strength Comments low muscle endurance Coordination Assessment Gross Coordination Gross Coordination WNL Sensation Assessment Sensation Gross Sensation Right LE Impaired,Left LE Impaired Sensation Description Numbness Comments Sensation Comments neuropathy bilaterally Muscle Tone Muscle Tone WNL Yes M6 PT-IP Treatment Start: 04/12/20 10:15 Freq: NEEDED Status: Active Protocol: Document 04/12/20 14:10 KS (Rec: 04/12/20 15:54 KS [id number]) Physical Therapy Treatment Exercises Exercises Ankle Pumps,Gluteal Sets,Quad Sets,Heel Slides Other Treatments Other Treatment Performed Educated pt on breathing techniques during exercise. Spoke w/ PT Jie regarding pts mobility and agree to decrease pt to once a day d/t pt unable to tolerate 2 treatments a day d/t medical status. M7 PT-IP Assessment and Plan Start: 04/12/20 10:15 Freq: NEEDED Status: Active Protocol: Document 04/12/20 14:10 [place] (Rec: 04/12/20 15:54 [place] [id number]) PT Summary Assessment and Plan Potential Rehabilitation Potential Fair Status of Condition at Evaluation Evolving Summary Impairments Strength,Gait,Activity Tolerance Goals Bed Mobility Goal Independent Transfer Goal Independent Gait Goal Independent Gait Distance 200' Days to Meet Goals 5 Frequency of Treatment Frequency Of Treatment Once a Day Treatment Plan Physical Therapy Treatment Plan Bed Mobility Training,Transfer Training,Gait Training, Therapeutic Exercise,Discharge Planning Recommendations To Nursing Amount of Assist Needed 2 Person Assist Discharge Recommendations PT Discharge Recommendations Home with Assistance,Home Health Equipment Needed for Home Before further assessment needed Discharge
--- NOTE | 2020-04-12 15:33 | PC.NURSE ---
Dayshift Note: Pt with uneventful shift. Pt remains on heated high flow NC, initially 40% with 30 L flow, weaned down to 30% FiO2 with 25 L flow based on ABG results. Pt is SOB with exertion. Up to chair for several hours today, SB assist. Using commode for voiding, adequate volume. Pt remains constipated, given dulcolax PO per MD order and pt request, also given miralax mixed in prune juice. Tolerating diet. No other changes to medication or plan. Will continue to monitor, notify MD with changes.
[2020-04-12] MEDS: SODIUM CHLORIDE 0.9% FLUSH 10 ML IV (17:10)
[2020-04-12] MEDS: DOCUSATE 100 MG CAPSULE PO (21:02)
[2020-04-12] MEDS: AMITRIPTYLINE 25 MG TABLET 100 MG PO (21:02)
[2020-04-12] MEDS: SIMVASTATIN 20 MG TABLET PO (21:03)
[2020-04-12] MEDS: QUETIAPINE 25 MG TABLET 100 MG PO (21:03)
[2020-04-12] MEDS: PRIMIDONE 50 MG TABLET PO (21:03)
--- NOTE | 2020-04-12 22:42 | PC.NURSE ---
End of shift note: Pt tolerating HHFNC settings 30% 25L. Desats into the 80s when up to BSC and recovers after several minutes. tolerating diet and continues to hydrate well. Medicated for pain as needed.
[2020-04-13] VITALS (12 sets, daily range): BP systolic 110–133; BP diastolic 57–70; PULSE 52–71; RESP 12–19; TEMP 36.4–37.3; O2SAT 91–97
[2020-04-13] MEDS: FAMOTIDINE 20 MG/50 ML PIGGYBACK 200 MG IV ×2 (00:12→12:06)
[2020-04-13] MEDS: CALCIUM CARBONATE 500 MG TAB PO ×4 (00:12→20:35)
[2020-04-13] MEDS: methylPREDNISolone 125 MG/2 ML VIAL 60 MG IV ×3 (00:22→17:11)
[2020-04-13 05:13] LABS: Add Manual Diff / Slide Review NO; Basophils Absolute Auto 0 /uL (0-100); Basophils Percent Auto 0.1 % (0-2); Eosinophils Absolute Auto 0 /uL (0-450); Eosinophils Percent Auto 0.1 % (2-4); Hemoglobin 10.9 g/dL (12.0-16.0); Lymphocytes Absolute Auto 1500 /uL (1100-4500); Lymphocytes Percent Auto 21.5 % (25-40); Mean Corpuscular Hemoglobin 27.5 PG (26-34); Mean Corpuscular Volume 83.3 fL (80-100); Monocytes Absolute Auto 300 /uL (0-900); Monocytes Percent Auto 4.7 % (3-14); Neutrophils Absolute Auto 5100 /uL (1500-7000); Neutrophils Percent Auto 73.6 % (50-75); Platelet Count 343 X10^3/uL (150-400); Red Blood Cell Count 3.96 X10^6/uL (4.0-5.2); Red Cell Distribution Width 17.8 % (11.6-14.8); White Blood Cell Count 6.9 X10^3/uL (4.5-11.0)
[2020-04-13 05:20] LABS: Blood Urea Nitrogen 8 mg/dL (7-17); Calcium 8.3 mg/dL (8.4-10.2); Carbon Dioxide 30 mmol/L (22-32); Chloride 98 mmol/L (98-107); Estimated Glomerular Filt Rate > 60.0 mL/min (>60); Glucose 150 mg/dL (70-100); HEMOLYSIS < 15 (0-50); Magnesium 2.4 mg/dL (1.6-2.3); Potassium 4.4 mmol/L (3.4-5.1); Sodium 130 mmol/L (137-145)
[2020-04-13] MEDS: LORazepam 0.5 MG TABLET PO ×3 (05:58→17:14)
[2020-04-13] MEDS: INSULIN ASPART 100 UNIT/ML INSULN PEN SUBCUT ×3 (05:59→17:11)
[2020-04-13] MEDS: ALBUTEROL/IPRATROPIUM 3 ML AMPUL INH ×3 (06:23→20:05)
[2020-04-13] MEDS: BUDESONIDE 0.5 MG/2 ML NEB INH ×2 (06:24→20:04)
--- NOTE | 2020-04-13 06:45 | PC.NURSE ---
Patient slept majority of the shift except for getting up to use bedside commode x2. Patient states she did not sleep well, however. Patient expresses she is nervous about a visit from her daughter today (coming in from [place]). Patient requesting 1 dose of PRN Ativan this morning for anxiousness. Patient remains on heated hi flow, however, Fi02 increased by RT due to patient desaturating this AM. Patient's sats were 84% on 30% Fi02, RT increased patient to 40% Fi02 and 30L. Sats up to 93%. Patient bradycardic throughout the night as she slept, but vital signs remained stable. Patient comfortable in bed at present time.
[2020-04-13] MEDS: OXcarbazepine 150 MG TABLET 300 MG PO (08:25)
[2020-04-13] MEDS: ENOXAPARIN 40 MG/0.4 ML SYRINGE SUBCUT (08:25)
[2020-04-13] MEDS: DULOXETINE 30 MG CAPSULE 120 MG PO (08:26)
[2020-04-13] MEDS: DOCUSATE 100 MG CAPSULE PO ×2 (08:26→20:32)
[2020-04-13] MEDS: BISACODYL 5 MG TABLET 10 MG PO (08:26)
[2020-04-13] MEDS: lisinopriL 5 MG TABLET 2.5 MG PO (08:26)
[2020-04-13] MEDS: NICOTINE 21 MG PATCH TOP (08:26)
[2020-04-13] MEDS: polyethylene glycoL 3350 17 GM POWD.PACK PO (08:26)
[2020-04-13] MEDS: GABAPENTIN 600 MG TABLET 1200 MG PO ×3 (08:27→20:32)
[2020-04-13] MEDS: PREGABALIN 75 MG CAPSULE PO ×3 (08:27→20:33)
[2020-04-13] MEDS: ACETAMINOPHEN 325 MG TABLET 650 MG PO (08:30)
[2020-04-13] MEDS: MORPHINE 2 MG/ML INJ IV ×3 (08:30→20:27)
[2020-04-13 09:02] LABS: HCO3 ABG 27 mmol/L (22-26); Oxygen Saturation ABG 96 % (95-100); PCO2 ABG 41.2 mmHg (35-45); PO2 ABG 83 mmHg (80-100); TCO2 ABG 28 mmol/L (21-31); pH ABG 7.42 (7.35-7.45)
--- NOTE | 2020-04-13 10:59 | PC.NURSE ---
Addendum entered by Randy Walls R.N. 04/13/20 14:42: RT titrated O2 to 35% Fio2 30L HHFNC. Pt has tolerated well. Current SPO2 98%. RR 19-22. Original Note: SBA to BSC. Pt maintained SPO2 93-95% on 40% FIO2 HHFNC. RR increased to mid 20s but recovered to 18 after less than a minute of rest. Pt expresses anxiety r/t weaning O2 as she is worried she will not be able to breathe again. Provided emotional support and reinforced plan of care.
--- NOTE | 2020-04-13 11:01 | PT.IPTN ---
Current Diagnoses Acute and chronic respiratory failure, unspecified whether with hypoxia or hypercapnia (04/08/20) Physical Therapy Treatment Note M2 PT-IP Current Condition Start: 04/12/20 10:15 Freq: NEEDED Status: Active Protocol: Document 04/12/20 10:15 SAK (Rec: 04/12/20 10:32 SAK [id number]) Physical Therapy Current Condition Current Condition Evaluation Date 04/12/20 Treatment Diagnosis SOB x 3 days Onset Date 3 days Precautions Other Precautions On heated hi flow oxygen at 30L (was increased to 40L by respiratory therapy during PT session) Weight Bearing Status Weight Bearing Status Full Weight Bearing M3 PT-IP Subjective Start: 04/12/20 10:15 Freq: NEEDED Status: Active Protocol: Document 04/13/20 11:01 CLB (Rec: 04/13/20 11:19 CLB [id number]) Subjective Physical Therapy Visit Type Type Treatment Note Visit Start Time 11:01 Visit Stop Time 11:12 Total Visit Minutes 11 Number of CRIBBER Visits 2 Physical Therapy Visit Comments Patient Comments Pt states she was just up to the [facility] and does not want to ambulate but was agreeable to perform bed exercises. Therapy Pain Assessment Pain When Pain Assessed At Rest Pain Present Pain Present Pain Reported Location Lower Back Scale Used did not state M4 PT-IP Mobility and Gait Start: 04/12/20 10:15 Freq: NEEDED Status: Active Protocol: Document 04/12/20 14:10 KS (Rec: 04/12/20 15:54 KS [id number]) PT-Bed Mobility Assessment Supine to Sit Supine to Sit Standby Assistance,Head of Bed Elevated PT-Transfer Assessment Comments Mobility Comments Pt in bed upon arrival from therapy and reported fatigue from previous activity and several hours spent in chair, but agreed to perform LE exercises to promote strengthening and blood flow. Pt completed 1x10 bilateral ankle pumps, quad sets, glute sets, and heel slides. Pt tolerated exercises well, with cues for breathing throughout . Dr. Hester arrived during treatment and discussed pts prognosis. Gait Assessment Comments Gait Comments Not assessed d/t fatigue. M5 PT-IP Objective Assessments Start: 04/12/20 10:15 Freq: NEEDED Status: Active Protocol: Document 04/12/20 10:15 SAK (Rec: 04/12/20 10:32 SAK [email or web address]) Orientation Orientation/Cognition Level of Alertness Alert Orientation Name,Place,Situation Language Function Ability No Deficits Noted Safety Awareness Understands Safety Issues Gross Range of Motion Upper Extremity ROM Assessment Within Functional Limits Lower Extremity ROM Assessment Within Functional Limits Strength Upper Extremity Strength Assessment Within Functional Limits Lower Extremity Strength Assessment Within Functional Limits Comments Strength Comments low muscle endurance Coordination Assessment Gross Coordination Gross Coordination WNL Sensation Assessment Sensation Gross Sensation Right LE Impaired,Left LE Impaired Sensation Description Numbness Comments Sensation Comments neuropathy bilaterally Muscle Tone Muscle Tone WNL Yes M6 PT-IP Treatment Start: 04/12/20 10:15 Freq: NEEDED Status: Active Protocol: Document 04/13/20 11:01 CLB (Rec: 04/13/20 11:19 CLB [id number]) Physical Therapy Treatment Exercises Exercises Ankle Pumps,Gluteal Sets,Quad Sets,Heel Slides M7 PT-IP Assessment and Plan Start: 04/12/20 10:15 Freq: NEEDED Status: Active Protocol: Document 04/13/20 11:01 CLB (Rec: 04/13/20 11:19 CLB [id number]) PT Summary Assessment and Plan Potential Rehabilitation Potential Fair Status of Condition at Evaluation Evolving Summary Impairments Strength,Gait,Activity Tolerance Goals Bed Mobility Goal Independent Transfer Goal Independent Gait Goal Independent Gait Distance 200' Days to Meet Goals 5 Frequency of Treatment Frequency Of Treatment Once a Day Treatment Plan Physical Therapy Treatment Plan Bed Mobility Training,Transfer Training,Gait Training, Therapeutic Exercise,Discharge Planning Recommendations To Nursing Amount of Assist Needed 2 Person Assist Discharge Recommendations PT Discharge Recommendations Home with Assistance,Home Health Equipment Needed for Home Before further assessment needed Discharge
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
[2020-04-13] MEDS: AMITRIPTYLINE 25 MG TABLET 100 MG PO (20:31)
[2020-04-13] MEDS: PRIMIDONE 50 MG TABLET PO (20:33)
[2020-04-13] MEDS: QUETIAPINE 25 MG TABLET 100 MG PO (20:33)
[2020-04-13] MEDS: SIMVASTATIN 20 MG TABLET PO (20:33)
[2020-04-14] VITALS (55 sets, daily range): BP systolic 100–130; BP diastolic 53–74; PULSE 52–79; RESP 9–20; TEMP 36.2–37.2; O2SAT 84–100
[2020-04-14] MEDS: FAMOTIDINE 20 MG/50 ML PIGGYBACK 200 MG IV (00:41)
[2020-04-14] MEDS: methylPREDNISolone 125 MG/2 ML VIAL 60 MG IV ×3 (00:49→16:30)
[2020-04-14] MEDS: CALCIUM CARBONATE 500 MG TAB PO ×2 (00:51→05:00)
[2020-04-14 05:28] LABS: BUN Creatinine Ratio 28.6 (6-22); Blood Urea Nitrogen 10 mg/dL (7-17); Calcium 8.2 mg/dL (8.4-10.2); Carbon Dioxide 30 mmol/L (22-32); Chloride 97 mmol/L (98-107); Estimated Glomerular Filt Rate > 60.0 mL/min (>60); Glucose 185 mg/dL (70-100); HEMOLYSIS < 15 (0-50); Potassium 4.6 mmol/L (3.4-5.1); Sodium 129 mmol/L (137-145)
[2020-04-14] MEDS: BUDESONIDE 0.5 MG/2 ML NEB INH ×2 (05:45→19:04)
[2020-04-14] MEDS: ALBUTEROL/IPRATROPIUM 3 ML AMPUL INH ×3 (05:45→19:04)
[2020-04-14] MEDS: polyethylene glycoL 3350 17 GM POWD.PACK PO (08:39)
[2020-04-14] MEDS: ENOXAPARIN 40 MG/0.4 ML SYRINGE SUBCUT (08:39)
[2020-04-14] MEDS: DULOXETINE 30 MG CAPSULE 120 MG PO (08:40)
[2020-04-14] MEDS: GABAPENTIN 600 MG TABLET 1200 MG PO ×3 (08:40→20:54)
[2020-04-14] MEDS: NICOTINE 21 MG PATCH TOP (08:40)
[2020-04-14] MEDS: lisinopriL 5 MG TABLET 2.5 MG PO (08:41)
[2020-04-14] MEDS: BISACODYL 5 MG TABLET 10 MG PO (08:41)
[2020-04-14] MEDS: PREGABALIN 75 MG CAPSULE PO ×3 (08:41→20:53)
[2020-04-14] MEDS: MORPHINE 2 MG/ML INJ IV ×3 (08:41→18:05)
[2020-04-14] MEDS: LORazepam 0.5 MG TABLET PO ×3 (08:41→20:54)
[2020-04-14] MEDS: OXcarbazepine 150 MG TABLET 300 MG PO (08:42)
[2020-04-14] MEDS: INSULIN ASPART 100 UNIT/ML INSULN PEN SUBCUT ×4 (08:42→20:54)
[2020-04-14] MEDS: DOCUSATE 100 MG CAPSULE PO ×2 (08:59→20:54)
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
--- NOTE | 2020-04-14 11:13 | PT.IPTN ---
Current Diagnoses Acute and chronic respiratory failure, unspecified whether with hypoxia or hypercapnia (04/08/20) Physical Therapy Treatment Note M2 PT-IP Current Condition Start: 04/12/20 10:15 Freq: NEEDED Status: Active Protocol: Document 04/12/20 10:15 SAK (Rec: 04/12/20 10:32 SAK [email or web address]) Physical Therapy Current Condition Current Condition Evaluation Date 04/12/20 Treatment Diagnosis SOB x 3 days Onset Date 3 days Precautions Other Precautions On heated hi flow oxygen at 30L (was increased to 40L by respiratory therapy during PT session) Weight Bearing Status Weight Bearing Status Full Weight Bearing M3 PT-IP Subjective Start: 04/12/20 10:15 Freq: NEEDED Status: Active Protocol: Document 04/14/20 10:59 CLB (Rec: 04/14/20 13:21 CLB [id number]) Subjective Physical Therapy Visit Type Type Treatment Note Visit Start Time 10:59 Visit Stop Time 11:13 Total Visit Minutes 14 Number of TANKER DRIVER Visits 3 Physical Therapy Visit Comments Patient Comments Pt willing to ambulate with therapy. M4 PT-IP Mobility and Gait Start: 04/12/20 10:15 Freq: NEEDED Status: Active Protocol: Document 04/14/20 10:59 CLB (Rec: 04/14/20 13:21 CLB [id number]) PT-Transfer Assessment Sit to and From Stand Sit to and from Stand Standby Assistance Equipment Transfer Assistive Device None,Gait Belt,4 Wheeled Walker Orthotic/Prosthetic Devices or Brace: No Transfers Transfer Destination Chair Transfer Technique walked Transfer Ability Level of Assist Standby Assistance Comments Mobility Comments Pt walking out of BR upon arrival. Pt not using AD with URBAN PLANNING PROFESSOR providing SBA. Pt had good standing balance. Pt on 2L O2 ambulated in [place] with 4WW SBA with assist of O2 tank. Pt ambulated ~150ft taking slow small steps, pt SpO2 on 2L ranged from 93-96% during activity. Pt returned to room, parked 4WW and ambulated to chair w/o AD SBA. Left pt in chair with all needs within reach, RN present to assist with shower. Gait Assessment Gait Gait Assistance Required: Standby Assistance Distance (Feet) 150 Able to Maintain Weight Bearing Status Yes During Gait Assistive Devices Assistive Device None,Gait Belt,4 Wheeled Walker Orthotic/Prosthetic Devices or Brace: No Gait Deviations General Gait Pattern Decreased Stride Length, Decreased Feet Clearance Factors Limiting Gait Function Factors Limiting Gait Function Decreased Activity Tolerance, Decreased Strength,Respiratory Distress Comments Gait Comments Please see mobility comments. Stair Climbing Assessment Comments Stair Climbing Comments ramp into home M5 PT-IP Objective Assessments Start: 04/12/20 10:15 Freq: NEEDED Status: Active Protocol: Document 04/12/20 10:15 SAK (Rec: 04/12/20 10:32 SAK [email or web address]) Orientation Orientation/Cognition Level of Alertness Alert Orientation Name,Place,Situation Language Function Ability No Deficits Noted Safety Awareness Understands Safety Issues Gross Range of Motion Upper Extremity ROM Assessment Within Functional Limits Lower Extremity ROM Assessment Within Functional Limits Strength Upper Extremity Strength Assessment Within Functional Limits Lower Extremity Strength Assessment Within Functional Limits Comments Strength Comments low muscle endurance Coordination Assessment Gross Coordination Gross Coordination WNL Sensation Assessment Sensation Gross Sensation Right LE Impaired,Left LE Impaired Sensation Description Numbness Comments Sensation Comments neuropathy bilaterally Muscle Tone Muscle Tone WNL Yes M6 PT-IP Treatment Start: 04/12/20 10:15 Freq: NEEDED Status: Active Protocol: Document 04/14/20 10:59 CLB (Rec: 04/14/20 13:21 CLB [id number]) Physical Therapy Treatment Exercises Exercises Seated Knee Flexion/Extension M7 PT-IP Assessment and Plan Start: 04/12/20 10:15 Freq: NEEDED Status: Active Protocol: Document 04/14/20 10:59 CLB (Rec: 04/14/20 13:21 CLB [id number]) PT Summary Assessment and Plan Potential Rehabilitation Potential Fair Status of Condition at Evaluation Evolving Summary Impairments Strength,Gait,Activity Tolerance Assessment Summary Pt improving with gait distance ambulating ~150ft with 4WW requiring SBA. Pt SpO2 on 2L during activity ranged from 93-96%. Goals Bed Mobility Goal Independent Transfer Goal Independent Gait Goal Independent Gait Distance 200' Days to Meet Goals 5 Frequency of Treatment Frequency Of Treatment Once a Day Treatment Plan Physical Therapy Treatment Plan Bed Mobility Training,Transfer Training,Gait Training, Therapeutic Exercise,Discharge Planning Recommendations To Nursing Amount of Assist Needed 1 Person Assist Discharge Recommendations PT Discharge Recommendations Home with Assistance,Home Health Equipment Needed for Home Before further assessment needed Discharge Transportation Needs at Discharge Private Vehicle
--- NOTE | 2020-04-14 15:47 | CM.DANOTE ---
DCP/continued: Reviewed chart. Per provider in AM rounds, patient showing improvement. First day that patient not on high flow O2. Patient up in chair, alert and oriented at time of CERTIFIED HYPERBARIC TECHNOLOGIST visit. Patient reports that she hopes to d/c soon. Provider anticipates a few more days. Patient offered the option of having palliative consult to discuss intermediate goals/planning. Patient in agreement but no palliative provider not available until Tuesday. If patient discharges prior to Tuesday (which most likely will happen) will provide her with information to f/u with outpatient palliative if she remains interested. P: Home with home health when medically stable. CERTIFIED HYPERBARIC TECHNOLOGIST to continue to follow closely. NIGHAT Paige
[2020-04-14 16:09] LABS: Legionella pneumo Antigen Negative (Negative)
--- NOTE | 2020-04-14 16:32 | OT.IP.TRT ---
Current Diagnoses Acute and chronic respiratory failure, unspecified whether with hypoxia or hypercapnia (04/08/20) Occupational Therapy Treatment Note M2 OT-IP Current Condition Start: 04/12/20 13:22 Freq: Status: Active Protocol: Document 04/12/20 13:22 CGR (Rec: 04/12/20 13:41 CGR [email or web address]) Occupational Therapy Current Condition Current Condition Evaluation Date 04/12/20 Treatment Diagnosis SOB, PNA, acute on chronic respiratory failure. Diagnosis Onset Date 04/11/20 M3 OT- IP Subjective and Pain Start: 04/12/20 13:22 Freq: Status: Active Protocol: Document 04/14/20 16:32 CGR (Rec: 04/14/20 16:32 CGR [id number]) OT- Subjective Occupational Therapy Visit Type Type Administrative Note Notes Attempted to see for OT services. Pt declined all ADLs at this time stating that she showered earlier today and wants to rest. Will hold and continue to follow. Possible d /c home tomorrow. M4 OT- IP ADL's Start: 04/12/20 13:22 Freq: Status: Active Protocol: Document 04/12/20 13:22 CGR (Rec: 04/12/20 13:41 CGR [email or web address]) OT [id number] Comments OT Self-Feeding Comments not meal time OT ADL-Grooming General Evaluation Grooming Ability Standby Assistance Areas Needing Assistance Retrieving/Set-up of Grooming Items,Face Washing Comments OT Grooming Comments seated in chair OT ADL-Oral Care General Eval Oral Care Ability Standby Assistance Areas of Assistance Brushing Teeth,Retrieving/Set- Up of Items Comments Oral Care Comments seated in chair. OT ADL-Dressing General Eval Lower Body Dressing Ability Total Assistance Areas Needing Assistance Socks Comments OT Dressing Comments seated in chair OT ADL-Toileting Comments OT Toileting Comments not performed OT ADL-Bathing Bathing Type Bathing Type Sponge Bath General Evaluation Bathing Ability Minimal Assistance Areas Needing Assistance Retrieving/Setting Up Items Comments OT Bathing Comments Pt performed seated in chair. Pt states she would like to wash up her upper body. Pt provided with warm wash cloths and pt was able to perform arm and chest cleaning without assist. Pt declined further cleaning at this time but is interested in a shower soon. M5 OT- IP IADL's Start: 04/12/20 13:22 Freq: Status: Active Protocol: Document 04/12/20 13:22 CGR (Rec: 04/12/20 13:41 CGR [email or web address]) OT-Instrumental Activities of Daily Living Deficits IADL Deficits Identified Deficits Home Safety Awareness Awareness of Need for Assistance at Home Good Awareness Ability to Problem Solve Emergency Able to Problem Solve Situations Medication Management Medication Management No Deficits Identified Money Management Money Management No Deficits Identified Meal Preparation Meal Preparation Caregiver Provides Assist Ambulance Paramedic Ambulance Paramedic Caregiver Provides Assist Driving Driving Comments Pt states that she has not driven in 5 years. M6 OT- IP Functional Cognition Start: 04/12/20 13:22 Freq: Status: Active Protocol: Document 04/12/20 13:22 CGR (Rec: 04/12/20 13:41 CGR [email or web address]) Cognitive Factors Limiting Selfcare Function Cognitive Ability Level of Alertness Alert Patient Orientation Name,Age,Birthday,Month,Date, Year,Day of Week,Place, Situation Attention Span Ability Capable of Focused Attention, Capable of Sustained Attention Ability to Follow Commands Able to Follow One Step Commands Memory Description No Deficits Noted Safety Awareness No Deficits Noted Cognitive Comments Cognitive Assessment Comments Pt would benefit from formal cog assessment. OT- Vision and Hearing OT- Hearing Assessment OT- Hearing Assessment WFL OT- Vision Assessment Visual Acuity WFL,Glasses All The Time Visual Attentiveness WFL Occular Pursuits WFL Visual Convergence WFL Vision Assessment Comments Pt wears bifocals M7 OT- IP Mobility and Balance Start: 04/12/20 13:22 Freq: Status: Active Protocol: Document 04/12/20 13:22 CGR (Rec: 04/12/20 13:41 CGR [email or web address]) OT-Transfer Assessment Sit to and From Stand Sit to and from Stand Contact Guard Assistance Transfers Transfer Ability Contact Guard Assistance, Minimal Assistance Technique Transfer Destination Chair Transfer Technique Stand Step Pivot Devices Transfer Assistive Devices Gait Belt Comments Mobility Comments Pt performed sit to stand and marching in place with gait belt. Pt needed min a for maintaining balance with marching but states that she typically has her 4ww. OT- Balance Assessment Sitting Balance and Reactions Static Sitting Balance Ability Good Dynamic Sitting Balance Ability Fair M8 OT- IP Objective Assessments Start: 04/12/20 13:22 Freq: Status: Active Protocol: Document 04/12/20 13:22 CGR (Rec: 09/19/20 13:41 CGR [email or web address]) OT Gross Range of Motion Upper Extremity Range of Motion Assessment Bilaterally Impaired ROM Impairments B shld impairment with pain. Pt with greater ROM to the RUE than the LUE. OT Strength Upper Extremity Strength Assessment Within Functional Limits Comments Strength Comments 4-/5 throguhout OT- Coordination Assessment Upper Extremity Finger to Nose Test Within Functional Limits Finger Tapping Test Within Functional Limits OT-Muscle Tone Assessment Muscle Tone WNL Yes OT Sensation Assessment Edema Edema Absent M9 OT- IP Assessment and Plan Start: 04/12/20 13:22 Freq: Status: Active Protocol: Document 04/12/20 13:22 CGR (Rec: 04/12/20 13:41 CGR [email or web address]) OT Summary Assessment and Plan Potential Rehabilitation Potential Fair Analytic Complexity at Evaluation Moderate Summary OT Impairments Range of Motion,Strength, Balance,Functional Mobility, Grooming,Dressing,Toileting, Bathing,Toilet Transfers, Shower Transfers,Activity Tolerance Progress Towards Goals Slow Progress due to Medical Issues,Slow Progress due to Activity Tolerance Assessment Summary Pt presents as a moderate complexity evaluation s/p decline in respiratory status. Pt with significant hx of respiratory disorders and making slow progress at this time. Pt will benefit form continued OT services to address declines. Recommendation at this time is for SNF but as pt's endurance improves pt may be appropriate for d/c home. Goals Grooming Goal Independent Dressing Goal Independent Toileting Goal Independent Bathing Goal Independent,Grab Bars,Hand Held Shower Sprayer Toilet Transfer Goal Independent,Raised Toilet Seat With Rails,Grab Bars Shower Transfer Goal Independent,Walk-in Shower, Shower Chair Days to Meet Goals 15 Frequency of Treatment Frequency Of Treatment Once a Day Treatment Plan OT Treatment Plan ADL Training,Functional Mobility,Patient/Family Education,Discharge Planning Other Treatment Recommendations and Next slums, shower Treatment Focus Discharge Recommendations OT Discharge Recommendations SNF Rehab Transportation Needs at Discharge Private Vehicle
[2020-04-14] MEDS: PRIMIDONE 50 MG TABLET PO (20:53)
[2020-04-14] MEDS: SIMVASTATIN 20 MG TABLET PO (20:53)
[2020-04-14] MEDS: SENNOSIDES 8.6 MG TABLET 17.2 MG PO (20:53)
[2020-04-14] MEDS: FAMOTIDINE 20 MG TABLET PO (20:53)
[2020-04-14] MEDS: QUETIAPINE 25 MG TABLET 100 MG PO (20:54)
[2020-04-14] MEDS: AMITRIPTYLINE 25 MG TABLET 100 MG PO (20:54)
[2020-04-15] VITALS (12 sets, daily range): BP systolic 100–110; BP diastolic 55–61; PULSE 49–76; RESP 16–18; TEMP 36.1–37.1; O2SAT 93–99
--- NOTE | 2020-04-15 00:21 | PC.NURSE ---
Evening shift note: Pt sitting up in bed watching TV, currently on 3L NC, with tubing lengthened so she can ambulate to bathroom at will. Pt becomes slightly SOB with exertion, but recovers quickly. Up to chair for several hours during dayshift, without needing much assistance. Ambulating to bathroom for voiding, adequate volume. Pt remains constipated, given dulcolax and senna PO per MD order and pt request. Continues to require 2mg Morphine PRN pain and 0.5 Lorazepam PRN anxiety. Tolerating diet well, blood glucose have been in the upper 180-190's. No other changes to medication or plan, possible discharge tomorrow. Bed low and locked, alarm on for safety, Will continue to monitor, notify MD with changes.
[2020-04-15] MEDS: methylPREDNISolone 125 MG/2 ML VIAL 60 MG IV (01:08)
[2020-04-15] MEDS: MORPHINE 2 MG/ML INJ IV (03:15)
[2020-04-15 05:44] LABS: BUN Creatinine Ratio 27.3 (6-22); Blood Urea Nitrogen 9 mg/dL (7-17); Calcium 8.1 mg/dL (8.4-10.2); Carbon Dioxide 30 mmol/L (22-32); Chloride 96 mmol/L (98-107); Estimated Glomerular Filt Rate > 60.0 mL/min (>60); Glucose 175 mg/dL (70-100); HEMOLYSIS < 15 (0-50); Potassium 4.5 mmol/L (3.4-5.1); Sodium 129 mmol/L (137-145)
[2020-04-15] MEDS: LORazepam 0.5 MG TABLET PO ×2 (08:32→14:11)
[2020-04-15] MEDS: INSULIN ASPART 100 UNIT/ML INSULN PEN SUBCUT ×2 (08:33→12:27)
[2020-04-15] MEDS: BISACODYL 5 MG TABLET 10 MG PO (08:34)
[2020-04-15] MEDS: GABAPENTIN 600 MG TABLET 1200 MG PO ×2 (08:34→14:11)
[2020-04-15] MEDS: DULOXETINE 30 MG CAPSULE 120 MG PO (08:34)
[2020-04-15] MEDS: DOCUSATE 100 MG CAPSULE PO (08:34)
[2020-04-15] MEDS: lisinopriL 5 MG TABLET 2.5 MG PO (08:34)
[2020-04-15] MEDS: ENOXAPARIN 40 MG/0.4 ML SYRINGE SUBCUT (08:34)
[2020-04-15] MEDS: FAMOTIDINE 20 MG TABLET PO (08:34)
[2020-04-15] MEDS: NICOTINE 21 MG PATCH TOP (08:35)
[2020-04-15] MEDS: predniSONE 20 MG TABLET 60 MG PO (08:35)
[2020-04-15] MEDS: SODIUM CHLORIDE 0.9% FLUSH 10 ML IV (08:36)
[2020-04-15] MEDS: OXcarbazepine 150 MG TABLET 300 MG PO (08:36)
[2020-04-15] MEDS: PREGABALIN 75 MG CAPSULE PO ×2 (08:36→14:11)
[2020-04-15] MEDS: polyethylene glycoL 3350 17 GM POWD.PACK PO (08:36)
[2020-04-15] MEDS: ALBUTEROL/IPRATROPIUM 3 ML AMPUL INH ×2 (08:42→13:31)
[2020-04-15] MEDS: BUDESONIDE 0.5 MG/2 ML NEB INH (08:42)
--- NOTE | 2020-04-15 09:36 | PT.IPTN ---
Current Diagnoses Acute and chronic respiratory failure, unspecified whether with hypoxia or hypercapnia (04/08/20) Physical Therapy Treatment Note M2 PT-IP Current Condition Start: 04/12/20 10:15 Freq: NEEDED Status: Active Protocol: Document 04/12/20 10:15 SAK (Rec: 04/12/20 10:32 SAK [email or web address]) Physical Therapy Current Condition Current Condition Evaluation Date 04/12/20 Treatment Diagnosis SOB x 3 days Onset Date 3 days Precautions Other Precautions On heated hi flow oxygen at 30L (was increased to 40L by respiratory therapy during PT session) Weight Bearing Status Weight Bearing Status Full Weight Bearing M3 PT-IP Subjective Start: 04/12/20 10:15 Freq: NEEDED Status: Active Protocol: Document 04/15/20 09:24 CLB (Rec: 04/15/20 12:06 CLB [id number]) Subjective Physical Therapy Visit Type Type Treatment Note Visit Start Time 09:24 Visit Stop Time 09:41 Total Visit Minutes 15 Number of IMPORT/EXPORT CLERK Visits 4 Physical Therapy Visit Comments Patient Comments Pt willing to ambulate with therapy. M4 PT-IP Mobility and Gait Start: 04/12/20 10:15 Freq: NEEDED Status: Active Protocol: Document 04/15/20 09:24 CLB (Rec: 04/15/20 12:06 CLB [id number]) PT-Transfer Assessment Sit to and From Stand Sit to and from Stand Standby Assistance Equipment Transfer Assistive Device Gait Belt,4 Wheeled Walker Orthotic/Prosthetic Devices or Brace: No Transfers Transfer Destination Chair Transfer Technique walked Transfer Ability Level of Assist Standby Assistance Comments Mobility Comments Pt stood SBA from chair and ambulated on 3L O2. Pt ambulated with slow steady gait and SBA. Pt returned to room sitting in chair SBA and performed seated marches and knee ext/flx. Left pt in room on 1.5L O2. SpO2 ranged from 88-99% on 3L depending if pt was talking. Gait Assessment Gait Gait Assistance Required: Standby Assistance Distance (Feet) 150 Able to Maintain Weight Bearing Status Yes During Gait Assistive Devices Assistive Device Gait Belt,4 Wheeled Walker Gait Deviations General Gait Pattern Decreased Stride Length, Decreased Feet Clearance Factors Limiting Gait Function Factors Limiting Gait Function Decreased Activity Tolerance, Decreased Strength,Respiratory Distress Comments Gait Comments Please see mobility comments. M5 PT-IP Objective Assessments Start: 04/12/20 10:15 Freq: NEEDED Status: Active Protocol: Document 04/12/20 10:15 SAK (Rec: 04/12/20 10:32 SAK [email or web address]) Orientation Orientation/Cognition Level of Alertness Alert Orientation Name,Place,Situation Language Function Ability No Deficits Noted Safety Awareness Understands Safety Issues Gross Range of Motion Upper Extremity ROM Assessment Within Functional Limits Lower Extremity ROM Assessment Within Functional Limits Strength Upper Extremity Strength Assessment Within Functional Limits Lower Extremity Strength Assessment Within Functional Limits Comments Strength Comments low muscle endurance Coordination Assessment Gross Coordination Gross Coordination WNL Sensation Assessment Sensation Gross Sensation Right LE Impaired,Left LE Impaired Sensation Description Numbness Comments Sensation Comments neuropathy bilaterally Muscle Tone Muscle Tone WNL Yes M6 PT-IP Treatment Start: 04/12/20 10:15 Freq: NEEDED Status: Active Protocol: Document 04/15/20 09:24 CLB (Rec: 04/15/20 12:06 CLB [id number]) Physical Therapy Treatment Exercises Exercises Seated Knee Flexion/Extension Other Treatments Other Treatment Performed seated marches M7 PT-IP Assessment and Plan Start: 04/12/20 10:15 Freq: NEEDED Status: Active Protocol: Document 04/15/20 09:24 CLB (Rec: 04/15/20 12:06 CLB [id number]) PT Summary Assessment and Plan Potential Rehabilitation Potential Fair Status of Condition at Evaluation Evolving Summary Impairments Strength,Gait,Activity Tolerance Assessment Summary Pt able to ambulate ~150ft with 4WW/SBA. Pt requiring SBA for sit<>stand. Pt with steady gait and good safety awareness during ambulation. Pt will benefit from PT to improve strength and activity tolerance. Goals Bed Mobility Goal Independent Transfer Goal Independent Gait Goal Independent Gait Distance 200' Days to Meet Goals 5 Frequency of Treatment Frequency Of Treatment Once a Day Treatment Plan Physical Therapy Treatment Plan Bed Mobility Training,Transfer Training,Gait Training, Therapeutic Exercise,Discharge Planning Recommendations To Nursing Amount of Assist Needed 1 Person Assist Discharge Recommendations PT Discharge Recommendations Home with Assistance,Home Health Equipment Needed for Home Before none Discharge Transportation Needs at Discharge Private Vehicle
[2020-04-15 09:48] LABS: Fractionated Inspired Oxygen 32; HCO3 ABG 29 mmol/L (22-26); Oxygen Saturation ABG 96 % (95-100); PCO2 ABG 45.1 mmHg (35-45); PO2 ABG 84 mmHg (80-100); TCO2 ABG 31 mmol/L (21-31); pH ABG 7.42 (7.35-7.45)
[2020-04-15] MEDS: OXYCODONE IR 5 MG TABLET PO (10:32)
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
--- NOTE | 2020-04-15 11:37 | OT.IP.TRT ---
Current Diagnoses Acute and chronic respiratory failure, unspecified whether with hypoxia or hypercapnia (04/08/20) Occupational Therapy Treatment Note M2 OT-IP Current Condition Start: 04/12/20 13:22 Freq: Status: Active Protocol: Document 04/12/20 13:22 CGR (Rec: 04/12/20 13:41 CGR [email or web address]) Occupational Therapy Current Condition Current Condition Evaluation Date 04/12/20 Treatment Diagnosis SOB, PNA, acute on chronic respiratory failure. Diagnosis Onset Date 04/11/20 M3 OT- IP Subjective and Pain Start: 04/12/20 13:22 Freq: Status: Active Protocol: Document 04/15/20 12:00 CGR (Rec: 04/15/20 12:05 CGR [id number]) OT- Subjective Occupational Therapy Visit Type Type Progress Note Visit Start Time 11:14 Visit Stop Time 11:37 Total Visit Minutes 23 Notes Pt is preparing for discharge OT Pain Assessment Pain When Pain Assessed At Rest Pain Present Pain Present Denied Pain M4 OT- IP ADL's Start: 04/12/20 13:22 Freq: Status: Active Protocol: Document 04/15/20 12:00 CGR (Rec: 04/15/20 12:05 CGR [id number]) OT [id number] Comments OT Self-Feeding Comments not meal time OT ADL-Grooming Comments OT Grooming Comments pt declined at this time OT ADL-Oral Care Comments Oral Care Comments pt declined at this time OT ADL-Dressing General Eval Upper Body Dressing Ability Standby Assistance Lower Body Dressing Ability Standby Assistance Areas Needing Assistance Retrieving/Set-up of Clothing, Pull-Over Shirt,Button-Up Shirt/Blouse,Underpants/Brief, Pants/Shorts,Socks,Shoes Comments OT Dressing Comments Pt performed all dressing seated in chair using energy conservation techniques without verbal cues. OT ADL-Toileting Comments OT Toileting Comments pt declined need OT ADL-Bathing Comments OT Bathing Comments pt declined M5 OT- IP IADL's Start: 04/12/20 13:22 Freq: Status: Active Protocol: Document 04/12/20 13:22 CGR (Rec: 04/12/20 13:41 CGR [email or web address]) OT-Instrumental Activities of Daily Living Deficits IADL Deficits Identified Deficits Home Safety Awareness Awareness of Need for Assistance at Home Good Awareness Ability to Problem Solve Emergency Able to Problem Solve Situations Medication Management Medication Management No Deficits Identified Money Management Money Management No Deficits Identified Meal Preparation Meal Preparation Caregiver Provides Assist Order Administrator Order Administrator Caregiver Provides Assist Driving Driving Comments Pt states that she has not driven in 5 years. M6 OT- IP Functional Cognition Start: 04/12/20 13:22 Freq: Status: Active Protocol: Document 04/12/20 13:22 CGR (Rec: 04/12/20 13:41 CGR [id number]) Cognitive Factors Limiting Selfcare Function Cognitive Ability Level of Alertness Alert Patient Orientation Name,Age,Birthday,Month,Date, Year,Day of Week,Place, Situation Attention Span Ability Capable of Focused Attention, Capable of Sustained Attention Ability to Follow Commands Able to Follow One Step Commands Memory Description No Deficits Noted Safety Awareness No Deficits Noted Cognitive Comments Cognitive Assessment Comments Pt would benefit from formal cog assessment. OT- Vision and Hearing OT- Hearing Assessment OT- Hearing Assessment WFL OT- Vision Assessment Visual Acuity WFL,Glasses All The Time Visual Attentiveness WFL Occular Pursuits WFL Visual Convergence WFL Vision Assessment Comments Pt wears bifocals M7 OT- IP Mobility and Balance Start: 04/12/20 13:22 Freq: Status: Active Protocol: Document 04/15/20 12:00 CGR (Rec: 04/15/20 12:05 CGR [id number]) OT-Transfer Assessment Sit to and From Stand Sit to and from Stand Standby Assistance Devices Transfer Assistive Devices Gait Belt Comments Mobility Comments Pt stood for donning lb dressing but otherwise was seated throughout session. OT- Balance Assessment Sitting Balance and Reactions Static Sitting Balance Ability Good Dynamic Sitting Balance Ability Fair M8 OT- IP Objective Assessments Start: 04/12/20 13:22 Freq: Status: Active Protocol: Document 04/12/20 13:22 CGR (Rec: 04/12/20 13:41 CGR [id number]) OT Gross Range of Motion Upper Extremity Range of Motion Assessment Bilaterally Impaired ROM Impairments B shld impairment with pain. Pt with greater ROM to the RUE than the LUE. OT Strength Upper Extremity Strength Assessment Within Functional Limits Comments Strength Comments 4-/5 throguhout OT- Coordination Assessment Upper Extremity Finger to Nose Test Within Functional Limits Finger Tapping Test Within Functional Limits OT-Muscle Tone Assessment Muscle Tone WNL Yes OT Sensation Assessment Edema Edema Absent M9 OT- IP Assessment and Plan Start: 04/12/20 13:22 Freq: Status: Active Protocol: Document 04/15/20 12:00 CGR (Rec: 04/15/20 12:05 CGR [id number]) OT Summary Assessment and Plan Potential Rehabilitation Potential Fair Analytic Complexity at Evaluation Moderate Summary OT Impairments Range of Motion,Strength, Balance,Functional Mobility, Grooming,Dressing,Toileting, Bathing,Toilet Transfers, Shower Transfers,Activity Tolerance Progress Towards Goals Slow Progress due to Medical Issues,Slow Progress due to Activity Tolerance Assessment Summary Pt presents as a moderate complexity evaluation s/p decline in respiratory status. Pt is progressing well and now presents close to her baseline currently at SBA for all performed ADLS and limited mobility. Plan is for d/c home today. Goals Grooming Goal Independent Dressing Goal Independent Toileting Goal Independent Bathing Goal Independent,Grab Bars,Hand Held Shower Sprayer Toilet Transfer Goal Independent,Raised Toilet Seat With Rails,Grab Bars Shower Transfer Goal Independent,Walk-in Shower, Shower Chair Days to Meet Goals 15 Frequency of Treatment Frequency Of Treatment Once a Day Treatment Plan OT Treatment Plan ADL Training,Functional Mobility,Patient/Family Education,Discharge Planning Other Treatment Recommendations and Next slums, shower Treatment Focus Discharge Recommendations OT Discharge Recommendations Home with Assistance Transportation Needs at Discharge Private Vehicle
--- NOTE | 2020-04-15 11:58 | CM.DANOTE ---
DCP/continued: Reviewed chart. Received notification from provider that patient medically stable for discharge today. Met with patient to discuss plan. Patient up ambulating in room with 02 and walker Independently. Patient agreeable to home with home health and has no preference of agencies. Therefore, placed call to [facility] spoke with Giuliano. D/C summary, and F2F, with demographic sheet faxed. Per Giuliano, he will obtain any additional information from medical records due to CM staff shortage. Patient requesting assistance with transport home. [facility] came [facility] via [facility]. Completed Medicaid transport request form and faxed to home and community. Provided return number/name of RN/Lisa on the floor. P: D/C home today with [facility]. Medicaid to provide transport. Patient reports that her caregiver will machine operator picker any prescriptions. NIGHAT Paige
== END 2020-04-15 15:30 | disposition home or self-care (01) | DRG 189 ==
LOC: ED 15:09 → AC 16:28 → ICU 16:48
PROVIDERS: Internal Medicine; Nurse Practitioner Adult Health; Admitting Provider Internal Medicine; Emergency Provider Emergency Medicine; PCP Family Medicine; Referring Provider Emergency Medicine; Visit Provider Internal Medicine
DX: J96.21 Acute and chronic respiratory failure with hypoxia (principal); J18.9 Pneumonia, unspecified organism; E87.1 Hypo-osmolality and hyponatremia; J44.1 Chronic obstructive pulmonary disease with (acute) exacerbation; E46 Unspecified protein-calorie malnutrition; J44.0 Chronic obstructive pulmonary disease with (acute) lower respiratory infection; Z99.81 Dependence on supplemental oxygen; E11.42 Type 2 diabetes mellitus with diabetic polyneuropathy; J84.10 Pulmonary fibrosis, unspecified; J96.10 Chronic respiratory failure, unspecified whether with hypoxia or hypercapnia; I10 Essential (primary) hypertension; E78.5 Hyperlipidemia, unspecified; G89.29 Other chronic pain; F31.9 Bipolar disorder, unspecified; F41.9 Anxiety disorder, unspecified; F43.10 Post-traumatic stress disorder, unspecified; F17.210 Nicotine dependence, cigarettes, uncomplicated; Z68.23 Body mass index [BMI] 23.0-23.9, adult; Z11.59 Encounter for screening for other viral diseases; Z79.84 Long term (current) use of oral hypoglycemic drugs; Z66 Do not resuscitate
CPT/HCPCS: 36415; 36600; 71045; 71275; 80048; 80053; 81001; 82805; 82962; 83036; 83605; 83735; 83880; 84145; 84443; 84484; 85025; 85379; 87040; 87077; 87086; 87186; 87449; 87633; 87635; 87797; 87899; 93005; 93010; 94640; 94667; 94762; 96365; 96368; 96375; 97110; 97116; 97163; 97166; 97530; 97535; 99284; 99285; A9270; J0696; J1650; J2060; J2270; J2930; J7613; Q9967

== ENCOUNTER → 2020-05-22 10:08 | Outpatient (CLI) | payer MEDICARE, MEDICAID, SELFPAY ==
[2020-04-08 16:32] VITALS: BMI 22.8
--- NOTE | 2020-05-22 10:19 | DI.CT.S_ITS ---
PROCEDURE: CT CHEST HIGH RESOLUTION INDICATIONS: Interstitial pulmonary disease, unspecified TECHNIQUE: Noncontrast 1.0 and 5.0 mm thick contiguous axial sections from the pulmonary apex to the posterior costophrenic angles, with 7 mm thick coronal and sagittal MIP reformats. 1 mm thick dynamic expiratory images acquired through the upper, mid, and lower lungs. 1.0 mm thick axial sections acquired from the lisa to the posterior costophrenic angles in the prone end-inspiration position. For radiation dose reduction, the following was used: automated exposure control, adjustment of mA and/or kV according to patient size. COMPARISON: [facility], CR, XR CHEST 1V, 09/21/2019, 15:11. [facility], CT, CT ANGIO CHEST PE PROTOCOL, 04/08/2020, 13:15. FINDINGS: Image quality: Excellent. Lungs: There are is interval decrease in previously visualized bilateral areas of geographic ground-glass opacity with associated septal thickening. Mild residual septal thickening and indistinct ground-glass opacities are demonstrated involving all lobes. Subpleural reticular opacities, honeycombing, and traction bronchiectasis are not identified. There is mild scarring in the lung bases in the inferior right middle lobe and left lingula. Dynamic images demonstrate no evidence of air trapping. Pleura: No pleural effusions or pneumothorax. Mediastinum: Heart size is normal. No pericardial effusion. Thoracic aorta and central pulmonary arteries are normal in size. Multiple enlarged mediastinal lymph nodes are redemonstrated including a precarinal node measuring to approximately 1.7 cm. A resources representative subcarinal node measures up to 1.5 cm. The findings are slightly decreased from the prior study. Esophagus is normal in caliber. Bones and chest wall: No suspicious bony lesions. No vertebral body compression fractures. Abdomen: Visualized upper abdominal solid organs and bowel loops appear normal. IMPRESSION: 1. Interval decreased bilateral ground-glass opacities and septal thickening compared to the prior study. The findings are again nonspecific but likely represent a resolving inflammatory process such as hypersensitivity pneumonitis or atypical infection. The findings are not typical of chronic interstitial lung disease. Recommend correlation clinically and if indicated radiographic follow-up may be performed to demonstrate resolution. 2. Decreased but persistent mediastinal lymphadenopathy. The findings are likely reactive and less likely neoplastic in etiology. Correlation is also recommended clinically and if indicated follow-up may be performed in 3 months to demonstrate resolution. Dictated by: Rony Gallagher M.D. on 05/22/2020 at 11:07 Approved by: Rony Gallagher M.D. on 05/22/2020 at 11:17
== END ==
PROVIDERS: PCP Family Medicine; Referring Provider Internal Medicine Critical Care Medicine; Visit Provider Internal Medicine Critical Care Medicine
DX: J84.9 Interstitial pulmonary disease, unspecified (principal); R59.0 Localized enlarged lymph nodes
CPT/HCPCS: 71250